=== PATIENT | female | born 1955 | race Caucasian/White ===

== ENCOUNTER 2016-07-16 22:43 | Emergency (ER) | payer MEDICARE, MEDICAID ==
[2016-07-16] MEDS ORDERED: Ondansetron 4 MG/2 ML SDV IVPUSH ONE (22:56)
[2016-07-16] MEDS ORDERED: fentaNYL 100 MCG/2 ML SDV IVPUSH ONE (22:56)
[2016-07-16] MEDS ORDERED: Sodium Chloride 0.9% 10 ML Syringe FLUSH PRN (22:56)
[2016-07-16] MEDS ORDERED: LORazepam 2 MG/ML MDV IVPUSH ONE (22:56)
[2016-07-16] MEDS ORDERED: Sodium Chloride 0.9% 1,000 ML IV SCH (23:00)
[2016-07-17] MEDS ORDERED: Ondansetron 4 MG/2 ML SDV ONE (00:32)
[2016-07-17] MEDS ORDERED: Potassium Chloride 10 MEQ in Premix Bag 1 BAG IV ONE (00:51)
[2016-07-17] MEDS ORDERED: Potassium Chloride 20 MEQ Tab.ER PO ONE (00:51)
[2016-07-17] MEDS ORDERED: Ketorolac 30 MG/ML SDV IVPUSH ONE (01:01)
--- NOTE | 2016-07-17 02:31 | ER ---
DATE SEEN: 07/16/2016 CHIEF COMPLAINT: Vomiting. HISTORY OF PRESENT ILLNESS: A 61-year-old female complaining of sudden onset of vomiting, unable to keep anything down. This started a few hours ago. She also complains of jaw pain and headache at the same time. She reports that she got information that her ex- today and the symptoms started then. She has a history of cyclic vomiting, multiple allergies, recurrent hypokalemia. REVIEW OF SYSTEMS: She has frequency of urination. Denies any constipation, chest pain, or shortness of breath. ALLERGIES: Please see the nurse's notes for the multiple allergies. PHYSICAL EXAMINATION: GENERAL: She is anxious, actively retching. EARS, NOSE, AND THROAT: Negative. NECK: Supple. HEAD: Normocephalic and atraumatic. There is tenderness on the TMJs bilaterally. CARDIOVASCULAR: Normal. RESPIRATORY SYSTEM: Clear. EXTREMITIES: No edema was noted. LABORATORY DATA: White cell count was normal. Potassium is 2.9. Glucose 119. IMPRESSION: 1. Vomiting. 2. Dehydration. 3. Hypokalemia. 4. Headache. 5. TMJ dysfunction. PLAN: I gave her several regimens including fentanyl, lorazepam, Zofran, and 1 L of normal saline. Her symptoms improved some but the headache persisted. I gave her 30 mg of IV Toradol. In addition, I replaced the potassium through the IV and orally. Discharged her home to see her physician tomorrow, return to the ED with any worsening symptoms. TIME SEEN: 2300 hours and discharged at 0103 hours. /[id number] RUBY/MARILYN
[2016-07-17 04:07] VITALS: BP 142/68
== END 2016-07-17 04:30 | disposition home or self-care (01) ==
LOC: FB.ED 22:43
DX: R11.10 Vomiting, unspecified (principal); E86.0 Dehydration; E87.6 Hypokalemia; R51 Headache; M26.603 Bilateral temporomandibular joint disorder, unspecified
CPT/HCPCS: 36415; 80053; 96361; 96365; 96366; 96375; 99284; A9270; J1885; J2060; J2405; J3010; J3480; J7040; 99283

== ENCOUNTER 2016-09-07 10:59 | Emergency (ER) | payer MEDICARE, BC ==
[2016-09-07] MEDS ORDERED: Lidocaine 2% Viscous Solution 15 ML Cup TOP ONE (11:03)
[2016-09-07] MEDS ORDERED: Ketorolac 60 MG/2 ML SDV IM ONE (11:04)
[2016-09-07] MEDS ORDERED: Ondansetron 4 MG Tab.DIS PO ONE (11:04)
[2016-09-07 11:07] VITALS: BP 152/89
--- NOTE | 2016-09-07 11:15 | EDM.PDOC ---
ED HPI GENERAL MEDICAL PROBLEM - General Chief Complaint: Head Injury Stated Complaint: FACE INJURY Time Seen by Provider: 09/07/16 11:00 Source of Information: Reports: Patient, EMS History Limitations: Reports: No Limitations - History of Present Illness INITIAL COMMENTS - FREE TEXT/NARRATIVE: 61 yo female tripped on a small fence near her garden and fell hitting her face on the cement. No LOC. No neck pain. Has mild nausea. No vomiting. Did strike her L deltoid area and has pain there. Last tetanus was about 7 yrs ago. Has a pain pump with Dilaudid. Here via EMS. Vitals stable per EMS. Onset: Today Onset Date: 09/07/16 Onset Time: 10:30 Duration: Minutes: Location: Reports: Face, Upper Extremity, Left Quality: Reports: Ache Severity: Moderate Worsens with: Reports: Other (touching wounds) Context: Reports: Trauma Associated Symptoms: Reports: No Other Symptoms Treatments BANDER HAND: Reports: Other (see below) (none) Face Pain Score (Numeric/FACES): 9 - Related Data Allergies Allergy/AdvReac Type Severity Reaction Status Date / Time Penicillins Allergy Severe Rash Verified 09/07/16 11:05 acetaminophen [From Percocet] Allergy Mild Rash Verified 09/07/16 11:05 gabapentin [From Neurontin] Allergy Mild Nausea and Verified 09/07/16 11:05 Vomiting oxycodone HCl [From Percocet] Allergy Mild Rash Verified 09/07/16 11:05 adhesive Allergy Unknown UNKNOWN Verified 09/07/16 11:05 morphine Allergy Unknown UNKNOWN Verified 09/07/16 11:05 clindamycin HCl Allergy Rash Verified 09/07/16 11:05 [From Cleocin] clindamycin palmitate HCl Allergy Rash Verified 09/07/16 11:05 [From Cleocin] clindamycin phosphate Allergy Rash Verified 09/07/16 11:05 [From Cleocin] hydrocodone Allergy Rash Verified 09/07/16 11:05 telithromycin [From Ketek] Allergy Rash Verified 09/07/16 11:05 ELASTIC BANDAGE IN CLOTHING Allergy Mild Itching Uncoded 09/07/16 11:05 ELASTIC BANDAGES & ZINC Allergy Unknown UNKNOWN Uncoded 09/07/16 11:05 SULFATE Home Meds: Home Meds Furosemide [Lasix] 20 mg PO DAILY 07/17/16 [History] Hydrochlorothiazide 25 mg PO DAILY 07/17/16 [History] Potassium Chloride 20 meq PO DAILY 07/17/16 [History] Potassium Citrate [Potassium Citrate ER] 15 meq PO DAILY 07/17/16 [History] Sulfamethoxazole/Trimethoprim [Bactrim Ds Tablet] 1 tab PO DAILY 07/17/16 [ History] amLODIPine [Norvasc] 5 mg PO DAILY 07/17/16 [History] buPROPion HCl [Wellbutrin Xl] 300 mg PO DAILY 07/17/16 [History] clonazePAM [Clonazepam] 1 mg PO DAILY PRN 07/17/16 [History] tiZANidine HCl [Tizanidine HCl] 4 mg PO DAILY 07/17/16 [History] Social & Family History - Tobacco Use Smoking Status *Q: Current Every Day Smoker Years of Tobacco use: 40 Packs/Tins Daily: 1 Used Tobacco, but Quit: No Second Hand Smoke Exposure: Yes - Caffeine Use Caffeine Use: Reports: Coffee, Energy Drinks, Soda - Recreational Drug Use Recreational Drug Use: No ED ROS GENERAL - Review of Systems Review Of Systems: See Below Constitutional: Reports: No Symptoms HEENT: Reports: No Symptoms Respiratory: Reports: No Symptoms Cardiovascular: Reports: No Symptoms Endocrine: Reports: No Symptoms GI/Abdominal: Reports: No Symptoms : Reports: No Symptoms Musculoskeletal: Reports: Shoulder Pain (left). Denies: Neck Pain, Leg Pain, Foot Pain, Joint Pain, Joint Swelling, Muscle Pain, Muscle Stiffness Skin: Reports: Wound (abrasions/contusions) Neurological: Reports: No Symptoms ED EXAM, HEAD INJURY - Physical Exam Exam: See Below Exam Limited By: No Limitations General Appearance: Alert, WD/WN, No Apparent Distress, Anxious Head: Atraumatic, Facial Abrasions (above left eyebrow), Facial Ecchymosis, Facial Swelling (above the left eyebrow), Facial Tenderness. No: Scalp Lacerations, Scalp Swelling, Scalp Abrasions, Scalp Tenderness Nexus Criteria: Painful Distraction Injuries. No: Posterior, Midline Cervical Tenderness, Evidence of Intoxication, Altered Level of Consciousness, Focal Neurological Deficit Eyes: Bilateral Eye: EOMI, Normal Inspection, PERRL Ears: Normal External Exam, Normal Canal, Hearing Grossly Normal, Normal TMs Nose: Normal Inspection, Normal Mucousa, No Blood Throat/Mouth: Normal Inspection, Normal Lips, Normal Teeth, Normal Gums, Normal Oropharynx, Normal Voice, No Airway Compromise Neck: Non-Tender, Full Range of Motion, Normal Alignment, Normal Inspection Respiratory: No Respiratory Distress, Lungs Clear, Normal Breath Sounds, No Accessory Muscle Use, Chest Non-Tender Cardiovascular: Regular Rate, Rhythm, No Edema GI/Abdominal Exam: Normal Bowel Sounds, Soft, Non-Tender, No Distention Extremities: Other (L shoulder with full ROM). No: Limited Range of Motion Neurologic: costume draper II-XII nml As Tested, No Motor/Sensory Deficits, Alert, Normal Mood/Affect, Oriented x 3 Skin: Normal Color, Warm/Dry, Ecchymosis (above left eyebrow and to L deltoid regions.) - [place] Coma Score Best Eye Response ([place]): (4) Open Spontaneously Best Verbal Response ([place]): (5) Oriented Best Motor Response ([place]): (6) Obeys Commands Shannan Total: 15 Course - Vital Signs Text/Narrative:: viscous xylocaine to wounds before cleaning. Adacel IM, Toradol 60 mg IM, Zofran ODT 4 mg SL Wounds cleaned and dressed. Last Recorded V/S: Last Vital Signs Temp 36.8 C 09/07/16 11:05 Pulse 80 09/07/16 11:05 Resp 20 09/07/16 11:05 BP 152/89 H 09/07/16 11:05 Pulse Ox 100 09/07/16 11:05 - Orders/Labs/Meds Orders: Active Orders 24 hr Category Date Time Status Vaccines to be Administered [RC] PER UNIT ROUTINE Care 09/07/16 11:20 Active Meds: Medications Discontinued Medications Generic Name Dose Route Start Last Admin Trade Name Anyi PRN Reason Stop Dose Admin Diphtheria/Tetanus/Acell Pertussis 0.5 ml 09/07/16 11:20 09/07/16 11:43 Adacel IM 09/07/16 11:21 0.5 ml .ONCE ONE Administration Ketorolac Tromethamine 60 mg 09/07/16 11:04 09/07/16 11:14 Toradol IM 09/07/16 11:05 60 mg ONETIME ONE Administration Lidocaine HCl 15 ml 09/07/16 11:03 09/07/16 11:28 Xylocaine 2% Viscous TOP 09/07/16 11:04 15 ml ONETIME ONE Administration Ondansetron HCl 4 mg 09/07/16 11:04 09/07/16 11:15 Zofran Odt PO 09/07/16 11:05 4 mg ONETIME ONE Administration Departure - Departure Time of Disposition: 12:35 Disposition: Home, Self-Care 01 Condition: Good Clinical Impression: Abrasions of multiple sites, Multiple contusions - Discharge Information Forms: ED Department Discharge - My Orders Last 24 Hours: My Active Orders 09/07/16 11:20 Vaccines to be Administered [RC] PER UNIT ROUTINE - Assessment/Plan Last 24 Hours: My Active Orders 09/07/16 11:20 Vaccines to be Administered [RC] PER UNIT ROUTINE
[2016-09-07] MEDS ORDERED: Diphtheria,Pertussis(Acell),Tetanus Vaccine 0.5 ML SDV IM ONE (11:20)
== END 2016-09-07 12:45 | disposition home or self-care (01) ==
LOC: FB.ED 10:59
DX: S00.83XA Contusion of other part of head, initial encounter (principal); S40.022A Contusion of left upper arm, initial encounter; S00.01XA Abrasion of scalp, initial encounter; F17.210 Nicotine dependence, cigarettes, uncomplicated; Z88.0 Allergy status to penicillin; Z88.8 Allergy status to other drugs, medicaments and biological substances; Z88.5 Allergy status to narcotic agent; Z79.899 Other long term (current) drug therapy; W01.198A Fall on same level from slipping, tripping and stumbling with subsequent striking against other object, initial encounter; Y92.017 Garden or yard in single-family (private) house as the place of occurrence of the external cause
CPT/HCPCS: 90471; 90715; 96372; 99283; A4217; A9270; J1885; 90472

== ENCOUNTER 2016-11-08 22:46 | Emergency (ER) | payer MEDICARE, BC ==
[2016-11-08] MEDS ORDERED: Ketorolac 60 MG/2 ML SDV IM ONE (23:08)
--- NOTE | 2016-11-08 23:14 | EDM.PDOC ---
ED HPI GENERAL MEDICAL PROBLEM - General Stated Complaint: GENERAL PAIN Time Seen by Provider: 11/08/16 23:10 Source of Information: Reports: Patient History Limitations: Reports: No Limitations - History of Present Illness INITIAL COMMENTS - FREE TEXT/NARRATIVE: c/o R thigh pain pt fell in kitchen 2d ago, pain in L thigh where she has a large hematoma also pain in LEs and L shoulder Headache, R shoulder, lower back, R hip, R knee Pain Score (Numeric/FACES): 8 - Related Data Allergies Allergy/AdvReac Type Severity Reaction Status Date / Time Penicillins Allergy Severe Rash Verified 11/08/16 23:02 acetaminophen [From Percocet] Allergy Mild Rash Verified 11/08/16 23:02 gabapentin [From Neurontin] Allergy Mild Nausea and Verified 11/08/16 23:02 Vomiting oxycodone HCl [From Percocet] Allergy Mild Rash Verified 11/08/16 23:02 adhesive Allergy Unknown UNKNOWN Verified 11/08/16 23:02 morphine Allergy Unknown UNKNOWN Verified 11/08/16 23:02 clindamycin HCl Allergy Rash Verified 11/08/16 23:02 [From Cleocin] clindamycin palmitate HCl Allergy Rash Verified 11/08/16 23:02 [From Cleocin] clindamycin phosphate Allergy Rash Verified 11/08/16 23:02 [From Cleocin] hydrocodone Allergy Rash Verified 11/08/16 23:02 telithromycin [From Ketek] Allergy Rash Verified 11/08/16 23:02 ELASTIC BANDAGE IN CLOTHING Allergy Mild Itching Uncoded 11/08/16 23:02 ELASTIC BANDAGES & ZINC Allergy Unknown UNKNOWN Uncoded 11/08/16 23:02 SULFATE Home Meds: Home Meds Furosemide [Lasix] 20 mg PO DAILY 07/17/16 [History] Hydrochlorothiazide 25 mg PO DAILY 07/17/16 [History] Potassium Chloride 20 meq PO DAILY 07/17/16 [History] buPROPion HCl [Wellbutrin Xl] 300 mg PO DAILY 07/17/16 [History] clonazePAM [Clonazepam] 1 mg PO DAILY PRN 07/17/16 [History] tiZANidine HCl [Tizanidine HCl] 4 mg PO DAILY 07/17/16 [History] Acetaminophen [Tylenol Arthritis] 1,300 mg PO BID 11/09/16 [History] Acetaminophen/traMADol [Ultracet] 1 each PO TID PRN 11/09/16 [History] Calcium Carbonate/Vitamin D3 [Os-Joe 500+D] 1 each PO DAILY 11/09/16 [History] Cetirizine [ZyrTEC] 10 mg PO DAILY 11/09/16 [History] Cholecalciferol (Vitamin D3) [Vitamin D3] 1,000 unit PO DAILY 11/09/16 [History] Cyanocobalamin (Vitamin B12) [Vitamin B13] 500 mcg PO DAILY 11/09/16 [History] Multivitamin [Multivitamins] 1 each PO DAILY 11/09/16 [History] Omeprazole [Omeprazole] 20 mg PO BID 11/09/16 [History] Ondansetron [Zofran Odt] 8 mg PO BID PRN 11/09/16 [History] Promethazine [Phenergan] 25 mg PO BEDTIME 11/09/16 [History] Propylene Glycol/PEG 400/Pf [Systane 0.3-0.4% Eye Drops] 1 drop EYEBOTH Q4H PRN 11/09/16 [History] SUMAtriptan [Imitrex Nasal] 5 mg MALACHI Q1H PRN 11/09/16 [History] Scopolamine [Transderm-Scop] 1 each TD Q72H 11/09/16 [History] Synchromed Infusion Med 41 ml IMPLANT .CONT 11/09/16 [History] Triamcinolone Acetonide [Triamcinolone Acetonide 0.1% Crm] 1 gm TRDERM BID PRN 11/09/16 [History] Venlafaxine [Effexor] 100 mg PO BID 11/09/16 [History] clonazePAM [Klonopin] 0.5 mg PO BID PRN 11/09/16 [History] cycloSPORINE [Restasis] 1 drop EYEBOTH BID 11/09/16 [History] sulfaSALAzine [sulfaSALAzine DR] 500 mg PO BID 11/09/16 [History] Past Medical History Cardiovascular History: Reports: None Respiratory History: Reports: Asthma Gastrointestinal History: Reports: Diverticulosis, GERD Genitourinary History: Reports: Renal Disease, Other (See Below) Other Genitourinary History: RENAL FAILURE STAGE III 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 History: Reports: Polycystic Ovaries, Musculoskeletal History: Reports: Fibromyalgia, Osteoarthritis, Other (See Below ) Other Musculoskeletal History: ANKOLOSIS SPONDYLITIS AND OSTEOPENIA Neurological History: Reports: Concussion, Migraines Psychiatric History: Reports: Anxiety, Depression Endocrine/Metabolic History: Reports: Hyperparathyroidism, Osteopenia Hematologic History: Reports: None - Infectious Disease History Infectious Disease History: Reports: Chicken Pox, Measles, Meningitis, Mumps - Past Surgical History GI Surgical History: Reports: Colonoscopy, EGD, Hernia, Abdominal, Other (See Below) Other GI Surgeries/Procedures: GASTRIC BYPASS Female Surgical History: Reports: Breast Biopsy, Hysterectomy, Oophorectomy Endocrine Surgical History: Reports: Parathyroidectomy Neurological Surgical History: Reports: Spinal Fusion Musculoskeletal Surgical History: Reports: Joint Replacement, Knee Replacement Social & Family History - Tobacco Use Smoking Status *Q: Current Every Day Smoker Years of Tobacco use: 40 Packs/Tins Daily: 1 Used Tobacco, but Quit: No Month Tobacco Last Used: 15 Second Hand Smoke Exposure: Yes - Caffeine Use Caffeine Use: Reports: Coffee, Energy Drinks, Soda - Recreational Drug Use Recreational Drug Use: No ED ROS GENERAL - Review of Systems Review Of Systems: See Below Constitutional: Reports: No Symptoms HEENT: Reports: No Symptoms Respiratory: Reports: No Symptoms Cardiovascular: Reports: No Symptoms Endocrine: Reports: No Symptoms GI/Abdominal: Reports: No Symptoms : Reports: No Symptoms Musculoskeletal: Reports: Leg Pain Skin: Reports: No Symptoms Neurological: Reports: No Symptoms Psychiatric: Reports: No Symptoms Hematologic/Lymphatic: Reports: No Symptoms Immunologic: Reports: No Symptoms ED EXAM, GENERAL - Physical Exam Exam: See Below Exam Limited By: No Limitations General Appearance: Alert, WD/WN, Other (anxious) Eye Exam: Bilateral Eye: Normal Inspection Ears: Normal External Exam Nose: Normal Inspection Throat/Mouth: Normal Inspection, Normal Voice, No Airway Compromise Head: Atraumatic, Normocephalic Neck: Normal Inspection, Supple, Non-Tender, Full Range of Motion Respiratory/Chest: No Respiratory Distress, Lungs Clear, Normal Breath Sounds, No Accessory Muscle Use Cardiovascular: Regular Rate, Rhythm, No Edema, No JVD, No Rub, Other (2/6 NAFISA at LSB) GI/Abdominal: Soft, Non-Tender, No Distention Back Exam: Normal Inspection, Full Range of Motion Extremities: Normal Range of Motion, Non-Tender, Other (L thigh with large 25 x 25 x 2 cm superficial purple hematoma, firm, 1+ tender, no warmth, lateral aspect of thigh, smaller ecchymosis of 5 x 5 cm also on LE) Neurological: Alert, Oriented, CN II-XII Intact, No Motor/Sensory Deficits Psychiatric: Normal Mood Skin Exam: Warm, Dry, Intact, No Rash Lymphatic: No Adenopathy Course - Vital Signs Last Recorded V/S: Last Vital Signs Temp 36.8 C 11/08/16 22:46 Pulse 91 11/08/16 22:46 Resp 28 H 11/08/16 22:46 BP 149/84 H 11/08/16 22:46 Pulse Ox 100 11/08/16 22:46 - Orders/Labs/Meds Orders: Active Orders 24 hr Category Date Time Status EKG Documentation Completion [RC] ASDIRECTED Care 11/08/16 23:10 Ordered Lumbar Spine 2 or 3V [CR] Stat Exams 11/08/16 00:15 Taken Pelvis 1V or 2V [CR] Stat Exams 11/08/16 00:15 Taken Ribs 3V w Chest Bi [CR] Stat Exams 11/08/16 00:15 Taken Shoulder Comp Rt [CR] Stat Exams 11/08/16 00:15 Taken STREP SCRN A RAPID W CULT CONF [RM] Stat Lab 11/09/16 00:55 Uncollected TROPONIN I [CHEM] Stat Lab 11/08/16 23:09 Ordered EKG 12 Lead [EK] Routine Ther 11/08/16 23:09 Ordered Labs: Laboratory Tests 11/08/16 11/08/16 Range/Units 23:18 23:18 WBC 8.5 (4.5-12.0) X10-3/uL RBC 4.22 (3.23-5.20) x10(6)uL Hgb 12.5 (11.5-15.5) g/dL Hct 37.0 (30.0-51.3) % MCV 87.6 (80-96) fL MCH 29.7 (27.7-33.6) pg MCHC 33.9 (32.2-35.4) g/dL RDW 12.9 (11.5-15.5) % Plt Count 208 (125-369) X10(3)uL MPV 9.0 (7.4-10.4) fL Neut % (Auto) 57.3 (46-82) % Lymph % (Auto) 33.6 (13-37) % [place] % (Auto) 7.2 (4-12) % Eos % (Auto) 2 (1.0-5.0) % Baso % (Auto) 0 (0-2) % Neut # (Auto) 5.0 (1.6-8.3) # Lymph # (Auto) 2.8 (0.6-5.0) # [place] # (Auto) 0.6 (0.0-1.3) # Eos # (Auto) 0.1 (0.0-0.8) # Baso # (Auto) 0.0 (0.0-0.2) # Sodium 134 L (135-145) mmol/L Potassium 3.0 L (3.5-5.3) mmol/L Chloride 94 L (100-110) mmol/L Carbon Dioxide 29 (23-29) mmol/L BUN 13 (5-20) mg/dL Creatinine 1.2 (0.6-1.3) mg/dL Est Cr Clr Drug Dosing 36.26 mL/min Estimated GFR (MDRD) 46 L (>60) BUN/Creatinine Ratio 10.8 (9-20) Glucose 93 (80-116) mg/dL Calcium 8.9 (8.6-10.2) mg/dL Total Bilirubin 0.6 (0.1-1.3) mg/dL AST 22 D (5-27) IU/L ALT 21 D (14-26) IU/L Alkaline Phosphatase 76 (56-112) IU/L Creatine Kinase 99 (60-160) IU/L Total Protein 7.4 (6.0-8.0) g/dL Albumin 3.8 (3.5-5.2) g/dL Globulin 3.6 g/dL Albumin/Globulin Ratio 1.1 Meds: Medications Discontinued Medications Generic Name Dose Route Start Last Admin Trade Name Freq PRN Reason Stop Dose Admin Ketorolac Tromethamine 60 mg 11/08/16 23:08 11/08/16 23:26 Toradol IM 11/08/16 23:09 60 mg ONETIME ONE Administration Potassium Chloride 40 meq 11/09/16 00:42 Klor-Con M20 PO 11/09/16 00:43 ONETIME ONE - Re-Assessments/Exams Free Text/Narrative Re-Assessment/Exam: 11/09/16 00:56 XR R shoulder neg, XR b/l ribs neg, XR pelvis with no fx, XR l-spine with scoliosis and mod DJD and no fx felt much better after Toradol requested strep test for ST declined K-Dur, takes KCl 20 eq 1 tab qid, took only 2 tabs this AM, says she will take them at home Departure - Departure Time of Disposition: 00:57 Disposition: Home, Self-Care 01 Condition: Fair Clinical Impression: Traumatic hematoma of right thigh, Multiple leg contusions, Bilateral contusion of ribs, Low back strain - Discharge Information Referrals: Juan Townsend MD [Primary Care Provider] - Additional Instructions: Maintain fluids. Take naprosyn 500 mg 1 tab 2 times a day for 7 days. Use ice for 15 minutes to thigh 4 times a day. See your doctor in 2 days. Call your Physician or Return to Emergency Department if: * Your condition worsens in any way. * You develop fever greater than 100.4. * You have vomitting that does not stop with medications. * You have pain that is not controlled with medications. - My Orders Last 24 Hours: My Active Orders 11/08/16 00:15 Lumbar Spine 2 or 3V [CR] Stat Pelvis 1V or 2V [CR] Stat Ribs 3V w Chest Bi [CR] Stat Shoulder Comp Rt [CR] Stat 11/08/16 23:09 TROPONIN I [CHEM] Stat EKG 12 Lead [EK] Routine 11/08/16 23:10 EKG Documentation Completion [RC] ASDIRECTED 11/09/16 00:55 STREP SCRN A RAPID W CULT CONF [RM] Stat - Assessment/Plan Last 24 Hours: My Active Orders 11/08/16 00:15 Lumbar Spine 2 or 3V [CR] Stat Pelvis 1V or 2V [CR] Stat Ribs 3V w Chest Bi [CR] Stat Shoulder Comp Rt [CR] Stat 11/08/16 23:09 TROPONIN I [CHEM] Stat EKG 12 Lead [EK] Routine 11/08/16 23:10 EKG Documentation Completion [RC] ASDIRECTED 11/09/16 00:55 STREP SCRN A RAPID W CULT CONF [RM] Stat
[2016-11-09] MEDS ORDERED: Potassium Chloride 20 MEQ Tab.ER PO ONE (00:42)
[2016-11-09 01:41] VITALS: BP 104/60
--- NOTE | 2016-11-09 11:31 | CR ---
INDICATION: Falls with bilateral rib pain. CHEST WITH BILATERAL RIBS: An AP and PA views of the chest were obtained upright and revealed the heart to be normal in size and shape. The aorta is calcified in the arch area. A mild dextroconvex scoliosis of the mid thoracic spine is noted, with a moderate dextroconvex scoliosis at the thoracolumbar spine. A moderate rotatory component is also noted in that area. No contusion, infiltrate, effusion, or pneumothorax is identified. No definite fracture site was seen. IMPRESSION: No acute process. BILATERAL RIBS: Eight views of the ribs were obtained bilaterally and revealed no fracture site or other definite bony abnormality. IMPRESSION: Scoliosis. MTDD
--- NOTE | 2016-11-09 11:33 | CR ---
INDICATION: Fall, shoulder pain. RIGHT SHOULDER: Three views of the right shoulder revealed mild degenerative changes at the glenohumeral joint with minimal degenerative change at the AC joint. A fracture, dislocation, or other definite bone or joint abnormality, was not identified. IMPRESSION: Mild osteoarthritis. MTDD
--- NOTE | 2016-11-09 11:37 | CR ---
INDICATION: Fall. PELVIS: A single frontal view of the pelvis revealed evidence of a fusion at the L5-S1 level, which appears to be intact with rods and pedicle screws intact. A RANDY on the left appears to be in good position and alignment with no complicating process. The pelvis appears to be intact with no acute fracture or dislocation. Degenerative changes of mild degree are noted at the right sacroiliac joint. The right hip joint shows evidence of very minimal degenerative changes. IMPRESSION: No acute fracture or dislocation. MTDD
--- NOTE | 2016-11-09 11:45 | CR ---
INDICATION: Fall. Nonspecific soreness. LUMBOSACRAL SPINE: Five images of the lumbosacral spine were obtained with frontal and lateral projections and revealed a fusion at the L5-S1 level with rods and pedicle screws. The screws and rods appear to be intact. A moderate dextroconvex scoliosis of the lower lumbar spine is noted, with mild rotatory component. Vertebral body and portions of the disk heights appear to be normal. Narrowing of left lateral aspects of disks at the L3-4, L4-5 levels are noted. Hypertrophic spurring is noted on the left laterally at L3-4. There appears to be sclerosis at posterior elements in general. A definite acute fracture or dislocation was not identified. What appears to be a neuro stimulator wire is noted at the level of the L3 vertebral body on the left. Incidentally noted were calcifications in the abdominal aorta. IMPRESSION: Scoliosis, fusion, but no acute fracture or dislocation suggested. MTDD
== END 2016-11-09 01:50 | disposition home or self-care (01) ==
LOC: FB.ED 22:46
DX: S39.012A Strain of muscle, fascia and tendon of lower back, initial encounter (principal); S20.211A Contusion of right front wall of thorax, initial encounter; S70.11XA Contusion of right thigh, initial encounter; S20.212A Contusion of left front wall of thorax, initial encounter; S80.10XA Contusion of unspecified lower leg, initial encounter; J45.909 Unspecified asthma, uncomplicated; K21.9 Gastro-esophageal reflux disease without esophagitis; M19.90 Unspecified osteoarthritis, unspecified site; F41.9 Anxiety disorder, unspecified; F17.210 Nicotine dependence, cigarettes, uncomplicated; G43.909 Migraine, unspecified, not intractable, without status migrainosus; F32.9 Major depressive disorder, single episode, unspecified; Z88.5 Allergy status to narcotic agent; Z79.899 Other long term (current) drug therapy; Z88.0 Allergy status to penicillin; Z88.1 Allergy status to other antibiotic agents; Z90.710 Acquired absence of both cervix and uterus; X58.XXXA Exposure to other specified factors, initial encounter
CPT/HCPCS: 36415; 71111; 72100; 72170; 73030; 80053; 82550; 84484; 85025; 87081; 87430; 93005; 96372; 99285; J1885; 99284

== ENCOUNTER 2018-06-24 18:44 | Emergency (ER) | payer MEDICARE, BC ==
--- NOTE | 2018-06-24 19:55 | EDM.PDOC ---
ED HPI GENERAL MEDICAL PROBLEM - General Chief Complaint: General Stated Complaint: lump on back w/pain, whitish urine Time Seen by Provider: 06/24/18 19:30 Source of Information: Reports: Patient History Limitations: Reports: No Limitations - History of Present Illness INITIAL COMMENTS - FREE TEXT/NARRATIVE: 63-year-old female with onset of pain in her right lower back on 06/18/2018 when she was walking across a room. She reports that it felt like she had a pulling sensation in her back and then some burning and sharp pain and she noted that the following day she developed some bruising in the area and the pain seemed to worsen somewhat and on Wednesday of last week again (06/21/2018) she was seen by her qualitative field project manager and she brought this area to her attention and she was told that if it got any worse she should seek evaluation. Since Wednesday, she has developed worsening pain and what she feels is a lump along her right flank and the pain seems to shoot from her right lower back around to her right abdomen area it is worse with palpation and with movement. She's had no nausea or vomiting. She has had no fevers or chills. No nausea or vomiting. No leg weakness. She rates pain as an 8/10. She is also noted white-appearing urine over the past 2 days. She's had no dysuria. She's had no hematuria. She's had no problems with urination. There are no other associated signs or symptoms. There are no other modifying factors. 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 (see below) (Nothing) - Related Data Allergies Allergy/AdvReac Type Severity Reaction Status Date / Time Penicillins Allergy Severe Rash Verified 11/08/16 23:02 acetaminophen [From Percocet] Allergy Mild Rash Verified 11/08/16 23:02 gabapentin [From Neurontin] Allergy Mild Nausea and Verified 11/08/16 23:02 Vomiting oxycodone HCl [From Percocet] Allergy Mild Rash Verified 11/08/16 23:02 adhesive Allergy Unknown UNKNOWN Verified 11/08/16 23:02 morphine Allergy Unknown UNKNOWN Verified 11/08/16 23:02 clindamycin HCl Allergy Rash Verified 11/08/16 23:02 [From Cleocin] clindamycin palmitate HCl Allergy Rash Verified 11/08/16 23:02 [From Cleocin] clindamycin phosphate Allergy Rash Verified 11/08/16 23:02 [From Cleocin] hydrocodone Allergy Rash Verified 11/08/16 23:02 telithromycin [From Ketek] Allergy Rash Verified 11/08/16 23:02 ELASTIC BANDAGE IN CLOTHING Allergy Mild Itching Uncoded 11/08/16 23:02 ELASTIC BANDAGES & ZINC Allergy Unknown UNKNOWN Uncoded 11/08/16 23:02 SULFATE Home Meds: Home Meds Furosemide [Lasix] 20 mg PO DAILY PRN 07/17/16 [History] Hydrochlorothiazide 25 mg PO BID 07/17/16 [History] Potassium Chloride 20 meq PO QID 07/17/16 [History] buPROPion HCl [Wellbutrin Xl] 300 mg PO DAILY 07/17/16 [History] clonazePAM [Clonazepam] 2 mg PO BEDTIME 07/17/16 [History] tiZANidine HCl [Tizanidine HCl] 4 mg PO TID 07/17/16 [History] Acetaminophen [Tylenol Arthritis] 1,300 mg PO BID 11/09/16 [History] Acetaminophen/traMADol [Ultracet] 1 each PO TID PRN 11/09/16 [History] Calcium Carbonate/Vitamin D3 [Os-Joe 500+D] 1 each PO DAILY 11/09/16 [History] Cetirizine [ZyrTEC] 10 mg PO DAILY 11/09/16 [History] Cholecalciferol (Vitamin D3) [Vitamin D3] 1,000 unit PO DAILY 11/09/16 [History] Cyanocobalamin (Vitamin B12) [Vitamin B13] 500 mcg PO DAILY 11/09/16 [History] Multivitamin [Multivitamins] 1 each PO DAILY 11/09/16 [History] Naproxen [Naprosyn] 500 mg PO BID #14 tablet 11/09/16 [Rx] Omeprazole 20 mg PO BID 11/09/16 [History] Ondansetron [Zofran Odt] 8 mg PO BID PRN 11/09/16 [History] Promethazine [Phenergan] 25 mg PO BEDTIME 11/09/16 [History] Propylene Glycol/PEG 400/Pf [Systane 0.3-0.4% Eye Drops] 1 drop EYEBOTH Q4H PRN 11/09/16 [History] SUMAtriptan [Imitrex Nasal] 5 mg MLAACHI Q1H PRN 11/09/16 [History] Scopolamine [Transderm-Scop] 1 each TD Q72H 11/09/16 [History] Synchromed Infusion Med 41 ml IMPLANT .CONT 11/09/16 [History] Triamcinolone Acetonide [Triamcinolone Acetonide 0.1% Crm] 1 gm TRDERM BID PRN 11/09/16 [History] Venlafaxine [Effexor] 100 mg PO BID 11/09/16 [History] clonazePAM [Klonopin] 0.5 mg PO BID PRN 11/09/16 [History] cycloSPORINE [Restasis] 1 drop EYEBOTH BID 11/09/16 [History] sulfaSALAzine [sulfaSALAzine DR] 500 mg PO BID 11/09/16 [History] Past Medical History Cardiovascular History: Reports: CAD, Hypertension, ND, PTCA Respiratory History: Reports: Asthma Gastrointestinal History: Reports: Diverticulosis, GERD Genitourinary History: Reports: Renal Disease, Other (See Below) Other Genitourinary History: RENAL FAILURE STAGE III 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 DIET 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 History: Reports: Polycystic Ovaries Musculoskeletal History: Reports: Fibromyalgia, Osteoarthritis, Other (See Below ) Other Musculoskeletal History: ANKOLOSIS SPONDYLITIS AND OSTEOPENIA Neurological History: Reports: Concussion, Migraines Psychiatric History: Reports: Anxiety, Depression Endocrine/Metabolic History: Reports: Hyperparathyroidism, Osteopenia Immunologic History: Reports: Immunosuppression, Other (See Below) Other Immunologic History: states is immunosuppressed from ankalosing spondalosis - Infectious Disease History Infectious Disease History: Reports: Chicken Pox, Measles, Meningitis, Mumps - Past Surgical History Cardiovascular Surgical History: Reports: Coronary Artery Stent GI Surgical History: Reports: Colonoscopy, EGD, Hernia, Abdominal, Other (See Below) Other GI Surgeries/Procedures: GASTRIC BYPASS Female Surgical History: Reports: Breast Biopsy, Hysterectomy, Oophorectomy Endocrine Surgical History: Reports: Parathyroidectomy Neurological Surgical History: Reports: Spinal Fusion Musculoskeletal Surgical History: Reports: Joint Replacement, Knee Replacement Social & Family History - Tobacco Use Smoking Status *Q: Unknown Ever Smoked (Nonsmoker) - Caffeine Use Caffeine Use: Reports: Coffee, Energy Drinks, Soda - Alcohol Use Alcohol Use History: No - Living Situation & Occupation Living situation: Reports: Occupation: Employed (Works at [employer]) ED ROS GENERAL - Review of Systems Review Of Systems: See Below Constitutional: Reports: No Symptoms HEENT: Reports: No Symptoms Respiratory: Reports: No Symptoms Cardiovascular: Reports: No Symptoms Endocrine: Reports: No Symptoms GI/Abdominal: Reports: Other (Right flank pain) : Reports: Flank Pain (Right sided), Other (White urine). Denies: Dysuria, Frequency, Hematuria, Incontinence Musculoskeletal: Reports: Back Pain (Right lower lateral back pain) Skin: Reports: Bruising (In multiple areas with bruising over right lateral lower back) Neurological: Reports: No Symptoms Hematologic/Lymphatic: Reports: No Symptoms Immunologic: Reports: No Symptoms ED EXAM, GENERAL - Physical Exam Exam: See Below Exam Limited By: No Limitations General Appearance: Alert, Moderate Distress, Obese Eye Exam: Bilateral Eye: EOMI, Normal Inspection, PERRL Ears: Normal External Exam, Hearing Grossly Normal Nose: Normal Inspection, Normal Mucosa Throat/Mouth: Normal Inspection, Normal Teeth, Normal Voice, No Airway Compromise Head: Atraumatic, Normocephalic Neck: Normal Inspection, Supple, Non-Tender, Full Range of Motion Respiratory/Chest: No Respiratory Distress, Lungs Clear, Normal Breath Sounds, No Accessory Muscle Use Cardiovascular: Normal Peripheral Pulses, Regular Rate, Rhythm, No Edema, No JVD Peripheral Pulses: 2+: Radial (L), Radial (R) GI/Abdominal: Normal Bowel Sounds, Soft, No Organomegaly, No Distention, Tender (Over right side) Back Exam: Other (Tender over the right lower back with what appears to be a subcutaneous nodule or soft tissue swelling that is tender to palpation. It is not fluctuant or warm. There is no erythema.) Extremities: Normal Range of Motion, No Pedal Edema, Normal Capillary Refill, Other (Multiple bruises on her arms) Neurological: Alert, Oriented, CN II-XII Intact, Normal Cognition, No Motor/ Sensory Deficits Skin Exam: Warm, Dry, Intact, No Rash Course - Vital Signs Last Recorded V/S: Last Vital Signs Temp 36.6 C 05/10/19 19:15 Pulse 81 06/24/18 19:15 Resp 18 06/24/18 19:15 BP 119/66 06/24/18 19:15 Pulse Ox 100 06/24/18 19:15 - Orders/Labs/Meds Orders: Active Orders 24 hr Category Date Time Status Abdomen Pelvis wo Cont [CT] Stat Exams 06/24/18 20:07 Ordered Labs: Laboratory Tests 06/24/18 06/24/18 06/24/18 Range/Units 19:52 19:52 19:52 WBC 6.2 (4.5-12.0) X10-3/uL RBC 4.06 (3.23-5.20) x10(6)uL Hgb 12.0 (11.5-15.5) g/dL Hct 35.8 (30.0-51.3) % MCV 88.2 (80-96) fL MCH 29.7 (27.7-33.6) pg MCHC 33.7 (32.2-35.4) g/dL RDW 14.9 (11.5-15.5) % Plt Count 164 (125-369) X10(3)uL MPV 9.3 (7.4-10.4) fL Neut % (Auto) 35.9 L (46-82) % Lymph % (Auto) 52.5 H (13-37) % Charlton % (Auto) 8.3 (4-12) % Eos % (Auto) 3 (1.0-5.0) % Baso % (Auto) 1 (0-2) % Neut # (Auto) 2.2 (1.6-8.3) # Lymph # (Auto) 3.3 (0.6-5.0) # Charlton # (Auto) 0.5 (0.0-1.3) # Eos # (Auto) 0.2 (0.0-0.8) # Baso # (Auto) 0.0 (0.0-0.2) # PT 10.1 (8.7-11.1) INR 1.04 (0.89-1.13) Sodium 139 (135-145) mmol/L Potassium 3.9 (3.5-5.3) mmol/L Chloride 102 (100-110) mmol/L Carbon Dioxide 31 (21-32) mmol/L BUN 15 (7-18) mg/dL Creatinine 1.4 H (0.55-1.02) mg/dL Est Cr Clr Drug Dosing TNP Estimated GFR (MDRD) 38 L (>60) BUN/Creatinine Ratio 10.7 (9-20) Glucose 88 (80-116) mg/dL Calcium 9.1 (8.6-10.2) mg/dL Total Bilirubin 0.4 (0.1-1.3) mg/dL AST 31 H D (5-25) IU/L ALT 41 H D (12-36) U/L Alkaline Phosphatase 76 (56-112) IU/L Total Protein 7.3 (6.0-8.0) g/dL Albumin 3.3 (3.2-4.6) g/dL Globulin 4.0 g/dL Albumin/Globulin Ratio 0.8 Urine Color (YELLOW) Urine Appearance (CLEAR) Urine pH (5.0-6.5) Ur Specific [place] (1.010-1.025) Urine Protein (NEGATIVE) mg/dL Urine Glucose (UA) (NORMAL) mg/dL Urine Ketones (NEGATIVE) mg/dL Urine Occult Blood (NEGATIVE) Urine Nitrite (NEGATIVE) Urine Bilirubin (NEGATIVE) Urine Urobilinogen (NEGATIVE) mg/dL Ur Leukocyte Esterase (NEGATIVE) Urine RBC (0-5) Urine WBC (0-5) Ur Squamous Epith Cells (NS,R,O) Urine Bacteria (NS) 06/24/18 Range/Units 19:58 WBC (4.5-12.0) X10-3/uL RBC (3.23-5.20) x10(6)uL Hgb (11.5-15.5) g/dL Hct (30.0-51.3) % MCV (80-96) fL MCH (27.7-33.6) pg MCHC (32.2-35.4) g/dL RDW (11.5-15.5) % Plt Count (125-369) X10(3)uL MPV (7.4-10.4) fL Neut % (Auto) (46-82) % Lymph % (Auto) (13-37) % Charlton % (Auto) (4-12) % Eos % (Auto) (1.0-5.0) % Baso % (Auto) (0-2) % Neut # (Auto) (1.6-8.3) # Lymph # (Auto) (0.6-5.0) # Charlton # (Auto) (0.0-1.3) # Eos # (Auto) (0.0-0.8) # Baso # (Auto) (0.0-0.2) # PT (8.7-11.1) INR (0.89-1.13) Sodium (135-145) mmol/L Potassium (3.5-5.3) mmol/L Chloride (100-110) mmol/L Carbon Dioxide (21-32) mmol/L BUN (7-18) mg/dL Creatinine (0.55-1.02) mg/dL Est Cr Clr Drug Dosing Estimated GFR (MDRD) (>60) BUN/Creatinine Ratio (9-20) Glucose (80-116) mg/dL Calcium (8.6-10.2) mg/dL Total Bilirubin (0.1-1.3) mg/dL AST (5-25) IU/L ALT (12-36) U/L Alkaline Phosphatase (56-112) IU/L Total Protein (6.0-8.0) g/dL Albumin (3.2-4.6) g/dL Globulin g/dL Albumin/Globulin Ratio Urine Color Yellow (YELLOW) Urine Appearance Clear (CLEAR) Urine pH 5.0 (5.0-6.5) Ur Specific [place] 1.015 (1.010-1.025) Urine Protein Negative (NEGATIVE) mg/dL Urine Glucose (UA) Normal (NORMAL) mg/dL Urine Ketones Negative (NEGATIVE) mg/dL Urine Occult Blood Negative (NEGATIVE) Urine Nitrite Negative (NEGATIVE) Urine Bilirubin Negative (NEGATIVE) Urine Urobilinogen Normal (NEGATIVE) mg/dL Ur Leukocyte Esterase Negative (NEGATIVE) Urine RBC Not seen (0-5) Urine WBC 0-5 (0-5) Ur Squamous Epith Cells Rare (NS,R,O) Urine Bacteria Rare H (NS) - Radiology Interpretation Free Text/Narrative:: CT scan of the abdomen and pelvis showed no acute abnormalities. Specifically, there was nothing that correlated with her pain. Per the [facility] radiologist. My review of the CT did show some soft tissue stranding (what I would consider associated with a bruise) in her right flank area in the area where she is having the discomfort and the soft tissue swelling. There was no fluid collection or inflammatory process noted. - Re-Assessments/Exams Free Text/Narrative Re-Assessment/Exam: 06/24/18 21:30: Patient has remained vitally stable. Blood tests are reassuringly normal. Her urine test is normal. The CT scan of her abdomen and pelvis showed no definite acute abnormalities. I discussed all of this with the patient. I told her to take the medications that she has as needed. She should avoid any strenuous activity. She should follow-up with her primary doctor. Departure - Departure Time of Disposition: 21:34 Disposition: Home, Self-Care 01 Condition: Good Clinical Impression: Feared condition not demonstrated Contusion of right side of mid back Qualifiers: Encounter type: initial encounter Qualified Code(s): S20.221A - Contusion of right back wall of thorax, initial encounter Contusion of flank and back Qualifiers: Encounter type: initial encounter Qualified Code(s): S30.1XXA - Contusion of abdominal wall, initial encounter - Discharge Information Instructions: Contusion, [id number] Referrals: Kate Anthony DO [Primary Care Provider] - Forms: ED Department Discharge Additional Instructions: Your blood tests were reassuringly normal. Your urine test was normal. Your creatinine was 1.4. Your hemoglobin was normal. The CT scan of your abdomen and pelvis showed no definite acute abnormality and specifically, it did not show anything to explain your symptoms. As we discussed, this appears to be a bruise and possibly a small collection of blood under the skin and a myofascial strain of the muscles in this area. You should avoid any strenuous activity. Follow-up with your primary doctor. Back to the emergency department for marked increase increase in pain, fever, unrelenting vomiting or any other concerning sign or symptom. - My Orders Last 24 Hours: My Active Orders 06/24/18 20:07 Abdomen Pelvis wo Cont [CT] Stat - Assessment/Plan Last 24 Hours: My Active Orders 06/24/18 20:07 Abdomen Pelvis wo Cont [CT] Stat
[2018-06-25 05:35] VITALS: BP 129/80
== END 2018-06-24 21:50 | disposition home or self-care (01) ==
LOC: FB.ED 18:44
DX: S20.221A Contusion of right back wall of thorax, initial encounter (principal); S30.1XXA Contusion of abdominal wall, initial encounter; I25.10 Atherosclerotic heart disease of native coronary artery without angina pectoris; I25.2 Old myocardial infarction; J45.909 Unspecified asthma, uncomplicated; I12.9 Hypertensive chronic kidney disease with stage 1 through stage 4 chronic kidney disease, or unspecified chronic kidney disease; N18.3 Chronic kidney disease, stage 3 (moderate); Z88.0 Allergy status to penicillin; Z88.8 Allergy status to other drugs, medicaments and biological substances; Z88.1 Allergy status to other antibiotic agents; Z79.899 Other long term (current) drug therapy; F41.9 Anxiety disorder, unspecified; F32.9 Major depressive disorder, single episode, unspecified; X58.XXXA Exposure to other specified factors, initial encounter
CPT/HCPCS: 36415; 74176; 80053; 81001; 85025; 85610; 99283-25

== ENCOUNTER 2018-09-26 13:29 | Emergency (ER) | payer MEDICARE, BC ==
[2018-09-26] MEDS ORDERED: Sodium Chloride 0.9% 1,000 ML IV SCH (20:15)
--- NOTE | 2018-09-26 21:08 | EDM.PDOC ---
ED HPI GENERAL MEDICAL PROBLEM - General Chief Complaint: General Stated Complaint: from clinic Time Seen by Provider: 09/26/18 13:50 Source of Information: Reports: Patient, Old Records History Limitations: Reports: No Limitations - History of Present Illness INITIAL COMMENTS - FREE TEXT/NARRATIVE: patient was working out in the gym today and suddenly became very sleepy. Staff noticed she seemed not to be acting right and took her to walk-in clinic. Walk-in staff recommended she be evaluated here given she can barely stay awake. Vitals stable. On evaluation, patient is extremely somnolent, but oriented to self, place, time , and can give me a summary of events. She states that she was feeling fine prior to arrival to gym today and then started her workout, and while doing her 11 minutes on the bike she just didn't feel quite right and was much more tired than usual. After she finished she had a slight headache and sat down, then when she went to do the next part of her exercises staff noticed she didnt seem to be acting quite right and took her to clinic. Patient has a multitude of medical issues and states she is currently working with a number of specialists including rheumatology, gastroenterology, neurology for which she is scheduled for an EMG, and a couple of other doctors to try and figure out why she isn't feeling good. She states that her labs for her ankylosing spondylitis and rheumatologic issues have been off again. She noted a brief episode of chest pain yesterday between 4 and 6 PM, which resolved after 1 nitroglycerin. She did not have any chest pain today while she was working out, did not feel short of breath, did not get nauseous. She has a pain pump which was adjusted 2 weeks ago and she has not had any problems with it. She does not report any other new medications, and no ingestion of any illicit or unknown substances. Right now she complains of a slight headache, and feels very sleepy. She has chronic blurry vision which is unchanged. She denies any other symptoms - Related Data Allergies Allergy/AdvReac Type Severity Reaction Status Date / Time Penicillins Allergy Severe Rash Verified 06/25/18 05:59 gabapentin [From Neurontin] Allergy Mild Nausea and Verified 06/25/18 05:59 Vomiting oxycodone HCl [From Percocet] Allergy Mild Rash Verified 06/25/18 05:59 adhesive Allergy Unknown UNKNOWN Verified 06/25/18 05:59 morphine Allergy Unknown UNKNOWN Verified 06/25/18 05:55 clindamycin HCl Allergy Rash Verified 06/25/18 05:59 [From Cleocin] clindamycin palmitate HCl Allergy Rash Verified 06/25/18 05:59 [From Cleocin] clindamycin phosphate Allergy Rash Verified 06/25/18 05:59 [From Cleocin] hydrocodone Allergy Rash Verified 06/25/18 05:59 Latex, Natural Rubber Allergy Itching Verified 06/25/18 06:00 telithromycin [From Ketek] Allergy Rash Verified 06/25/18 05:59 ELASTIC BANDAGE IN CLOTHING Allergy Mild Itching Uncoded 06/25/18 05:55 ELASTIC BANDAGES & ZINC Allergy Unknown UNKNOWN Uncoded 06/25/18 05:55 SULFATE Home Meds: Home Meds Furosemide [Lasix] 20 mg PO DAILY PRN 07/17/16 [History] Hydrochlorothiazide 25 mg PO BID 07/17/16 [History] Potassium Chloride 20 meq PO QID 07/17/16 [History] buPROPion HCl [Wellbutrin Xl] 300 mg PO DAILY 07/17/16 [History] Acetaminophen [Tylenol Arthritis] 650 mg PO Q8H PRN 11/09/16 [History] Calcium Carbonate/Vitamin D3 [Os-Joe 500+D] 1 tab PO DAILY 11/09/16 [History] Cetirizine [ZyrTEC] 10 mg PO DAILY PRN 11/09/16 [History] Multivitamin [Multivitamins] 1 tab PO DAILY 11/09/16 [History] Omeprazole 20 mg PO 11/09/16 [History] Ondansetron [Zofran Odt] 8 mg PO BID PRN 11/09/16 [History] Propylene Glycol/PEG 400/Pf [Systane 0.3-0.4% Eye Drops] 1 drop EYEBOTH Q4H PRN 11/09/16 [History] Synchromed Infusion Med 41 ml IMPLANT .CONT 11/09/16 [History] Triamcinolone Acetonide [Triamcinolone Acetonide 0.1% Crm] 1 applic TOP BID PRN 11/09/16 [History] Venlafaxine [Effexor] 100 mg PO 1700 11/09/16 [History] clonazePAM [Klonopin] 0.5 mg PO BID PRN 11/09/16 [History] Ascorbate Calcium [Vitamin C] 500 mg PO DAILY 09/27/18 [History] Aspirin 81 mg PO DAILY 09/27/18 [History] Calcitriol [Rocaltrol] 0.25 mcg PO DAILY 09/27/18 [History] Certolizumab Pegol [Cimzia] 200 mg SQ Q14D 09/27/18 [History] Cholestyramine/Sucrose [Cholestyramine] 4 gm PO DAILY 09/27/18 [History] Clopidogrel Bisulfate [Plavix] 75 mg PO DAILY 09/27/18 [History] Diclofenac Sodium [Voltaren] 4 gm TP QID PRN 09/27/18 [History] Estrogens, Conjugated [Premarin Vaginal Crm] 0.5 gm VAG BEDTIME 09/27/18 [ History] Folic Acid 1,200 mcg PO DAILY 09/27/18 [History] Isosorbide Mononitrate [Imdur] 30 mg PO DAILY 09/27/18 [History] Lactulose 20 gm PO BID PRN 09/27/18 [History] Melatonin 10 mg PO BEDTIME 09/27/18 [History] Metoprolol Succinate [Toprol XL] 12.5 mg PO DAILY 09/27/18 [History] Nitroglycerin [Nitrostat] 0.4 mg SL Q5M PRN 09/27/18 [History] Prochlorperazine Maleate [Compazine] 5 - 10 mg PO Q8H PRN 09/27/18 [History] SUMAtriptan [Imitrex Nasal] 1 spray MALACHI ASDIRECTED PRN 09/27/18 [History] SUMAtriptan [Imitrex] 25 mg PO ASDIRECTED 09/27/18 [History] Venlafaxine [Effexor] 150 mg PO DAILY 09/27/18 [History] atorvaSTATin [Lipitor] 40 mg PO BEDTIME 09/27/18 [History] buPROPion HCl [Wellbutrin Xl] 150 mg PO DAILY 09/27/18 [History] clonazePAM [Klonopin] 2 mg PO BEDTIME 09/27/18 [History] tiZANidine [Zanaflex] 2 mg PO BEDTIME PRN 09/27/18 [History] Past Medical History Cardiovascular History: Reports: CAD, Hypertension, ND, PTCA Respiratory History: Reports: Asthma Gastrointestinal History: Reports: Diverticulosis, GERD Genitourinary History: Reports: Renal Disease, Other (See Below) Other Genitourinary History: RENAL FAILURE STAGE III 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 History: Reports: Polycystic Ovaries Musculoskeletal History: Reports: Fibromyalgia, Osteoarthritis, Other (See Below ) Other Musculoskeletal History: ANKOLOSIS SPONDYLITIS AND OSTEOPENIA Neurological History: Reports: Concussion, Migraines Psychiatric History: Reports: Anxiety, Depression Endocrine/Metabolic History: Reports: Hyperparathyroidism, Osteopenia Hematologic History: Reports: None Immunologic History: Reports: Immunosuppression, Other (See Below) Other Immunologic History: states is immunosuppressed from ankalosing spondalosis - Infectious Disease History Infectious Disease History: Reports: Chicken Pox, Measles, Meningitis, Mumps - Past Surgical History Cardiovascular Surgical History: Reports: Coronary Artery Stent GI Surgical History: Reports: Colonoscopy, EGD, Hernia, Abdominal, Other (See Below) Other GI Surgeries/Procedures: GASTRIC BYPASS Female Surgical History: Reports: Breast Biopsy, Hysterectomy, Oophorectomy Endocrine Surgical History: Reports: Parathyroidectomy Neurological Surgical History: Reports: Spinal Fusion Musculoskeletal Surgical History: Reports: Joint Replacement, Knee Replacement Social & Family History - Family History Family Medical History: Noncontributory - Tobacco Use Smoking Status *Q: Former Smoker Used Tobacco, but Quit: Yes Month/Year Tobacco Last Used: 1981 - Caffeine Use Caffeine Use: Reports: Coffee, Energy Drinks, Soda - Alcohol Use Alcohol Use History: No - Recreational Drug Use Recreational Drug Use: No - Living Situation & Occupation Living situation: Reports: Occupation: Employed (Works at [employer]) ED ROS GENERAL - Review of Systems Review Of Systems: ROS reveals no pertinent complaints other than HPI. ( complete review of systems obtained - all positives chronic) ED EXAM, GENERAL - Physical Exam Exam: See Below Free Text/Narrative:: Gen.: Very sleepy, but wakes easily to voice. Head is atraumatic, pupils are equal and reactive, facial muscles are symmetric. There is no sign of any bruising behind ears and canals appear normal. Throat is without erythema, mucous members are moist and there is no tonsillar enlargement or exudates. Uvula and tongue are midline. Facial muscles are symmetric and her neck strength is equal side to side and she has full range of motion without any pain or tenderness in her spine. Heart is regular rate and rhythm and I do not hear a murmur. Lungs are clear throughout with no wheezes or crackles and good air movement. Abdomen positive bowel sounds, soft and nontender with no rebound or guarding. Peripheral pulses +2 in both the upper and lower extremities and she has trace lower extremity edema which she states is normal for her. She has no obvious skin lesions or rashes. There is an old scar on her back secondary to surgery. Strength is equal side to side in both the upper and lower extremities and she has no pronator drift. Gait is normal. Course - Vital Signs Text/Narrative:: initial impression - nonfocal exam, but patient is extremely sleepy. Talked briefly with on phone as well who did not have any additional information. No current med list available but no recent changes in medication. EKG ok. Will get labs, CT head, on monitors. Last Recorded V/S: Last Vital Signs Temp 36.4 C 09/26/18 22:30 Pulse 70 09/26/18 22:30 Resp 16 09/26/18 22:30 BP 119/75 09/26/18 22:30 Pulse Ox 100 09/26/18 22:30 Orthostatic Blood Pressure [ 128/63 Standing] Orthostatic Blood Pressure [ 136/67 Sitting] Orthostatic Blood Pressure [ 122/58 Supine] - Orders/Labs/Meds Labs: Laboratory Tests 09/26/18 09/26/18 09/26/18 Range/Units 14:00 14:00 14:00 WBC 7.8 (4.5-12.0) X10-3/uL RBC 3.94 (3.23-5.20) x10(6)uL Hgb 12.1 (11.5-15.5) g/dL Hct 35.9 (30.0-51.3) % MCV 91.1 (80-96) fL MCH 30.7 (27.7-33.6) pg MCHC 33.6 (32.2-35.4) g/dL RDW 13.8 (11.5-15.5) % Plt Count 152 (125-369) X10(3)uL MPV 9.7 (7.4-10.4) fL Neut % (Auto) 51.7 (46-82) % Lymph % (Auto) 38.4 H (13-37) % [place] % (Auto) 7.3 (4-12) % Eos % (Auto) 2 (1.0-5.0) % Baso % (Auto) 0 (0-2) % Neut # (Auto) 4.0 (1.6-8.3) # Lymph # (Auto) 3.0 (0.6-5.0) # [place] # (Auto) 0.6 (0.0-1.3) # Eos # (Auto) 0.2 (0.0-0.8) # Baso # (Auto) 0.0 (0.0-0.2) # PT 9.9 (8.7-11.1) INR 1.02 (0.89-1.13) Sodium 139 (135-145) mmol/L Potassium 4.4 (3.5-5.3) mmol/L Chloride 106 (100-110) mmol/L Carbon Dioxide 29 (21-32) mmol/L BUN 16 (7-18) mg/dL Creatinine 1.4 H (0.55-1.02) mg/dL Est Cr Clr Drug Dosing 37.97 mL/min Estimated GFR (MDRD) 38 L (>60) BUN/Creatinine Ratio 11.4 (9-20) Glucose 89 (80-116) mg/dL Lactic Acid (0.4-2.2) mmol/L Calcium 9.4 (8.6-10.2) mg/dL Total Bilirubin 0.3 (0.1-1.3) mg/dL AST 33 H (5-25) IU/L ALT 39 H (12-36) U/L Alkaline Phosphatase 79 (56-112) IU/L Troponin I (<0.017-0.056) ng/mL Total Protein 7.2 (6.0-8.0) g/dL Albumin 3.3 (3.2-4.6) g/dL Globulin 3.9 g/dL Albumin/Globulin Ratio 0.9 Urine Color (YELLOW) Urine Appearance (CLEAR) Urine pH (5.0-6.5) Ur Specific [place] (1.010-1.025) Urine Protein (NEGATIVE) mg/dL Urine Glucose (UA) (NORMAL) mg/dL Urine Ketones (NEGATIVE) mg/dL Urine Occult Blood (NEGATIVE) Urine Nitrite (NEGATIVE) Urine Bilirubin (NEGATIVE) Urine Urobilinogen (NEGATIVE) mg/dL Ur Leukocyte Esterase (NEGATIVE) Urine RBC (0-5) Urine WBC (0-5) Ur Squamous Epith Cells (NS,R,O) Urine Bacteria (NS) Urine Opiates Screen (NEGATIVE) Ur Oxycodone Screen (NEGATIVE) Ur Propoxyphene Screen (NEGATIVE) Ur Barbituates Screen (NEGATIVE) Ur Tricyclics Screen (NEGATIVE) Ur Phencyclidine Scrn (NEGATIVE) Ur Amphetamine Screen (NEGATIVE) Urine MDMA Screen (NEGATIVE) U Benzodiazepines Scrn (NEGATIVE) U Cocaine Metab Screen (NEGATIVE) U Marijuana (THC) Screen (NEGATIVE) 09/26/18 09/26/18 09/26/18 Range/Units 14:00 14:00 15:30 WBC (4.5-12.0) X10-3/uL RBC (3.23-5.20) x10(6)uL Hgb (11.5-15.5) g/dL Hct (30.0-51.3) % MCV (80-96) fL MCH (27.7-33.6) pg MCHC (32.2-35.4) g/dL RDW (11.5-15.5) % Plt Count (125-369) X10(3)uL MPV (7.4-10.4) fL Neut % (Auto) (46-82) % Lymph % (Auto) (13-37) % [place] % (Auto) (4-12) % Eos % (Auto) (1.0-5.0) % Baso % (Auto) (0-2) % Neut # (Auto) (1.6-8.3) # Lymph # (Auto) (0.6-5.0) # [place] # (Auto) (0.0-1.3) # Eos # (Auto) (0.0-0.8) # Baso # (Auto) (0.0-0.2) # PT (8.7-11.1) INR (0.89-1.13) Sodium (135-145) mmol/L Potassium (3.5-5.3) mmol/L Chloride (100-110) mmol/L Carbon Dioxide (21-32) mmol/L BUN (7-18) mg/dL Creatinine (0.55-1.02) mg/dL Est Cr Clr Drug Dosing mL/min Estimated GFR (MDRD) (>60) BUN/Creatinine Ratio (9-20) Glucose (80-116) mg/dL Lactic Acid 1.0 (0.4-2.2) mmol/L Calcium (8.6-10.2) mg/dL Total Bilirubin (0.1-1.3) mg/dL AST (5-25) IU/L ALT (12-36) U/L Alkaline Phosphatase (56-112) IU/L Troponin I < 0.017 L (<0.017-0.056) ng/mL Total Protein (6.0-8.0) g/dL Albumin (3.2-4.6) g/dL Globulin g/dL Albumin/Globulin Ratio Urine Color Yellow (YELLOW) Urine Appearance Clear (CLEAR) Urine pH 6.5 (5.0-6.5) Ur Specific [place] 1.015 (1.010-1.025) Urine Protein Negative (NEGATIVE) mg/dL Urine Glucose (UA) Normal (NORMAL) mg/dL Urine Ketones Negative (NEGATIVE) mg/dL Urine Occult Blood Negative (NEGATIVE) Urine Nitrite Negative (NEGATIVE) Urine Bilirubin Negative (NEGATIVE) Urine Urobilinogen 0.2 (NEGATIVE) mg/dL Ur Leukocyte Esterase Negative (NEGATIVE) Urine RBC 0-5 (0-5) Urine WBC 0-5 (0-5) Ur Squamous Epith Cells Few H (NS,R,O) Urine Bacteria Few H (NS) Urine Opiates Screen (NEGATIVE) Ur Oxycodone Screen (NEGATIVE) Ur Propoxyphene Screen (NEGATIVE) Ur Barbituates Screen (NEGATIVE) Ur Tricyclics Screen (NEGATIVE) Ur Phencyclidine Scrn (NEGATIVE) Ur Amphetamine Screen (NEGATIVE) Urine MDMA Screen (NEGATIVE) U Benzodiazepines Scrn (NEGATIVE) U Cocaine Metab Screen (NEGATIVE) U Marijuana (THC) Screen (NEGATIVE) 09/26/18 09/26/18 09/26/18 Range/Units 15:30 20:11 20:15 WBC (4.5-12.0) X10-3/uL RBC (3.23-5.20) x10(6)uL Hgb (11.5-15.5) g/dL Hct (30.0-51.3) % MCV (80-96) fL MCH (27.7-33.6) pg MCHC (32.2-35.4) g/dL RDW (11.5-15.5) % Plt Count (125-369) X10(3)uL MPV (7.4-10.4) fL Neut % (Auto) (46-82) % Lymph % (Auto) (13-37) % [place] % (Auto) (4-12) % Eos % (Auto) (1.0-5.0) % Baso % (Auto) (0-2) % Neut # (Auto) (1.6-8.3) # Lymph # (Auto) (0.6-5.0) # [place] # (Auto) (0.0-1.3) # Eos # (Auto) (0.0-0.8) # Baso # (Auto) (0.0-0.2) # PT (8.7-11.1) INR (0.89-1.13) Sodium (135-145) mmol/L Potassium (3.5-5.3) mmol/L Chloride (100-110) mmol/L Carbon Dioxide (21-32) mmol/L BUN (7-18) mg/dL Creatinine (0.55-1.02) mg/dL Est Cr Clr Drug Dosing mL/min Estimated GFR (MDRD) (>60) BUN/Creatinine Ratio (9-20) Glucose (80-116) mg/dL Lactic Acid (0.4-2.2) mmol/L Calcium (8.6-10.2) mg/dL Total Bilirubin (0.1-1.3) mg/dL AST (5-25) IU/L ALT (12-36) U/L Alkaline Phosphatase (56-112) IU/L Troponin I < 0.017 L (<0.017-0.056) ng/mL Total Protein (6.0-8.0) g/dL Albumin (3.2-4.6) g/dL Globulin g/dL Albumin/Globulin Ratio Urine Color (YELLOW) Urine Appearance (CLEAR) Urine pH (5.0-6.5) Ur Specific [place] (1.010-1.025) Urine Protein (NEGATIVE) mg/dL Urine Glucose (UA) (NORMAL) mg/dL Urine Ketones (NEGATIVE) mg/dL Urine Occult Blood (NEGATIVE) Urine Nitrite (NEGATIVE) Urine Bilirubin (NEGATIVE) Urine Urobilinogen (NEGATIVE) mg/dL Ur Leukocyte Esterase (NEGATIVE) Urine RBC (0-5) Urine WBC (0-5) Ur Squamous Epith Cells (NS,R,O) Urine Bacteria (NS) Urine Opiates Screen Positive H Positive H (NEGATIVE) Ur Oxycodone Screen Negative Negative (NEGATIVE) Ur Propoxyphene Screen Negative Negative (NEGATIVE) Ur Barbituates Screen Negative Negative (NEGATIVE) Ur Tricyclics Screen Negative Negative (NEGATIVE) Ur Phencyclidine Scrn Negative Negative (NEGATIVE) Ur Amphetamine Screen Positive H Positive H (NEGATIVE) Urine MDMA Screen Negative Negative (NEGATIVE) U Benzodiazepines Scrn Negative Negative (NEGATIVE) U Cocaine Metab Screen Negative Negative (NEGATIVE) U Marijuana (THC) Screen Negative Negative (NEGATIVE) Meds: Medications Discontinued Medications Generic Name Dose Route Start Last Admin Trade Name Freq PRN Reason Stop Dose Admin Sodium Chloride 1,000 mls @ 150 mls/hr 09/26/18 20:15 09/26/18 21:30 Normal Saline IV 150 mls/hr ASDIRECTED CORNELIUS Infusion - Re-Assessments/Exams Free Text/Narrative Re-Assessment/Exam: labs reviewed, CBC normal, troponin negative, creatinine elevated but no other abnormalities, uncertain what her baseline is. Head CT shows old lacunar infarc. Utox shows opioids and amphetamine positive. Patient more awake now, asking for something to drink per report. will give small bolus normal saline as well Free Text/Narrative Re-Assessment/Exam: recheck -- patient awake, alert, states she feels fine, asking to go home. Has a lot of medical issues and doesn't want to be in hospital any more than necessary. No focal symptoms. She thinks she just overdid it with her exercise and has been under a lot of stress. Reviewed story and ROS at length and no other findings. Updated med list - on injectable biologic, so significant immunosuppression. No changes creatinine above baseline --last recorded on her mychart was 1.3. I asked her about positive utox, she was shocked at the amphetamine positive, adamantly denies any drug use. Will ask pharmacy to look into a cross- reactivity on the assay in the morning. She has Dilaudid in her pain pump so that accounts for the opioids. Will have nursing walk her around department. I think she is ok for outpatient followup at this point. Free Text/Narrative Re-Assessment/Exam: patient able to walk around department. Nursing notes she needed a bit of support and has been recommended to use a cane at home, which she doesn't like to do. here to pick her up. ADDENDUM - pharmacy notes high-dose wellbutrin can cause amphetamine positive on drug screen, which is likely what happened here. I asked that they please call patient to inform as well. Departure - Departure Time of Disposition: 22:07 Disposition: Home, Self-Care 01 Condition: Fair Clinical Impression: Somnolence - Discharge Information *PRESCRIPTION DRUG MONITORING PROGRAM REVIEWED*: Yes *COPY OF PRESCRIPTION DRUG MONITORING REPORT IN PATIENT ABEL: Yes Instructions: Near-Syncope, Lice, Adult Referrals: Dewayne Barrios MD [Primary Care Provider] - Forms: ED Department Discharge Additional Instructions: RECOMMEND recheck BMP later this week --PCP should be able to do this. Recommend contacting office to let them know you were evaluated here. If worsening symptoms, fever, continuing to feel unwell, dizzy, chest pain, short of breath, decreased exercise tolerance - return for recheck Labs today: creatinine 1.4 --above baseline LFTs 33, 39 --appears new troponin negative X2. EKG no changes CBC normal Exam - no focal findings
[2018-09-26 22:45] VITALS: BP 119/75; PULSE 70
--- NOTE | 2018-09-27 10:57 | CT ---
INDICATION: Altered mental status, lethargy. CT HEAD WITHOUT CONTRAST: Spiral examination of the brain was obtained - no comparisons. Total exam DLP = 1,270.76 mGy-cm. Paranasal sinuses and mastoid air cells were aerated. The orbits appear to be intact. No cranial abnormality was identified. There is a low density abnormality of tiny size in the basal ganglia inferiorly , raising question of lacunar infarct. This could represent unusual vascularity. There are some calcifications in the basal ganglia on the right, which are most likely not of clinical significance. No other definite abnormal areas of density were identified. No hemorrhage or hematoma was seen. IMPRESSION: 1. No definite acute intracranial abnormality. 2. Possible lacunar infarct at the left basal ganglia. Report was called to Mirian Ca DO at 1605 hours on 09/26/18. [facility]
== END 2018-09-26 23:13 | disposition home or self-care (01) ==
LOC: FB.ED 13:29
DX: R40.0 Somnolence (principal); I12.9 Hypertensive chronic kidney disease with stage 1 through stage 4 chronic kidney disease, or unspecified chronic kidney disease; N18.3 Chronic kidney disease, stage 3 (moderate); F32.9 Major depressive disorder, single episode, unspecified; K21.9 Gastro-esophageal reflux disease without esophagitis; F41.9 Anxiety disorder, unspecified; I25.2 Old myocardial infarction; Z79.82 Long term (current) use of aspirin; Z88.5 Allergy status to narcotic agent; Z91.040 Latex allergy status; Z88.8 Allergy status to other drugs, medicaments and biological substances; Z88.1 Allergy status to other antibiotic agents; Z88.0 Allergy status to penicillin; Z87.891 Personal history of nicotine dependence
CPT/HCPCS: 36415; 70450; 80053; 80305; 81001; 83605; 84484; 85025; 85610; 93005; 99284; J7030; 93010

== ENCOUNTER 2018-10-27 06:38 | Emergency (ER) | payer MEDICARE, BC ==
--- NOTE | 2018-10-27 07:44 | EDM.PDOC ---
ED HPI GENERAL MEDICAL PROBLEM - General Chief Complaint: Head Injury Stated Complaint: FELL HEAD INJURY Time Seen by Provider: 10/27/18 07:44 Source of Information: Reports: Patient History Limitations: Reports: No Limitations - History of Present Illness INITIAL COMMENTS - FREE TEXT/NARRATIVE: Patient is a 63-year-old female this morning who presents with a fall after she was walking out of work, she went through some water in a puddle, caught toe on a crack in the concrete sticking up, slipped and landed in the water on the concrete, striking her head and cheek in the process. She denies any loss of consciousness. She said she sat there for Moment stunned, tried to call a coworker to come and get her but then her phone was so she got up and got into her car and warmed up. She very slowly drove herself to the ER as her phone is still not with any battery. She reports that her head hurts and she has a significant bruise there. She had a similar kind of fall 2 years ago and struck her head in the same place, and this has her very worried. When she arrived at the ER she was able to walk to the door but reports that it was very difficult. She in general has had a lot of difficulties with balance and doesn' t feel super stable on her feet. No change in vision, no facial tingling change in hearing or ringing in her ears. Very mild nausea. L side of face, headache Pain Score (Numeric/FACES): 8 - Related Data Allergies Allergy/AdvReac Type Severity Reaction Status Date / Time Penicillins Allergy Severe Rash Verified 10/27/18 06:50 gabapentin [From Neurontin] Allergy Mild Nausea and Verified 10/27/18 06:50 Vomiting oxycodone HCl [From Percocet] Allergy Mild Rash Verified 10/27/18 06:50 adhesive Allergy Unknown UNKNOWN Verified 10/27/18 06:50 morphine Allergy Unknown UNKNOWN Verified 10/27/18 06:50 clindamycin HCl Allergy Rash Verified 10/27/18 06:50 [From Cleocin] clindamycin palmitate HCl Allergy Rash Verified 10/27/18 06:50 [From Cleocin] clindamycin phosphate Allergy Rash Verified 10/27/18 06:50 [From Cleocin] hydrocodone Allergy Rash Verified 10/27/18 06:50 Latex, Natural Rubber Allergy Itching Verified 10/27/18 06:50 telithromycin [From Ketek] Allergy Rash Verified 10/27/18 06:50 ELASTIC BANDAGE IN CLOTHING Allergy Mild Itching Uncoded 10/27/18 06:50 ELASTIC BANDAGES & ZINC Allergy Unknown UNKNOWN Uncoded 10/27/18 06:50 SULFATE Home Meds: Home Meds Furosemide [Lasix] 20 mg PO DAILY PRN 07/17/16 [History] Hydrochlorothiazide 25 mg PO BID 07/17/16 [History] Potassium Chloride 20 meq PO QID 07/17/16 [History] buPROPion HCl [Wellbutrin Xl] 300 mg PO DAILY 07/17/16 [History] Acetaminophen [Tylenol Arthritis] 650 mg PO Q8H PRN 11/09/16 [History] Calcium Carbonate/Vitamin D3 [Os-Joe 500+D] 1 tab PO TID 11/09/16 [History] Cetirizine [ZyrTEC] 10 mg PO DAILY PRN 11/09/16 [History] Multivitamin [Multivitamins] 1 tab PO DAILY 11/09/16 [History] Omeprazole 20 mg PO 11/09/16 [History] Ondansetron [Zofran Odt] 8 mg PO BID PRN 11/09/16 [History] Propylene Glycol/PEG 400/Pf [Systane 0.3-0.4% Eye Drops] 1 drop EYEBOTH Q4H PRN 11/09/16 [History] Synchromed Infusion Med 41 ml IMPLANT .CONT 11/09/16 [History] Triamcinolone Acetonide [Triamcinolone Acetonide 0.1% Crm] 1 applic TOP BID PRN 11/09/16 [History] Venlafaxine [Effexor] 100 mg PO 1700 11/09/16 [History] clonazePAM [Klonopin] 0.5 mg PO BID PRN 11/09/16 [History] Aspirin 81 mg PO DAILY 09/27/18 [History] Calcitriol [Rocaltrol] 0.25 mcg PO DAILY 09/27/18 [History] Certolizumab Pegol [Cimzia] 200 mg SQ Q14D 09/27/18 [History] Cholestyramine/Sucrose [Cholestyramine] 4 gm PO DAILY 09/27/18 [History] Clopidogrel Bisulfate [Plavix] 75 mg PO DAILY 09/27/18 [History] Diclofenac Sodium [Voltaren] 4 gm TP QID PRN 09/27/18 [History] Estrogens, Conjugated [Premarin Vaginal Crm] 0.5 gm VAG BEDTIME 09/27/18 [ History] Folic Acid 1,200 mcg PO DAILY 09/27/18 [History] Isosorbide Mononitrate [Imdur] 30 mg PO DAILY 09/27/18 [History] Lactulose 20 gm PO BID PRN 09/27/18 [History] Melatonin 10 mg PO BEDTIME 09/27/18 [History] Metoprolol Succinate [Toprol XL] 12.5 mg PO DAILY 09/27/18 [History] Nitroglycerin [Nitrostat] 0.4 mg SL Q5M PRN 09/27/18 [History] Prochlorperazine Maleate [Compazine] 5 - 10 mg PO Q8H PRN 09/27/18 [History] SUMAtriptan [Imitrex Nasal] 1 spray MALACHI ASDIRECTED PRN 09/27/18 [History] SUMAtriptan [Imitrex] 25 mg PO ASDIRECTED 09/27/18 [History] Venlafaxine [Effexor] 150 mg PO DAILY 09/27/18 [History] atorvaSTATin [Lipitor] 40 mg PO DAILY 09/27/18 [History] buPROPion HCl [Wellbutrin Xl] 150 mg PO DAILY 09/27/18 [History] clonazePAM [Klonopin] 2 mg PO BEDTIME 09/27/18 [History] tiZANidine [Zanaflex] 2 mg PO BEDTIME PRN 09/27/18 [History] Past Medical History Cardiovascular History: Reports: CAD, Hypertension, [place], PTCA, Stents Respiratory History: Reports: Asthma Gastrointestinal History: Reports: Diverticulosis, GERD Genitourinary History: Reports: Renal Disease, Other (See Below) Other Genitourinary History: RENAL FAILURE STAGE III 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 DIET CAN DOFFER History: Reports: Polycystic Ovaries, Other CAN DOFFER History: Musculoskeletal History: Reports: Arthritis, Fracture, Fibromyalgia, Osteoarthritis, Other (See Below) Other Musculoskeletal History: ANKOLOSIS SPONDYLITIS AND OSTEOPENIA, hx fx L lower leg Neurological History: Reports: Concussion, Migraines Psychiatric History: Reports: Anxiety, Depression Endocrine/Metabolic History: Reports: Hyperparathyroidism, Obesity/BMI 30+, Osteopenia Hematologic History: Reports: Blood Transfusion(s) Immunologic History: Reports: Immunosuppression, Other (See Below) Other Immunologic History: states is immunosuppressed from ankalosing spondalosis Dermatologic History: Reports: Other (See Below) Other Dermatologic History: has mites - Infectious Disease History Infectious Disease History: Reports: Chicken Pox, Mumps - Past Surgical History Cardiovascular Surgical History: Reports: Coronary Artery Stent GI Surgical History: Reports: Bariatric Procedure, Cholecystectomy, Colonoscopy , EGD, Hernia, Abdominal, Other (See Below) Other GI Surgeries/Procedures: GASTRIC BYPASS Female Surgical History: Reports: Breast Biopsy, Hysterectomy, Oophorectomy, Other (See Below) Other Female Surgeries/Procedures: rectocele & cystocele repair Endocrine Surgical History: Reports: Parathyroidectomy Neurological Surgical History: Reports: Spinal Fusion Musculoskeletal Surgical History: Reports: Hip Replacement, Knee Replacement Other Musculoskeletal Surgeries/Procedures:: L hip & R knee replacements Social & Family History - Family History Family Medical History: Noncontributory - Tobacco Use Smoking Status *Q: Former Smoker Used Tobacco, but Quit: Yes Month/Year Tobacco Last Used: 2012 - Caffeine Use Caffeine Use: Reports: Coffee, Soda, Tea - Alcohol Use Alcohol Use History: No - Recreational Drug Use Recreational Drug Use: No - Living Situation & Occupation Living situation: Reports: Occupation: Employed (Works at [employer]) ED ROS GENERAL - Review of Systems Review Of Systems: ROS reveals no pertinent complaints other than HPI. ED EXAM, HEAD INJURY - Physical Exam Exam: See Below Text/Narrative:: Gen.: Alert, pleasant. Focused on some bugs which caused some bites on her legs. Her head has significant contusion forming on the left upper forehead, and there is a slight abrasion on her left cheekbone. There is no bleeding. The rest of her head is atraumatic, her neck is freely movable and without any tenderness or pain. She has no spinous process tenderness or pain in her back. Pupils are equal and reactive, facial muscles are symmetric, tongue and uvula are midline. Throat is without erythema mucous members are moist. Tympanic members are clear bilaterally with normal light reflex. Heart is regular rate and rhythm, I do not hear murmur. Lungs are clear throughout with no wheezes or crackles. Chest wall is nontender. Peripheral pulses +2 in the upper and lower extremities, she has no lower extremity edema. her pants are completely soaked through. Her legs have multiple bruises and reddened lesions like she is scratching at them. Course - Vital Signs Text/Narrative:: Head CT ordered given fall on Plavix. Mechanical fall. Significant contusion, hemostatic. No evidence of other injury at this time Last Recorded V/S: Last Vital Signs Temp 36.7 C 10/27/18 06:38 Pulse 86 10/27/18 10:18 Resp 18 10/27/18 10:18 BP 129/78 10/27/18 10:18 Pulse Ox 100 10/27/18 10:18 - Orders/Labs/Meds Orders: Active Orders 24 hr Category Date Time Status Head wo Cont [CT] Stat Exams 10/27/18 07:44 Taken - Re-Assessments/Exams Free Text/Narrative Re-Assessment/Exam: 10/27/18 08:[address] personally reviewed, I do not see any evidence of bleed. Free Text/Narrative Re-Assessment/Exam: 10/27/18 official report returned, no evidence of intracranial hemorrhage or other abnormalities noted except for a hematoma on the left frontal scalp. Patient has remained stable here other than a complaint bugs underneath her skin , which is deferred to PCP. We'll plan to discharge to home, recommended rest today, okay to work tomorrow she feels up to it. She does not have evidence of a concussion. See discharge instructions, patient was in agreement with this plan and all questions were answered. Discussed reasons to return to ED as well Departure - Departure Time of Disposition: 09:52 Disposition: Home, Self-Care 01 Condition: Good Clinical Impression: Scalp contusion - Discharge Information *PRESCRIPTION DRUG MONITORING PROGRAM REVIEWED*: Yes *COPY OF PRESCRIPTION DRUG MONITORING REPORT IN PATIENT ABEL: No Instructions: Facial or Scalp Contusion Referrals: PCP,Not In Area [Primary Care Provider] - Forms: ED Department Discharge Additional Instructions: plenty of rest today ok to work tomorrow if feel like it can take tylenol for headache, or use ice pack. Ibuprofen is ok as well. Minimize activity that requires a lot of mental concentration like being on phone for lengthy time period, this will help your headache recover Likely you will develop a very significant bruise, and the blood will drain down towards your face and you may end up with a black eye as well. If you develop significant changes in vision, severe headache, vomiting, fever, neck stiffness, or other symptoms of concern return to the ER f/u recheck in walk-in clinic this weekend. They can also look at your skin lesions. - My Orders Last 24 Hours: My Active Orders 10/27/18 07:44 Head wo Cont [CT] Stat - Assessment/Plan Last 24 Hours: My Active Orders 10/27/18 07:44 Head wo Cont [CT] Stat
[2018-10-27 12:38] VITALS: BP 129/78; PULSE 86
== END 2018-10-27 10:33 | disposition home or self-care (01) ==
LOC: FB.ED 06:38
DX: S00.03XA Contusion of scalp, initial encounter (principal); S80.12XA Contusion of left lower leg, initial encounter; S80.11XA Contusion of right lower leg, initial encounter; S00.81XA Abrasion of other part of head, initial encounter; I25.2 Old myocardial infarction; J45.909 Unspecified asthma, uncomplicated; K21.9 Gastro-esophageal reflux disease without esophagitis; I12.9 Hypertensive chronic kidney disease with stage 1 through stage 4 chronic kidney disease, or unspecified chronic kidney disease; N18.3 Chronic kidney disease, stage 3 (moderate); F41.9 Anxiety disorder, unspecified; F32.9 Major depressive disorder, single episode, unspecified; G43.909 Migraine, unspecified, not intractable, without status migrainosus; E21.3 Hyperparathyroidism, unspecified; Z88.0 Allergy status to penicillin; Z88.8 Allergy status to other drugs, medicaments and biological substances; Z88.6 Allergy status to analgesic agent; Z91.048 Other nonmedicinal substance allergy status; Z88.5 Allergy status to narcotic agent; Z88.1 Allergy status to other antibiotic agents; Z91.040 Latex allergy status; Z79.82 Long term (current) use of aspirin; Z79.899 Other long term (current) drug therapy; Z87.891 Personal history of nicotine dependence; W01.198A Fall on same level from slipping, tripping and stumbling with subsequent striking against other object, initial encounter
CPT/HCPCS: 70450; 99283-25

== ENCOUNTER 2018-11-08 14:48 | Emergency (ER) | payer MEDICARE, BC ==
--- NOTE | 2018-11-08 15:26 | EDM.PDOC ---
ED HPI GENERAL MEDICAL PROBLEM - General Time Seen by Provider: 11/08/18 15:27 Source of Information: Reports: Patient History Limitations: Reports: No Limitations - History of Present Illness INITIAL COMMENTS - FREE TEXT/NARRATIVE: c/o worm in her hair pt states she has worms in her hair and brings in a piece of thread that she said she took from her hair she says they are burrowing into her skin and has evidence of excoriation of her forearm and dry skin without any foreign material says this has been going on for months had used a shampoo that urgent care had given her had d/w her PCP in [place] 3w ago Right arm Pain Score (Numeric/FACES): 7 - Related Data Allergies Allergy/AdvReac Type Severity Reaction Status Date / Time Penicillins Allergy Severe Rash Verified 11/08/18 15:41 gabapentin [From Neurontin] Allergy Mild Nausea and Verified 11/08/18 15:41 Vomiting oxycodone HCl [From Percocet] Allergy Mild Rash Verified 11/08/18 15:41 adhesive Allergy Unknown UNKNOWN Verified 11/08/18 15:41 morphine Allergy Unknown UNKNOWN Verified 11/08/18 15:41 clindamycin HCl Allergy Rash Verified 11/08/18 15:41 [From Cleocin] clindamycin palmitate HCl Allergy Rash Verified 11/08/18 15:41 [From Cleocin] clindamycin phosphate Allergy Rash Verified 11/08/18 15:41 [From Cleocin] hydrocodone Allergy Rash Verified 11/08/18 15:41 Latex, Natural Rubber Allergy Itching Verified 11/08/18 15:41 telithromycin [From Ketek] Allergy Rash Verified 11/08/18 15:41 ELASTIC BANDAGE IN CLOTHING Allergy Mild Itching Uncoded 10/27/18 06:50 ELASTIC BANDAGES & ZINC Allergy Unknown UNKNOWN Uncoded 10/27/18 06:50 SULFATE Home Meds: Home Meds Furosemide [Lasix] 20 mg PO DAILY PRN 07/17/16 [History] Hydrochlorothiazide 25 mg PO BID 07/17/16 [History] Potassium Chloride 20 meq PO QID 07/17/16 [History] buPROPion HCl [Wellbutrin Xl] 300 mg PO DAILY 07/17/16 [History] Acetaminophen [Tylenol Arthritis] 650 mg PO Q8H PRN 11/09/16 [History] Calcium Carbonate/Vitamin D3 [Os-Joe 500+D] 1 tab PO TID 11/09/16 [History] Cetirizine [ZyrTEC] 10 mg PO DAILY PRN 11/09/16 [History] Multivitamin [Multivitamins] 1 tab PO DAILY 11/09/16 [History] Omeprazole 20 mg PO 08,11/09/16 [History] Ondansetron [Zofran Odt] 8 mg PO BID PRN 11/09/16 [History] Propylene Glycol/PEG 400/Pf [Systane 0.3-0.4% Eye Drops] 1 drop EYEBOTH Q4H PRN 11/09/16 [History] Synchromed Infusion Med 41 ml IMPLANT .CONT 11/09/16 [History] Triamcinolone Acetonide [Triamcinolone Acetonide 0.1% Crm] 1 applic TOP BID PRN 11/09/16 [History] Venlafaxine [Effexor] 100 mg PO 1700 11/09/16 [History] clonazePAM [Klonopin] 0.5 mg PO BID PRN 11/09/16 [History] Aspirin 81 mg PO DAILY 09/27/18 [History] Calcitriol [Rocaltrol] 0.25 mcg PO DAILY 09/27/18 [History] Certolizumab Pegol [Cimzia] 200 mg SQ Q14D 09/27/18 [History] Cholestyramine/Sucrose [Cholestyramine] 4 gm PO DAILY 09/27/18 [History] Clopidogrel Bisulfate [Plavix] 75 mg PO DAILY 09/27/18 [History] Diclofenac Sodium [Voltaren] 4 gm TP QID PRN 09/27/18 [History] Estrogens, Conjugated [Premarin Vaginal Crm] 0.5 gm VAG BEDTIME 09/27/18 [ History] Folic Acid 1,200 mcg PO DAILY 09/27/18 [History] Isosorbide Mononitrate [Imdur] 30 mg PO DAILY 09/27/18 [History] Lactulose 20 gm PO BID PRN 09/27/18 [History] Melatonin 10 mg PO BEDTIME 09/27/18 [History] Metoprolol Succinate [Toprol XL] 12.5 mg PO DAILY 09/27/18 [History] Nitroglycerin [Nitrostat] 0.4 mg SL Q5M PRN 09/27/18 [History] Prochlorperazine Maleate [Compazine] 5 - 10 mg PO Q8H PRN 09/27/18 [History] SUMAtriptan [Imitrex Nasal] 1 spray MALACHI ASDIRECTED PRN 09/27/18 [History] SUMAtriptan [Imitrex] 25 mg PO ASDIRECTED 09/27/18 [History] Venlafaxine [Effexor] 150 mg PO DAILY 09/27/18 [History] atorvaSTATin [Lipitor] 40 mg PO DAILY 09/27/18 [History] buPROPion HCl [Wellbutrin Xl] 150 mg PO DAILY 09/27/18 [History] clonazePAM [Klonopin] 2 mg PO BEDTIME 09/27/18 [History] tiZANidine [Zanaflex] 2 mg PO BEDTIME PRN 09/27/18 [History] Past Medical History Cardiovascular History: Reports: CAD, Hypertension, [place], PTCA, Stents Respiratory History: Reports: Asthma Gastrointestinal History: Reports: Diverticulosis, GERD Genitourinary History: Reports: Renal Disease, Other (See Below) Other Genitourinary History: RENAL FAILURE STAGE III 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 DIET 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: Reports: Polycystic Ovaries, Other 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: Musculoskeletal History: Reports: Arthritis, Fracture, Fibromyalgia, Osteoarthritis, Other (See Below) Other Musculoskeletal History: ANKOLOSIS SPONDYLITIS AND OSTEOPENIA, hx fx L lower leg Neurological History: Reports: Concussion, Migraines Psychiatric History: Reports: Anxiety, Depression Endocrine/Metabolic History: Reports: Hyperparathyroidism, Obesity/BMI 30+, Osteopenia Hematologic History: Reports: Blood Transfusion(s) Immunologic History: Reports: Immunosuppression, Other (See Below) Other Immunologic History: states is immunosuppressed from ankalosing spondalosis Dermatologic History: Reports: Other (See Below) Other Dermatologic History: has mites - Infectious Disease History Infectious Disease History: Reports: Chicken Pox, Mumps - Past Surgical History Cardiovascular Surgical History: Reports: Coronary Artery Stent GI Surgical History: Reports: Bariatric Procedure, Cholecystectomy, Colonoscopy , EGD, Hernia, Abdominal, Other (See Below) Other GI Surgeries/Procedures: GASTRIC BYPASS Female Surgical History: Reports: Breast Biopsy, Hysterectomy, Oophorectomy, Other (See Below) Other Female Surgeries/Procedures: rectocele & cystocele repair Endocrine Surgical History: Reports: Parathyroidectomy Neurological Surgical History: Reports: Spinal Fusion Musculoskeletal Surgical History: Reports: Hip Replacement, Knee Replacement Other Musculoskeletal Surgeries/Procedures:: L hip & R knee replacements Social & Family History - Family History Family Medical History: Noncontributory - Caffeine Use Caffeine Use: Reports: Coffee, Soda, Tea - Living Situation & Occupation Living situation: Reports: Occupation: Employed (Works at [employer]) ED ROS GENERAL - Review of Systems Review Of Systems: See Below Constitutional: Reports: No Symptoms HEENT: Reports: No Symptoms Respiratory: Reports: No Symptoms Cardiovascular: Reports: No Symptoms Endocrine: Reports: No Symptoms GI/Abdominal: Reports: No Symptoms : Reports: No Symptoms Musculoskeletal: Reports: No Symptoms Skin: Reports: Pruritis Neurological: Reports: No Symptoms Psychiatric: Reports: No Symptoms Hematologic/Lymphatic: Reports: No Symptoms Immunologic: Reports: No Symptoms ED EXAM, GENERAL - Physical Exam Exam: See Below Exam Limited By: Other (fixed on her belief that the thread is a f.b., wearing a hair net) General Appearance: Alert, WD/WN, Anxious Nose: Normal Inspection Throat/Mouth: Normal Inspection, Normal Lips, No Airway Compromise Neck: Normal Inspection, Supple, Non-Tender. No: Lymphadenopathy (R), Lymphadenopathy (L) Neurological: Alert, No Motor/Sensory Deficits Skin Exam: Other (hair intact, scalp intact and healthy, no nits appreciated, there are one or two small areas of 2-3 mm where the scalp has been scratched, no burrows, forearms have bruising and evidence of excoriation) Course - Vital Signs Last Recorded V/S: Last Vital Signs Temp 36.6 C 11/08/18 15:10 Pulse 82 11/08/18 15:10 Resp 20 11/08/18 15:10 BP 105/58 L 11/08/18 15:10 Pulse Ox 99 11/08/18 15:10 - Re-Assessments/Exams Free Text/Narrative Re-Assessment/Exam: 11/08/18 15:43 pt convinced that the piece of thread is a worm, yet under the microscope in the lab both the shrimp pond laborer Emelia and myself determined that this piece of thread dof ~0.5 mm diameter which was in turn composed of another 30 pieces or so of smaller thread all twisted into a helix, there was no biological material pt is firm in her believe that the shrimp pond laborer and myself are mistaken in our assessment CLINT Vasquez is talking to pt now pt requested the thread to take back home with her, it was mounded on a slide with a cover slip taped in place, it was placed in a plastic slide container with a cap for safe transportation and further review elsewhere if pt so desires 11/09/18 14:10 Free Text/Narrative Re-Assessment/Exam: 11/08/18 15:51 CLINT Vasquez and I reviewed the specimen under the microscope, Christina confirmed that it is a thread Christina stated that she had carefully examined the hair and scalp herself and found no nits or ectoparasite Christina has gone back to discuss this further with pt Departure - Departure Time of Disposition: 15:21 Disposition: Home, Self-Care 01 Condition: Good Clinical Impression: Dry skin dermatitis - Discharge Information *PRESCRIPTION DRUG MONITORING PROGRAM REVIEWED*: No *COPY OF PRESCRIPTION DRUG MONITORING REPORT IN PATIENT ABEL: No Instructions: Pruritus, Atopic Dermatitis Referrals: Kate Anthony DO [Primary Care Provider] - Forms: ED Department Discharge Additional Instructions: Your recent lab tests were negative for eosinophils, which are present when there are ectoparasites or worms present. The material that you removed from your hair and brought to the Emergency Department is not a living organism. It is a small thread. Both the labor operator and the physician examined it in the lab and were able to determine it was composed of smaller threads. You do have dry skin. To help with itching, use cool compresses and skin lotions several times a day. Avoid scratching the skin as this will make it itch more. See your doctor in the next several days for further evaluation and recommendations.
[2018-11-08 15:48] VITALS: BP 105/58; PULSE 82
== END 2018-11-08 16:05 | disposition home or self-care (01) ==
LOC: FB.ED 14:48
DX: L85.3 Xerosis cutis (principal); I25.2 Old myocardial infarction; J45.909 Unspecified asthma, uncomplicated; K21.9 Gastro-esophageal reflux disease without esophagitis; I12.9 Hypertensive chronic kidney disease with stage 1 through stage 4 chronic kidney disease, or unspecified chronic kidney disease; N18.3 Chronic kidney disease, stage 3 (moderate); F41.9 Anxiety disorder, unspecified; F32.9 Major depressive disorder, single episode, unspecified; E21.3 Hyperparathyroidism, unspecified; Z88.0 Allergy status to penicillin; Z91.048 Other nonmedicinal substance allergy status; Z88.8 Allergy status to other drugs, medicaments and biological substances; Z88.6 Allergy status to analgesic agent; Z88.5 Allergy status to narcotic agent; Z88.1 Allergy status to other antibiotic agents; Z91.040 Latex allergy status; Z79.899 Other long term (current) drug therapy; Z79.82 Long term (current) use of aspirin
CPT/HCPCS: 99284

== ENCOUNTER 2018-12-01 02:30 | Emergency (ER) | payer MEDICARE, BC ==
--- NOTE | 2018-12-01 02:46 | EDM.PDOC ---
ED HPI GENERAL MEDICAL PROBLEM - General Chief Complaint: Skin Complaint Stated Complaint: BURNING Time Seen by Provider: 12/01/18 02:40 Source of Information: Reports: Patient History Limitations: Reports: No Limitations - History of Present Illness INITIAL COMMENTS - FREE TEXT/NARRATIVE: Patient believes there are worms in her hair and "micro" bugs burrowing under her skin. She has had these symptoms since 09/2018. Patient was treated at [facility] ED on 11/08/18, lab analysis was not consistent with infestation. She has obtained no relief from Benadryl lotion. Her physician advised her that her symptoms are psychological and has prescribed Risperdal. Duration: Other (2 months) Location: Reports: Back, Upper Extremity, Left, Upper Extremity, Right, Other ( scalp) Severity: Mild Associated Symptoms: Reports: No Other Symptoms - Related Data Allergies Allergy/AdvReac Type Severity Reaction Status Date / Time Penicillins Allergy Severe Rash Verified 11/08/18 15:41 gabapentin [From Neurontin] Allergy Mild Nausea and Verified 11/08/18 15:41 Vomiting oxycodone HCl [From Percocet] Allergy Mild Rash Verified 11/08/18 15:41 adhesive Allergy Unknown UNKNOWN Verified 11/08/18 15:41 morphine Allergy Unknown UNKNOWN Verified 11/08/18 15:41 clindamycin HCl Allergy Rash Verified 11/08/18 15:41 [From Cleocin] clindamycin palmitate HCl Allergy Rash Verified 11/08/18 15:41 [From Cleocin] clindamycin phosphate Allergy Rash Verified 11/08/18 15:41 [From Cleocin] hydrocodone Allergy Rash Verified 11/08/18 15:41 Latex, Natural Rubber Allergy Itching Verified 11/08/18 15:41 telithromycin [From Ketek] Allergy Rash Verified 11/08/18 15:41 ELASTIC BANDAGE IN CLOTHING Allergy Mild Itching Uncoded 10/27/18 06:50 ELASTIC BANDAGES & ZINC Allergy Unknown UNKNOWN Uncoded 10/27/18 06:50 SULFATE Home Meds: Home Meds Furosemide [Lasix] 20 mg PO DAILY PRN 07/17/16 [History] Hydrochlorothiazide 25 mg PO BID 07/17/16 [History] Potassium Chloride 20 meq PO QID 07/17/16 [History] buPROPion HCl [Wellbutrin Xl] 300 mg PO DAILY 07/17/16 [History] Acetaminophen [Tylenol Arthritis] 650 mg PO Q8H PRN 11/09/16 [History] Calcium Carbonate/Vitamin D3 [Os-Joe 500+D] 1 tab PO TID 11/09/16 [History] Cetirizine [ZyrTEC] 10 mg PO DAILY PRN 11/09/16 [History] Multivitamin [Multivitamins] 1 tab PO DAILY 11/09/16 [History] Omeprazole 20 mg PO 11/09/16 [History] Ondansetron [Zofran Odt] 8 mg PO BID PRN 11/09/16 [History] Propylene Glycol/PEG 400/Pf [Systane 0.3-0.4% Eye Drop] 1 drop EYEBOTH Q4H PRN 11/09/16 [History] Synchromed Infusion Med 41 ml IMPLANT .CONT 11/09/16 [History] Venlafaxine [Effexor] 100 mg PO 1700 11/09/16 [History] clonazePAM [Klonopin] 0.5 mg PO BID PRN 11/09/16 [History] Aspirin 81 mg PO DAILY 09/27/18 [History] Calcitriol [Rocaltrol] 0.25 mcg PO DAILY 09/27/18 [History] Certolizumab Pegol [Cimzia] 200 mg SQ Q14D 09/27/18 [History] Cholestyramine/Sucrose [Cholestyramine] 4 gm PO DAILY 09/27/18 [History] Clopidogrel Bisulfate [Plavix] 75 mg PO DAILY 09/27/18 [History] Diclofenac Sodium [Voltaren] 4 gm TP QID PRN 09/27/18 [History] Estrogens, Conjugated [Premarin Vaginal Crm] 0.5 gm VAG BEDTIME 09/27/18 [ History] Folic Acid 1,200 mcg PO DAILY 09/27/18 [History] Isosorbide Mononitrate [Imdur] 30 mg PO DAILY 09/27/18 [History] Lactulose 20 gm PO BID PRN 09/27/18 [History] Melatonin 10 mg PO BEDTIME 09/27/18 [History] Metoprolol Succinate [Toprol XL] 12.5 mg PO DAILY 09/27/18 [History] Nitroglycerin [Nitrostat] 0.4 mg SL Q5M PRN 09/27/18 [History] Prochlorperazine Maleate [Compazine] 5 - 10 mg PO Q8H PRN 09/27/18 [History] SUMAtriptan [Imitrex Nasal] 1 spray MALACHI ASDIRECTED PRN 09/27/18 [History] SUMAtriptan [Imitrex] 25 mg PO ASDIRECTED 09/27/18 [History] Venlafaxine [Effexor] 150 mg PO DAILY 09/27/18 [History] atorvaSTATin [Lipitor] 40 mg PO DAILY 09/27/18 [History] buPROPion HCl [Wellbutrin Xl] 150 mg PO DAILY 09/27/18 [History] clonazePAM [Klonopin] 2 mg PO BEDTIME 09/27/18 [History] tiZANidine [Zanaflex] 2 mg PO BEDTIME PRN 09/27/18 [History] Triamcinolone Acetonide [Triamcinolone Acetonide 0.1% Crm] 1 applic TOP DAILY # 15 gm 12/01/18 [Rx] Past Medical History Cardiovascular History: Reports: CAD, Hypertension, [place], PTCA, Stents Respiratory History: Reports: Asthma Gastrointestinal History: Reports: Diverticulosis, GERD Genitourinary History: Reports: Renal Disease, Other (See Below) Other Genitourinary History: RENAL FAILURE STAGE III 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 DIET 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: Reports: Polycystic Ovaries, Other 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: Musculoskeletal History: Reports: Arthritis, Fracture, Fibromyalgia, Osteoarthritis, Other (See Below) Other Musculoskeletal History: ANKOLOSIS SPONDYLITIS AND OSTEOPENIA, hx fx L lower leg Neurological History: Reports: Concussion, Migraines Psychiatric History: Reports: Anxiety, Depression Endocrine/Metabolic History: Reports: Hyperparathyroidism, Obesity/BMI 30+, Osteopenia Hematologic History: Reports: Blood Transfusion(s) Immunologic History: Reports: Immunosuppression, Other (See Below) Other Immunologic History: states is immunosuppressed from ankalosing spondalosis Dermatologic History: Reports: Other (See Below) Other Dermatologic History: has mites - Infectious Disease History Infectious Disease History: Reports: Chicken Pox, Mumps - Past Surgical History Cardiovascular Surgical History: Reports: Coronary Artery Stent GI Surgical History: Reports: Bariatric Procedure, Cholecystectomy, Colonoscopy , EGD, Hernia, Abdominal, Other (See Below) Other GI Surgeries/Procedures: GASTRIC BYPASS Female Surgical History: Reports: Breast Biopsy, Hysterectomy, Oophorectomy, Other (See Below) Other Female Surgeries/Procedures: rectocele & cystocele repair Endocrine Surgical History: Reports: Parathyroidectomy Neurological Surgical History: Reports: Spinal Fusion Musculoskeletal Surgical History: Reports: Hip Replacement, Knee Replacement Other Musculoskeletal Surgeries/Procedures:: L hip & R knee replacements Social & Family History - Family History Family Medical History: Noncontributory - Caffeine Use Caffeine Use: Reports: Coffee, Soda, Tea - Living Situation & Occupation Living situation: Reports: Occupation: Employed (Works at [employer]) ED ROS GENERAL - Review of Systems Review Of Systems: ROS reveals no pertinent complaints other than HPI. ED EXAM, SKIN/RASH Exam: See Below Exam Limited By: No Limitations General Appearance: Alert, WD/WN, No Apparent Distress, Anxious Ears: Normal External Exam Nose: Normal Inspection Throat/Mouth: No Airway Compromise Head: Atraumatic, Normocephalic Neck: Full Range of Motion Respiratory/Chest: No Respiratory Distress Skin: Warm, Dry, Other (excoriations and bruising to bilateral upper arms and back. No insects noted.) Departure - Departure Time of Disposition: 02:49 Disposition: Home, Self-Care 01 Condition: Good Clinical Impression: Dermatitis - Discharge Information *PRESCRIPTION DRUG MONITORING PROGRAM REVIEWED*: No *COPY OF PRESCRIPTION DRUG MONITORING REPORT IN PATIENT ABEL: Not Applicable Prescriptions: Triamcinolone Acetonide [Triamcinolone Acetonide 0.1% Crm] 1 applic TOP DAILY # 15 gm Referrals: Dewayne Barrios MD [ED Physician] - Kate Anthony DO [Ordering Only Provider] - 2 Days Forms: ED Department Discharge Additional Instructions: Fill the prescription for Triamcinolone cream and apply as directed. Follow up with your primary physician for further care.
[2018-12-01 04:12] VITALS: BP 176/109; PULSE 108
== END 2018-12-01 02:55 | disposition home or self-care (01) ==
LOC: FB.ED 02:30
DX: L30.9 Dermatitis, unspecified (principal); I12.9 Hypertensive chronic kidney disease with stage 1 through stage 4 chronic kidney disease, or unspecified chronic kidney disease; N18.3 Chronic kidney disease, stage 3 (moderate); I25.2 Old myocardial infarction; I25.10 Atherosclerotic heart disease of native coronary artery without angina pectoris; J45.909 Unspecified asthma, uncomplicated; E66.9 Obesity, unspecified; F41.9 Anxiety disorder, unspecified; F32.9 Major depressive disorder, single episode, unspecified; E03.9 Hypothyroidism, unspecified; Z88.1 Allergy status to other antibiotic agents; Z91.040 Latex allergy status; Z88.5 Allergy status to narcotic agent; Z88.0 Allergy status to penicillin; Z88.8 Allergy status to other drugs, medicaments and biological substances; Z91.048 Other nonmedicinal substance allergy status; Z79.82 Long term (current) use of aspirin; Z68.30 Body mass index [BMI] 30.0-30.9, adult; Z95.5 Presence of coronary angioplasty implant and graft; Z79.899 Other long term (current) drug therapy; Z79.02 Long term (current) use of antithrombotics/antiplatelets
CPT/HCPCS: 99282

== ENCOUNTER 2019-03-08 18:15 | Emergency (ER) | payer MEDICARE, BC ==
[2019-03-08] MEDS ORDERED: Sodium Chloride 0.9% 10 ML Syringe FLUSH PRN (18:33)
[2019-03-08] MEDS ORDERED: Meclizine 25 MG Tab PO ONE (18:34)
[2019-03-08] MEDS ORDERED: Ketorolac 30 MG/ML SDV IVPUSH ONE (18:34)
[2019-03-08] MEDS ORDERED: Ondansetron 4 MG/2 ML SDV IVPUSH ONE (18:34)
[2019-03-08] MEDS ORDERED: Aspirin 81 MG Tab.Chew PO ONE (18:34)
--- NOTE | 2019-03-08 19:14 | EDM.PDOC ---
ED HPI GENERAL MEDICAL PROBLEM - General Stated Complaint: DIZZINESS,HEADACHE,CHEST PAIN Time Seen by Provider: 03/08/19 18:20 Source of Information: Reports: Patient History Limitations: Reports: No Limitations - History of Present Illness INITIAL COMMENTS - FREE TEXT/NARRATIVE: Patient presented to the ED because of multiple complaints after receiving reclast infusion today. She c/o headache,nausea,bone pain,aches all over her body. She was feeling well until she had the reclast. Generalized Pain Score (Numeric/FACES): 10 - Related Data Allergies Allergy/AdvReac Type Severity Reaction Status Date / Time Penicillins Allergy Severe Rash Verified 03/08/19 20:05 gabapentin [From Neurontin] Allergy Mild Nausea and Verified 03/08/19 20:05 Vomiting oxycodone HCl [From Percocet] Allergy Mild Rash Verified 03/08/19 20:05 adhesive Allergy Unknown UNKNOWN Verified 03/08/19 20:05 morphine Allergy Unknown UNKNOWN Verified 03/08/19 20:05 clindamycin HCl Allergy Rash Verified 03/08/19 20:05 [From Cleocin] clindamycin palmitate HCl Allergy Rash Verified 03/08/19 20:05 [From Cleocin] clindamycin phosphate Allergy Rash Verified 03/08/19 20:05 [From Cleocin] hydrocodone Allergy Rash Verified 03/08/19 20:05 Latex, Natural Rubber Allergy Itching Verified 03/08/19 20:05 telithromycin [From Ketek] Allergy Rash Verified 03/08/19 20:05 ELASTIC BANDAGE IN CLOTHING Allergy Mild Itching Uncoded 03/08/19 20:05 ELASTIC BANDAGES & ZINC Allergy Unknown UNKNOWN Uncoded 03/08/19 20:05 SULFATE Home Meds: Home Meds Furosemide [Lasix] 20 mg PO DAILY PRN 07/17/16 [History] Hydrochlorothiazide 25 mg PO BID 07/17/16 [History] Potassium Chloride 20 meq PO QID 07/17/16 [History] buPROPion HCl [Wellbutrin Xl] 300 mg PO DAILY 07/17/16 [History] Acetaminophen [Tylenol Arthritis] 650 mg PO Q8H PRN 11/09/16 [History] Calcium Carbonate/Vitamin D3 [Os-Joe 500+D] 1 tab PO TID 11/09/16 [History] Cetirizine [ZyrTEC] 10 mg PO DAILY PRN 11/09/16 [History] Multivitamin [Multivitamins] 1 tab PO DAILY 11/09/16 [History] Omeprazole 20 mg PO 11/09/16 [History] Ondansetron [Zofran Odt] 8 mg PO BID PRN 11/09/16 [History] Propylene Glycol/PEG 400/Pf [Systane 0.3-0.4% Eye Drop] 1 drop EYEBOTH Q4H PRN 11/09/16 [History] Synchromed Infusion Med 41 ml IMPLANT .CONT 11/09/16 [History] Venlafaxine [Effexor] 100 mg PO 1700 11/09/16 [History] clonazePAM [Klonopin] 0.5 mg PO BID PRN 11/09/16 [History] Aspirin 81 mg PO DAILY 09/27/18 [History] Certolizumab Pegol [Cimzia] 200 mg SQ Q14D 09/27/18 [History] Cholestyramine/Sucrose [Cholestyramine] 4 gm PO DAILY 09/27/18 [History] Clopidogrel Bisulfate [Plavix] 75 mg PO DAILY 09/27/18 [History] Diclofenac Sodium [Voltaren] 4 gm TP QID PRN 09/27/18 [History] Estrogens, Conjugated [Premarin Vaginal Crm] 0.5 gm VAG BEDTIME 09/27/18 [ History] Folic Acid 1,200 mcg PO DAILY 09/27/18 [History] Isosorbide Mononitrate [Imdur] 30 mg PO DAILY 09/27/18 [History] Lactulose 20 gm PO BID PRN 09/27/18 [History] Melatonin 10 mg PO BEDTIME 09/27/18 [History] Metoprolol Succinate [Toprol XL] 12.5 mg PO DAILY 09/27/18 [History] Nitroglycerin [Nitrostat] 0.4 mg SL Q5M PRN 09/27/18 [History] Prochlorperazine Maleate [Compazine] 5 - 10 mg PO Q8H PRN 09/27/18 [History] SUMAtriptan [Imitrex Nasal] 1 spray MALACHI ASDIRECTED PRN 09/27/18 [History] SUMAtriptan [Imitrex] 25 mg PO ASDIRECTED 09/27/18 [History] Venlafaxine [Effexor] 150 mg PO DAILY 09/27/18 [History] atorvaSTATin [Lipitor] 40 mg PO DAILY 09/27/18 [History] buPROPion HCl [Wellbutrin Xl] 150 mg PO DAILY 09/27/18 [History] calcitrioL [Rocaltrol] 0.25 mcg PO DAILY 09/27/18 [History] clonazePAM [Klonopin] 2 mg PO BEDTIME 09/27/18 [History] tiZANidine [Zanaflex] 2 mg PO BEDTIME PRN 09/27/18 [History] Triamcinolone Acetonide [Triamcinolone Acetonide 0.1% Crm] 1 applic TOP DAILY # 15 gm 12/01/18 [Rx] Past Medical History Cardiovascular History: Reports: CAD, Hypertension, [place], PTCA, Stents Respiratory History: Reports: Asthma Gastrointestinal History: Reports: Diverticulosis, GERD Genitourinary History: Reports: Renal Disease, Other (See Below) Other Genitourinary History: RENAL FAILURE STAGE III 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 DIET 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: Reports: Polycystic Ovaries, Other 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: Musculoskeletal History: Reports: Arthritis, Fracture, Fibromyalgia, Osteoarthritis, Other (See Below) Other Musculoskeletal History: ANKOLOSIS SPONDYLITIS AND OSTEOPENIA, hx fx L lower leg Neurological History: Reports: Concussion, Migraines Psychiatric History: Reports: Anxiety, Depression Endocrine/Metabolic History: Reports: Hyperparathyroidism, Obesity/BMI 30+, Osteopenia Hematologic History: Reports: Blood Transfusion(s) Immunologic History: Reports: Immunosuppression, Other (See Below) Other Immunologic History: states is immunosuppressed from ankalosing spondalosis Dermatologic History: Reports: Other (See Below) Other Dermatologic History: has mites - Infectious Disease History Infectious Disease History: Reports: Chicken Pox, Mumps - Past Surgical History Cardiovascular Surgical History: Reports: Coronary Artery Stent GI Surgical History: Reports: Bariatric Procedure, Cholecystectomy, Colonoscopy , EGD, Hernia, Abdominal, Other (See Below) Other GI Surgeries/Procedures: GASTRIC BYPASS Female Surgical History: Reports: Breast Biopsy, Hysterectomy, Oophorectomy, Other (See Below) Other Female Surgeries/Procedures: rectocele & cystocele repair Endocrine Surgical History: Reports: Parathyroidectomy Neurological Surgical History: Reports: Spinal Fusion Musculoskeletal Surgical History: Reports: Hip Replacement, Knee Replacement Other Musculoskeletal Surgeries/Procedures:: L hip & R knee replacements Social & Family History - Family History Family Medical History: Noncontributory - Caffeine Use Caffeine Use: Reports: Coffee, Soda, Tea - Living Situation & Occupation Living situation: Reports: Occupation: Employed (Works at [employer]) ED ROS GENERAL - Review of Systems Review Of Systems: See Below Constitutional: Reports: No Symptoms HEENT: Reports: No Symptoms Respiratory: Reports: No Symptoms Cardiovascular: Reports: Chest Pain Endocrine: Reports: No Symptoms GI/Abdominal: Reports: Nausea. Denies: Vomiting : Reports: No Symptoms Musculoskeletal: Reports: Muscle Stiffness Skin: Reports: No Symptoms Neurological: Reports: No Symptoms Psychiatric: Reports: No Symptoms ED EXAM, GENERAL - Physical Exam Exam: See Below Exam Limited By: No Limitations General Appearance: Alert, No Apparent Distress Ears: Normal External Exam, Normal Canal, Hearing Grossly Normal Nose: Normal Inspection, Normal Mucosa, No Blood Throat/Mouth: Normal Inspection, Normal Lips, Normal Teeth, Normal Gums, Normal Oropharynx Head: Atraumatic, Normocephalic Neck: Normal Inspection, Supple, Non-Tender, Full Range of Motion Respiratory/Chest: No Respiratory Distress, Lungs Clear Cardiovascular: Normal Peripheral Pulses, Regular Rate, Rhythm, No Edema, No Gallop GI/Abdominal: Normal Bowel Sounds, Soft, Non-Tender, No Organomegaly Psychiatric: Normal Affect, Normal Mood Skin Exam: Warm, Intact Course - Vital Signs Text/Narrative:: Labs/EKG/CXR was discussed with patient and her and verbalized full understanding EKG-NSR Trop-neg ASA 324 mg po x1 zofran 4 mg IV x1 toradol 30 mg IV x1 Last Recorded V/S: Last Vital Signs Temp 36.6 C 03/08/19 18:15 Pulse 91 03/08/19 19:31 Resp 18 03/08/19 19:31 BP 115/66 03/08/19 19:31 Pulse Ox 97 03/08/19 19:31 - Orders/Labs/Meds Orders: Active Orders 24 hr Category Date Time Status EKG Documentation Completion [RC] ASDIRECTED Care 03/08/19 18:33 Active Chest 1V Frontal [CR] Stat Exams 03/08/19 18:33 Taken Saline Lock Insert [OM.PC] Routine Oth 03/08/19 18:33 Ordered EKG 12 Lead [EK] Routine Ther 01/22/20 18:33 Ordered Labs: Laboratory Tests 03/08/19 03/08/19 03/08/19 Range/Units 18:46 18:46 18:46 WBC 5.5 (4.5-12.0) X10-3/uL RBC 3.89 (3.23-5.20) x10(6)uL Hgb 11.5 (11.5-15.5) g/dL Hct 34.7 (30.0-51.3) % MCV 89.1 (80-96) fL MCH 29.6 (27.7-33.6) pg MCHC 33.2 (32.2-35.4) g/dL RDW 13.7 (11.5-15.5) % Plt Count 207 (125-369) X10(3)uL MPV 7.8 (7.4-10.4) fL Neut % (Auto) 84.2 H (46-82) % Lymph % (Auto) 7.8 L (13-37) % [place] % (Auto) 5.0 (4-12) % Eos % (Auto) 2 (1.0-5.0) % Baso % (Auto) 1 (0-2) % Neut # (Auto) 4.6 (1.6-8.3) # Lymph # (Auto) 0.4 L (0.6-5.0) # [place] # (Auto) 0.3 (0.0-1.3) # Eos # (Auto) 0.1 (0.0-0.8) # Baso # (Auto) 0.1 (0.0-0.2) # Sodium 139 (135-145) mmol/L Potassium 4.3 (3.5-5.3) mmol/L Chloride 103 (100-110) mmol/L Carbon Dioxide 25 (21-32) mmol/L BUN 18 (7-18) mg/dL Creatinine 1.4 H (0.55-1.02) mg/dL Est Cr Clr Drug Dosing TNP Estimated GFR (MDRD) 38 L (>60) BUN/Creatinine Ratio 12.9 (9-20) Glucose 101 (80-116) mg/dL Calcium 8.6 (8.6-10.2) mg/dL Total Bilirubin 0.6 (0.1-1.3) mg/dL AST 25 D (5-25) IU/L ALT 25 D (12-36) U/L Alkaline Phosphatase 78 (56-112) IU/L Troponin I < 0.017 L (<0.017-0.056) ng/mL Total Protein 7.5 (6.0-8.0) g/dL Albumin 3.2 (3.2-4.6) g/dL Globulin 4.3 g/dL Albumin/Globulin Ratio 0.7 Meds: Medications Discontinued Medications Generic Name Dose Route Start Last Admin Trade Name Freq PRN Reason Stop Dose Admin Aspirin 324 mg 03/08/19 18:34 03/08/19 18:56 Aspirin PO 03/08/19 18:35 324 mg ONETIME ONE Administration Ketorolac Tromethamine 30 mg 03/08/19 18:34 03/08/19 18:55 Toradol IVPUSH 03/08/19 18:35 30 mg ONETIME ONE Administration Meclizine HCl 25 mg 03/08/19 18:34 03/08/19 18:56 Antivert PO 03/08/19 18:35 25 mg ONETIME ONE Administration Ondansetron HCl 4 mg 03/08/19 18:34 03/08/19 18:55 Zofran IVPUSH 03/08/19 18:35 4 mg ONETIME ONE Administration Sodium Chloride 10 ml 03/08/19 18:33 03/08/19 19:02 Saline Flush FLUSH 10 ml ASDIRECTED PRN Administration Keep Vein Open Departure - Departure Time of Disposition: 19:15 Disposition: Home, Self-Care 01 Condition: Good Clinical Impression: Medication adverse effect - Discharge Information Instructions: Zoledronic Acid injection (Paget's Disease, Osteoporosis) Referrals: PCP,Not In Area [Primary Care Provider] - Forms: ED Department Discharge Additional Instructions: please read the print out that I gave you about reclast increase oral fluids tylenol 1000 mg every 8 hours as needed for pain and body ache/headache zofran ODT 4 mg every 4 hours as needed for nausea follow up as needed Sepsis Event Note - Focused Exam Date Exam was Performed: 03/09/19 Time Exam was Performed: 07:46 - My Orders Last 24 Hours: My Active Orders 03/08/19 18:33 EKG Documentation Completion [RC] ASDIRECTED Chest 1V Frontal [CR] Stat Saline Lock Insert [OM.PC] Routine EKG 12 Lead [EK] Routine - Assessment/Plan Last 24 Hours: My Active Orders 03/08/19 18:33 EKG Documentation Completion [RC] ASDIRECTED Chest 1V Frontal [CR] Stat Saline Lock Insert [OM.PC] Routine EKG 12 Lead [EK] Routine
[2019-03-08 19:32] VITALS: BP 115/66; PULSE 91
--- NOTE | 2019-03-09 10:19 | CR ---
INDICATION: Chest pain. CHEST, 1 VIEW: AP upright portable view of the chest, 03/08/19, was compared with 11/09/16. Poor inspiration is noted emphasizing markings. The heart appeared normal in size and shape. The aorta is tortuous with calcification in the arch as previously. No consolidating pneumonia or effusion was seen. Evidence of exogenous obesity is noted. Punctate densities across the upper lungs - apices are compatible with an overlying garment. IMPRESSION: Fairly stable appearance of the chest. No definite acute process. MTDD
== END 2019-03-08 19:50 | disposition home or self-care (01) ==
LOC: FB.ED 18:15
DX: R51 Headache (principal); T50.995A Adverse effect of other drugs, medicaments and biological substances, initial encounter; I10 Essential (primary) hypertension; I25.10 Atherosclerotic heart disease of native coronary artery without angina pectoris; I25.2 Old myocardial infarction; J45.909 Unspecified asthma, uncomplicated; K21.9 Gastro-esophageal reflux disease without esophagitis; M19.90 Unspecified osteoarthritis, unspecified site; F41.9 Anxiety disorder, unspecified; F32.9 Major depressive disorder, single episode, unspecified; E66.9 Obesity, unspecified; E21.3 Hyperparathyroidism, unspecified; Z79.899 Other long term (current) drug therapy; Z79.82 Long term (current) use of aspirin; Z88.0 Allergy status to penicillin; Z88.5 Allergy status to narcotic agent; Z88.8 Allergy status to other drugs, medicaments and biological substances; Z91.040 Latex allergy status; Z91.048 Other nonmedicinal substance allergy status
CPT/HCPCS: 36415; 71045; 80053; 84484; 85025; 93005; 93010; 96374; 96375; 99284; 99284-25; A9270-GY; J1885; J2405

== ENCOUNTER 2019-04-20 14:34 | Emergency (ER) | payer MEDICARE, BC ==
[2019-04-20 15:46] VITALS: PULSE 75
--- NOTE | 2019-04-20 15:51 | EDM.PDOC ---
ED HPI GENERAL MEDICAL PROBLEM - General Chief Complaint: General Stated Complaint: SOB WEAK Time Seen by Provider: 04/20/19 15:00 Source of Information: Reports: Patient History Limitations: Reports: No Limitations - History of Present Illness INITIAL COMMENTS - FREE TEXT/NARRATIVE: Patient presented to the Ed because of feeling weak and dyspnea. She denies any recent cough and cold,fever,chills,or body malaise. there is no N/V/D. Right Jaw Pain Score (Numeric/FACES): 4 - Related Data Allergies Allergy/AdvReac Type Severity Reaction Status Date / Time Penicillins Allergy Severe Rash Verified 03/08/19 20:05 gabapentin [From Neurontin] Allergy Mild Nausea and Verified 03/08/19 20:05 Vomiting oxycodone HCl [From Percocet] Allergy Mild Rash Verified 03/08/19 20:05 adhesive Allergy Unknown UNKNOWN Verified 03/08/19 20:05 morphine Allergy Unknown UNKNOWN Verified 03/08/19 20:05 clindamycin HCl Allergy Rash Verified 03/08/19 20:05 [From Cleocin] clindamycin palmitate HCl Allergy Rash Verified 03/08/19 20:05 [From Cleocin] clindamycin phosphate Allergy Rash Verified 03/08/19 20:05 [From Cleocin] hydrocodone Allergy Rash Verified 03/08/19 20:05 Latex, Natural Rubber Allergy Itching Verified 03/08/19 20:05 telithromycin [From Ketek] Allergy Rash Verified 03/08/19 20:05 ELASTIC BANDAGE IN CLOTHING Allergy Mild Itching Uncoded 03/08/19 20:05 ELASTIC BANDAGES & ZINC Allergy Unknown UNKNOWN Uncoded 03/08/19 20:05 SULFATE Home Meds: Home Meds Furosemide [Lasix] 20 mg PO DAILY PRN 07/17/16 [History] Hydrochlorothiazide 25 mg PO BID 07/17/16 [History] Potassium Chloride 20 meq PO QID 07/17/16 [History] buPROPion HCl [Wellbutrin Xl] 300 mg PO DAILY 07/17/16 [History] Acetaminophen [Tylenol Arthritis] 650 mg PO Q8H PRN 11/09/16 [History] Calcium Carbonate/Vitamin D3 [Os-Joe 500+D] 1 tab PO TID 11/09/16 [History] Cetirizine [ZyrTEC] 10 mg PO DAILY PRN 11/09/16 [History] Multivitamin [Multivitamins] 1 tab PO DAILY 11/09/16 [History] Omeprazole 20 mg PO 11/09/16 [History] Ondansetron [Zofran Odt] 8 mg PO BID PRN 11/09/16 [History] Propylene Glycol/PEG 400/Pf [Systane 0.3-0.4% Eye Drop] 1 drop EYEBOTH Q4H PRN 11/09/16 [History] Synchromed Infusion Med 41 ml IMPLANT .CONT 11/09/16 [History] Venlafaxine [Effexor] 100 mg PO 1700 11/09/16 [History] clonazePAM [Klonopin] 0.5 mg PO BID PRN 11/09/16 [History] Aspirin 81 mg PO DAILY 09/27/18 [History] Certolizumab Pegol [Cimzia] 200 mg SQ Q14D 09/27/18 [History] Cholestyramine/Sucrose [Cholestyramine] 4 gm PO DAILY 09/27/18 [History] Clopidogrel Bisulfate [Plavix] 75 mg PO DAILY 09/27/18 [History] Diclofenac Sodium [Voltaren] 4 gm TP QID PRN 09/27/18 [History] Estrogens, Conjugated [Premarin Vaginal Crm] 0.5 gm VAG BEDTIME 09/27/18 [ History] Folic Acid 1,200 mcg PO DAILY 09/27/18 [History] Isosorbide Mononitrate [Imdur] 30 mg PO DAILY 09/27/18 [History] Lactulose 20 gm PO BID PRN 09/27/18 [History] Melatonin 10 mg PO BEDTIME 09/27/18 [History] Metoprolol Succinate [Toprol XL] 12.5 mg PO DAILY 09/27/18 [History] Nitroglycerin [Nitrostat] 0.4 mg SL Q5M PRN 09/27/18 [History] Prochlorperazine Maleate [Compazine] 5 - 10 mg PO Q8H PRN 09/27/18 [History] SUMAtriptan [Imitrex Nasal] 1 spray MALACHI ASDIRECTED PRN 09/27/18 [History] SUMAtriptan [Imitrex] 25 mg PO ASDIRECTED 09/27/18 [History] Venlafaxine [Effexor] 150 mg PO DAILY 09/27/18 [History] atorvaSTATin [Lipitor] 40 mg PO DAILY 09/27/18 [History] buPROPion HCl [Wellbutrin Xl] 150 mg PO DAILY 09/27/18 [History] calcitrioL [Rocaltrol] 0.25 mcg PO DAILY 09/27/18 [History] clonazePAM [Klonopin] 2 mg PO BEDTIME 09/27/18 [History] tiZANidine [Zanaflex] 2 mg PO BEDTIME PRN 09/27/18 [History] Triamcinolone Acetonide [Triamcinolone Acetonide 0.1% Crm] 1 applic TOP DAILY # 15 gm 12/01/18 [Rx] Past Medical History Cardiovascular History: Reports: CAD, Hypertension, CO, PTCA, Stents Respiratory History: Reports: Asthma Gastrointestinal History: Reports: Diverticulosis, GERD Genitourinary History: Reports: Renal Disease, Other (See Below) Other Genitourinary History: RENAL FAILURE STAGE III 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 DIET [employer]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: Polycystic Ovaries, Other [employer] History: Musculoskeletal History: Reports: Arthritis, Fracture, Fibromyalgia, Osteoarthritis, Other (See Below) Other Musculoskeletal History: ANKOLOSIS SPONDYLITIS AND OSTEOPENIA, hx fx L lower leg Neurological History: Reports: Concussion, Migraines Psychiatric History: Reports: Anxiety, Depression Endocrine/Metabolic History: Reports: Hyperparathyroidism, Obesity/BMI 30+, Osteopenia Hematologic History: Reports: Blood Transfusion(s) Immunologic History: Reports: Immunosuppression, Other (See Below) Other Immunologic History: states is immunosuppressed from ankalosing spondalosis Dermatologic History: Reports: Other (See Below) Other Dermatologic History: has mites - Infectious Disease History Infectious Disease History: Reports: Chicken Pox, Mumps - Past Surgical History Cardiovascular Surgical History: Reports: Coronary Artery Stent GI Surgical History: Reports: Bariatric Procedure, Cholecystectomy, Colonoscopy , EGD, Hernia, Abdominal, Other (See Below) Other GI Surgeries/Procedures: GASTRIC BYPASS Female Surgical History: Reports: Breast Biopsy, Hysterectomy, Oophorectomy, Other (See Below) Other Female Surgeries/Procedures: rectocele & cystocele repair Endocrine Surgical History: Reports: Parathyroidectomy Neurological Surgical History: Reports: Spinal Fusion Musculoskeletal Surgical History: Reports: Hip Replacement, Knee Replacement Other Musculoskeletal Surgeries/Procedures:: L hip & R knee replacements Social & Family History - Family History Family Medical History: Noncontributory - Tobacco Use Smoking Status *Q: Never Smoker - Caffeine Use Caffeine Use: Reports: Coffee, Soda - Recreational Drug Use Recreational Drug Use: No - Living Situation & Occupation Living situation: Reports: Occupation: Employed (Works at [employer]) ED ROS GENERAL - Review of Systems Review Of Systems: See Below Constitutional: Reports: Weakness HEENT: Reports: No Symptoms Respiratory: Reports: Cough Cardiovascular: Reports: No Symptoms Endocrine: Reports: No Symptoms GI/Abdominal: Reports: No Symptoms Musculoskeletal: Reports: No Symptoms Skin: Reports: No Symptoms Neurological: Reports: No Symptoms Psychiatric: Reports: No Symptoms Hematologic/Lymphatic: Reports: No Symptoms ED EXAM, GENERAL - Physical Exam Exam: See Below Exam Limited By: No Limitations General Appearance: Alert, No Apparent Distress Ears: Normal External Exam, Normal Canal Nose: Normal Inspection, Normal Mucosa, No Blood Throat/Mouth: Normal Inspection, Normal Lips Head: Atraumatic, Normocephalic Neck: Normal Inspection, Supple, Non-Tender Respiratory/Chest: No Respiratory Distress, Rhonchi Cardiovascular: Normal Peripheral Pulses, Regular Rate, Rhythm, No Edema GI/Abdominal: Normal Bowel Sounds, Soft, Non-Tender, No Organomegaly, No Distention Back Exam: Normal Inspection Course - Vital Signs Text/Narrative:: Labs/EKG/CXR was discussed with patient and verbalized full understanding Last Recorded V/S: Last Vital Signs Temp 36.4 C 04/20/19 14:50 Pulse 75 04/20/19 16:00 Resp 16 04/20/19 16:00 BP 95/61 04/20/19 16:00 Pulse Ox 98 04/20/19 16:00 - Orders/Labs/Meds Orders: Active Orders 24 hr Category Date Time Status EKG Documentation Completion [RC] ASDIRECTED Care 04/20/19 14:50 Active EKG 12 Lead [EK] Routine Ther 04/20/19 14:49 Ordered Labs: Laboratory Tests 04/20/19 04/20/19 04/20/19 Range/Units 15:00 15:00 15:00 WBC 6.1 (4.5-12.0) X10-3/uL RBC 3.93 (3.23-5.20) x10(6)uL Hgb 11.9 (11.5-15.5) g/dL Hct 34.9 (30.0-51.3) % MCV 88.9 (80-96) fL MCH 30.2 (27.7-33.6) pg MCHC 34.0 (32.2-35.4) g/dL RDW 13.5 (11.5-15.5) % Plt Count 230 (125-369) X10(3)uL MPV 8.0 (7.4-10.4) fL Neut % (Auto) 49.9 (46-82) % Lymph % (Auto) 38.8 H (13-37) % [place] % (Auto) 7.9 (4-12) % Eos % (Auto) 3 (1.0-5.0) % Baso % (Auto) 1 (0-2) % Neut # (Auto) 3.0 (1.6-8.3) # Lymph # (Auto) 2.4 (0.6-5.0) # [place] # (Auto) 0.5 (0.0-1.3) # Eos # (Auto) 0.2 (0.0-0.8) # Baso # (Auto) 0.0 (0.0-0.2) # Sodium 142 (135-145) mmol/L Potassium 3.8 (3.5-5.3) mmol/L Chloride 103 (100-110) mmol/L Carbon Dioxide 33 H (21-32) mmol/L BUN 21 H (7-18) mg/dL Creatinine 1.8 H (0.55-1.02) mg/dL Est Cr Clr Drug Dosing 23.57 mL/min Estimated GFR (MDRD) 29 L (>60) BUN/Creatinine Ratio 11.7 (9-20) Glucose 92 (80-116) mg/dL Calcium 8.6 (8.6-10.2) mg/dL Total Bilirubin 0.4 (0.1-1.3) mg/dL AST 27 H (5-25) IU/L ALT 24 (12-36) U/L Alkaline Phosphatase 75 (56-112) IU/L Troponin I 4.5 (4.0-60.3) pg/mL NT-Pro-B Natriuret Pep 126 H (<=125) pg/mL Total Protein 7.5 (6.0-8.0) g/dL Albumin 3.1 L (3.2-4.6) g/dL Globulin 4.4 g/dL Albumin/Globulin Ratio 0.7 TSH, Ultra Sensitive (0.36-3.74) IU/mL Urine Color (YELLOW) Urine Appearance (CLEAR) Urine pH (5.0-6.5) Ur Specific [place] (1.010-1.025) Urine Protein (NEGATIVE) mg/dL Urine Glucose (UA) (NORMAL) mg/dL Urine Ketones (NEGATIVE) mg/dL Urine Occult Blood (NEGATIVE) Urine Nitrite (NEGATIVE) Urine Bilirubin (NEGATIVE) Urine Urobilinogen (NEGATIVE) mg/dL Ur Leukocyte Esterase (NEGATIVE) Urine RBC (0-5) Urine WBC (0-5) Ur Squamous Epith Cells (NS,R,O) Urine Bacteria (NS) 04/20/19 04/20/19 Range/Units 15:00 15:28 WBC (4.5-12.0) X10-3/uL RBC (3.23-5.20) x10(6)uL Hgb (11.5-15.5) g/dL Hct (30.0-51.3) % MCV (80-96) fL MCH (27.7-33.6) pg MCHC (32.2-35.4) g/dL RDW (11.5-15.5) % Plt Count (125-369) X10(3)uL MPV (7.4-10.4) fL Neut % (Auto) (46-82) % Lymph % (Auto) (13-37) % [place] % (Auto) (4-12) % Eos % (Auto) (1.0-5.0) % Baso % (Auto) (0-2) % Neut # (Auto) (1.6-8.3) # Lymph # (Auto) (0.6-5.0) # [place] # (Auto) (0.0-1.3) # Eos # (Auto) (0.0-0.8) # Baso # (Auto) (0.0-0.2) # Sodium (135-145) mmol/L Potassium (3.5-5.3) mmol/L Chloride (100-110) mmol/L Carbon Dioxide (21-32) mmol/L BUN (7-18) mg/dL Creatinine (0.55-1.02) mg/dL Est Cr Clr Drug Dosing mL/min Estimated GFR (MDRD) (>60) BUN/Creatinine Ratio (9-20) Glucose (80-116) mg/dL Calcium (8.6-10.2) mg/dL Total Bilirubin (0.1-1.3) mg/dL AST (5-25) IU/L ALT (12-36) U/L Alkaline Phosphatase (56-112) IU/L Troponin I (4.0-60.3) pg/mL NT-Pro-B Natriuret Pep (<=125) pg/mL Total Protein (6.0-8.0) g/dL Albumin (3.2-4.6) g/dL Globulin g/dL Albumin/Globulin Ratio TSH, Ultra Sensitive 1.47 (0.36-3.74) IU/mL Urine Color Yellow (YELLOW) Urine Appearance Clear (CLEAR) Urine pH 5.0 (5.0-6.5) Ur Specific [place] 1.010 (1.010-1.025) Urine Protein Negative (NEGATIVE) mg/dL Urine Glucose (UA) Normal (NORMAL) mg/dL Urine Ketones Negative (NEGATIVE) mg/dL Urine Occult Blood Negative (NEGATIVE) Urine Nitrite Negative (NEGATIVE) Urine Bilirubin Negative (NEGATIVE) Urine Urobilinogen Normal (NEGATIVE) mg/dL Ur Leukocyte Esterase Negative (NEGATIVE) Urine RBC 0-5 (0-5) Urine WBC 0-5 (0-5) Ur Squamous Epith Cells Occasional (NS,R,O) Urine Bacteria Rare H (NS) Departure - Departure Time of Disposition: 15:50 Disposition: Home, Self-Care 01 Condition: Good Clinical Impression: Dehydration - Discharge Information Instructions: Dehydration, Adult, [id number] Referrals: PCP,None [Primary Care Provider] - Forms: ED Department Discharge Additional Instructions: Do not take your water pill for 3 days increase oral fluids follow up as needed Sepsis Event Note - Evaluation Sepsis Screening Result: No Definite Risk - Focused Exam Vital Signs: Vital Signs Temp Pulse Resp BP Pulse Ox 04/20/19 16:00 75 16 95/61 98 04/20/19 15:46 75 16 103/66 99 04/20/19 15:28 66 103/66 100 04/20/19 14:50 36.4 C 79 18 104/64 98 Date Exam was Performed: 04/20/19 Time Exam was Performed: 22:47 - My Orders Last 24 Hours: My Active Orders 04/20/19 14:49 EKG 12 Lead [EK] Routine 04/20/19 14:50 EKG Documentation Completion [RC] ASDIRECTED - Assessment/Plan Last 24 Hours: My Active Orders 04/20/19 14:49 EKG 12 Lead [EK] Routine 04/20/19 14:50 EKG Documentation Completion [RC] ASDIRECTED
[2019-04-20 16:25] VITALS: BP 95/61
--- NOTE | 2019-04-20 16:26 | CR ---
INDICATION: Dyspnea. CHEST, TWO VIEWS: PA and lateral views of the chest were obtained 04/20/19 and compared with 03/08/19 and 11/08/16. The left ventricle may be slightly enlarged. The aorta is moderately tortuous with calcification in the arch. Minimal dextroconcave scoliosis is noted at the lower middle thoracic spine. Overlying EKG leads are noted. Active infiltrate or effusion was not identified with markings similar to the previous examinations. No consolidating pneumonia or effusion was seen. However, there is bronchial cuffing at the lung bases, which may be on the basis of active peribronchial disease and should be correlated clinically. Additionally, there is an appearance suggesting hyperaeration, which could be on the basis of obstructive airway disease and should be correlated clinically also. MTDD
== END 2019-04-20 16:00 | disposition home or self-care (01) ==
LOC: FB.ED 14:34
DX: E86.0 Dehydration (principal); I25.10 Atherosclerotic heart disease of native coronary artery without angina pectoris; I25.2 Old myocardial infarction; J45.909 Unspecified asthma, uncomplicated; I12.9 Hypertensive chronic kidney disease with stage 1 through stage 4 chronic kidney disease, or unspecified chronic kidney disease; N18.3 Chronic kidney disease, stage 3 (moderate); F41.9 Anxiety disorder, unspecified; F32.9 Major depressive disorder, single episode, unspecified; E21.3 Hyperparathyroidism, unspecified; E66.9 Obesity, unspecified; K21.9 Gastro-esophageal reflux disease without esophagitis; Z88.0 Allergy status to penicillin; Z88.5 Allergy status to narcotic agent; Z88.8 Allergy status to other drugs, medicaments and biological substances; Z88.1 Allergy status to other antibiotic agents; Z91.040 Latex allergy status; Z91.048 Other nonmedicinal substance allergy status; Z79.899 Other long term (current) drug therapy; Z79.82 Long term (current) use of aspirin
CPT/HCPCS: 36415; 71046; 80053; 81001; 83880; 84443; 84484; 85025; 93005; 99283; 99285-25

== ENCOUNTER 2019-05-03 14:27 | Emergency (ER) | payer MEDICARE, BC ==
[2019-05-03] MEDS ORDERED: Sodium Chloride 0.9% 1,000 ML IV SCH (15:00)
[2019-05-03] MEDS ORDERED: Morphine 2 MG/ML Syringe IVPUSH ONE (15:09)
[2019-05-03] MEDS ORDERED: methylPREDNISolone Sodium Succinate 125 MG/2 ML SDV IVPUSH ONE (15:09)
--- NOTE | 2019-05-03 16:59 | EDM.PDOC ---
ED HPI GENERAL MEDICAL PROBLEM - General Chief Complaint: Chest Pain Stated Complaint: CHEST PAIN, WEAKNESS Time Seen by Provider: 05/03/19 14:35 Source of Information: Reports: Patient History Limitations: Reports: No Limitations - History of Present Illness INITIAL COMMENTS - FREE TEXT/NARRATIVE: Patient presented to the ED because of chest pain and weakness and pain on the right great toe. The chest pain is sharp4/10, there is no associated N/V or dyspnea. She also c/o pain over the right great toe most likely an acute attack of gout. She took steroids which helped with the pain. Middle Chest Pain Score (Numeric/FACES): 6 Right Toe-Long Pain Score (Numeric/FACES): 9 - Related Data Allergies Allergy/AdvReac Type Severity Reaction Status Date / Time Penicillins Allergy Severe Rash Verified 05/03/19 15:47 gabapentin [From Neurontin] Allergy Mild Nausea and Verified 05/03/19 15:47 Vomiting oxycodone HCl [From Percocet] Allergy Mild Rash Verified 05/03/19 15:47 adhesive Allergy Unknown UNKNOWN Verified 05/03/19 15:47 morphine Allergy Unknown UNKNOWN Verified 05/03/19 15:47 clindamycin HCl Allergy Rash Verified 05/03/19 15:47 [From Cleocin] clindamycin palmitate HCl Allergy Rash Verified 05/03/19 15:47 [From Cleocin] clindamycin phosphate Allergy Rash Verified 05/03/19 15:47 [From Cleocin] hydrocodone Allergy Rash Verified 05/03/19 15:47 Latex, Natural Rubber Allergy Itching Verified 05/03/19 15:47 telithromycin [From Ketek] Allergy Rash Verified 05/03/19 15:47 ELASTIC BANDAGE IN CLOTHING Allergy Mild Itching Uncoded 05/03/19 15:47 ELASTIC BANDAGES & ZINC Allergy Unknown UNKNOWN Uncoded 05/03/19 15:47 SULFATE Home Meds: Home Meds Furosemide [Lasix] 20 mg PO DAILY PRN 07/17/16 [History] Hydrochlorothiazide 25 mg PO BID 07/17/16 [History] Potassium Chloride 20 meq PO QID 07/17/16 [History] buPROPion HCl [Wellbutrin Xl] 300 mg PO DAILY 07/17/16 [History] Acetaminophen [Tylenol Arthritis] 650 mg PO Q8H PRN 11/09/16 [History] Calcium Carbonate/Vitamin D3 [Os-Joe 500+D] 1 tab PO TID 11/09/16 [History] Cetirizine [ZyrTEC] 10 mg PO DAILY PRN 11/09/16 [History] Multivitamin [Multivitamins] 1 tab PO DAILY 11/09/16 [History] Omeprazole 20 mg PO 08,11/09/16 [History] Ondansetron [Zofran Odt] 8 mg PO BID PRN 11/09/16 [History] Propylene Glycol/PEG 400/Pf [Systane 0.3-0.4% Eye Drop] 1 drop EYEBOTH Q4H PRN 11/09/16 [History] Synchromed Infusion Med 41 ml IMPLANT .CONT 11/09/16 [History] Venlafaxine [Effexor] 100 mg PO 1700 11/09/16 [History] clonazePAM [Klonopin] 0.5 mg PO BID PRN 11/09/16 [History] Aspirin 81 mg PO DAILY 09/27/18 [History] Certolizumab Pegol [Cimzia] 200 mg SQ Q14D 09/27/18 [History] Cholestyramine/Sucrose [Cholestyramine] 4 gm PO DAILY 09/27/18 [History] Clopidogrel Bisulfate [Plavix] 75 mg PO DAILY 09/27/18 [History] Diclofenac Sodium [Voltaren] 4 gm TP QID PRN 09/27/18 [History] Estrogens, Conjugated [Premarin Vaginal Crm] 0.5 gm VAG BEDTIME 09/27/18 [ History] Folic Acid 1,200 mcg PO DAILY 09/27/18 [History] Isosorbide Mononitrate [Imdur] 30 mg PO DAILY 09/27/18 [History] Lactulose 20 gm PO BID PRN 09/27/18 [History] Melatonin 10 mg PO BEDTIME 09/27/18 [History] Metoprolol Succinate [Toprol XL] 12.5 mg PO DAILY 09/27/18 [History] Nitroglycerin [Nitrostat] 0.4 mg SL Q5M PRN 09/27/18 [History] Prochlorperazine Maleate [Compazine] 5 - 10 mg PO Q8H PRN 09/27/18 [History] SUMAtriptan [Imitrex Nasal] 1 spray MALACHI ASDIRECTED PRN 09/27/18 [History] SUMAtriptan [Imitrex] 25 mg PO ASDIRECTED 09/27/18 [History] Venlafaxine [Effexor] 150 mg PO DAILY 09/27/18 [History] atorvaSTATin [Lipitor] 40 mg PO DAILY 09/27/18 [History] buPROPion HCl [Wellbutrin Xl] 150 mg PO DAILY 09/27/18 [History] calcitrioL [Rocaltrol] 0.25 mcg PO DAILY 09/27/18 [History] clonazePAM [Klonopin] 2 mg PO BEDTIME 09/27/18 [History] tiZANidine [Zanaflex] 2 mg PO BEDTIME PRN 09/27/18 [History] Triamcinolone Acetonide [Triamcinolone Acetonide 0.1% Crm] 1 applic TOP DAILY # 15 gm 12/01/18 [Rx] Past Medical History Cardiovascular History: Reports: CAD, Hypertension, [place], PTCA, Stents Respiratory History: Reports: Asthma Gastrointestinal History: Reports: Diverticulosis, GERD Genitourinary History: Reports: Renal Disease, Other (See Below) Other Genitourinary History: RENAL FAILURE STAGE III 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 DIET 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: Reports: Polycystic Ovaries, Other 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: Musculoskeletal History: Reports: Arthritis, Fracture, Fibromyalgia, Osteoarthritis, Other (See Below) Other Musculoskeletal History: ANKOLOSIS SPONDYLITIS AND OSTEOPENIA, hx fx L lower leg Neurological History: Reports: Concussion, Migraines Psychiatric History: Reports: Anxiety, Depression Endocrine/Metabolic History: Reports: Hyperparathyroidism, Obesity/BMI 30+, Osteopenia Hematologic History: Reports: Blood Transfusion(s) Immunologic History: Reports: Immunosuppression, Other (See Below) Other Immunologic History: states is immunosuppressed from ankylosing spondylosis Dermatologic History: Reports: Other (See Below) Other Dermatologic History: has mites - Infectious Disease History Infectious Disease History: Reports: Chicken Pox, Mumps - Past Surgical History Cardiovascular Surgical History: Reports: Coronary Artery Stent GI Surgical History: Reports: Bariatric Procedure, Cholecystectomy, Colonoscopy , EGD, Hernia, Abdominal, Other (See Below) Other GI Surgeries/Procedures: GASTRIC BYPASS, PANNICULECTOMY Female Surgical History: Reports: Breast Biopsy, Hysterectomy, Oophorectomy, Other (See Below) Other Female Surgeries/Procedures: rectocele & cystocele repair Endocrine Surgical History: Reports: Parathyroidectomy Neurological Surgical History: Reports: Spinal Fusion Musculoskeletal Surgical History: Reports: Hip Replacement, Knee Replacement Other Musculoskeletal Surgeries/Procedures:: L hip & R knee replacements, back surgeries Social & Family History - Family History Family Medical History: Noncontributory - Tobacco Use Smoking Status *Q: Never Smoker Second Hand Smoke Exposure: No - Caffeine Use Caffeine Use: Reports: Soda - Recreational Drug Use Recreational Drug Use: No - Living Situation & Occupation Living situation: Reports: Occupation: Employed (Works at [employer]) ED ROS GENERAL - Review of Systems Review Of Systems: See Below Constitutional: Reports: No Symptoms HEENT: Reports: No Symptoms Respiratory: Reports: No Symptoms Cardiovascular: Reports: Chest Pain Endocrine: Reports: No Symptoms GI/Abdominal: Reports: No Symptoms Musculoskeletal: Reports: No Symptoms, Neck Pain, Foot Pain Skin: Reports: No Symptoms Neurological: Reports: No Symptoms Psychiatric: Reports: No Symptoms Hematologic/Lymphatic: Reports: No Symptoms ED EXAM, GENERAL - Physical Exam Exam: See Below Exam Limited By: No Limitations General Appearance: Alert, No Apparent Distress Ears: Normal External Exam, Normal Canal, Hearing Grossly Normal Nose: Normal Inspection, Normal Mucosa Throat/Mouth: Normal Inspection, Normal Lips, Normal Teeth Head: Atraumatic, Normocephalic Neck: Normal Inspection, Supple, Non-Tender, Full Range of Motion Respiratory/Chest: No Respiratory Distress, Lungs Clear, Normal Breath Sounds Cardiovascular: Normal Peripheral Pulses, Regular Rate, Rhythm, No Edema GI/Abdominal: Normal Bowel Sounds, Soft, Non-Tender, No Organomegaly, No Distention, No Abnormal Bruit Back Exam: Normal Inspection Extremities: Normal Inspection, Other (tenderness and erythema right great toe.) Neurological: Alert, Oriented, CN II-XII Intact, Normal Cognition Course - Vital Signs Text/Narrative:: EKG/CXR/Labs was discussed with patient and verbalized full understanding EKG-NSR Trop-neg NS 1 L in 2 hours Last Recorded V/S: Last Vital Signs Temp 36.4 C 05/03/19 14:30 Pulse 68 05/03/19 14:30 Resp 16 05/03/19 14:30 BP 126/67 05/03/19 14:30 Pulse Ox 97 05/03/19 14:30 - Orders/Labs/Meds Orders: Active Orders 24 hr Category Date Time Status EKG Documentation Completion [RC] ASDIRECTED Care 05/03/19 14:32 Active Chest 1V Frontal [CR] Stat Exams 05/03/19 14:31 Taken Sodium Chloride 0.9% [Normal Saline] 1,000 ml Med 05/03/19 15:00 Active IV ASDIRECTED EKG 12 Lead [EK] Routine Ther 05/03/19 14:31 Ordered Medication Orders Sodium Chloride (Normal Saline) 1,000 mls @ 500 mls/hr IV ASDIRECTED CORNELIUS Last Admin: 05/03/19 15:19 Dose: 500 mls/hr Labs: Laboratory Tests 05/03/19 05/03/19 05/03/19 Range/Units 14:44 14:44 14:44 WBC 8.6 (4.5-12.0) X10-3/uL RBC 4.11 (3.23-5.20) x10(6)uL Hgb 12.3 (11.5-15.5) g/dL Hct 36.7 (30.0-51.3) % MCV 89.3 (80-96) fL MCH 29.9 (27.7-33.6) pg MCHC 33.5 (32.2-35.4) g/dL RDW 13.7 (11.5-15.5) % Plt Count 229 (125-369) X10(3)uL MPV 8.2 (7.4-10.4) fL Neut % (Auto) 47.1 (46-82) % Lymph % (Auto) 44.7 H (13-37) % [place] % (Auto) 7.1 (4-12) % Eos % (Auto) 1 (1.0-5.0) % Baso % (Auto) 1 (0-2) % Neut # (Auto) 4.1 (1.6-8.3) # Lymph # (Auto) 3.8 (0.6-5.0) # [place] # (Auto) 0.6 (0.0-1.3) # Eos # (Auto) 0.1 (0.0-0.8) # Baso # (Auto) 0.0 (0.0-0.2) # Sodium 144 (135-145) mmol/L Potassium 3.7 (3.5-5.3) mmol/L Chloride 103 (100-110) mmol/L Carbon Dioxide 34 H (21-32) mmol/L BUN 24 H (7-18) mg/dL Creatinine 1.7 H (0.55-1.02) mg/dL Est Cr Clr Drug Dosing TNP Estimated GFR (MDRD) 30 L (>60) BUN/Creatinine Ratio 14.1 (9-20) Glucose 100 (80-116) mg/dL Uric Acid (3.5-7.2) mg/dL Calcium 8.8 (8.6-10.2) mg/dL Total Bilirubin 0.3 (0.1-1.3) mg/dL AST 30 H D (5-25) IU/L ALT 38 H D (12-36) U/L Alkaline Phosphatase 64 (56-112) IU/L Troponin I 4.1 (4.0-60.3) pg/mL Total Protein 7.5 (6.0-8.0) g/dL Albumin 3.2 (3.2-4.6) g/dL Globulin 4.3 g/dL Albumin/Globulin Ratio 0.7 03/18/20 Range/Units 14:44 WBC (4.5-12.0) X10-3/uL RBC (3.23-5.20) x10(6)uL Hgb (11.5-15.5) g/dL Hct (30.0-51.3) % MCV (80-96) fL MCH (27.7-33.6) pg MCHC (32.2-35.4) g/dL RDW (11.5-15.5) % Plt Count (125-369) X10(3)uL MPV (7.4-10.4) fL Neut % (Auto) (46-82) % Lymph % (Auto) (13-37) % [place] % (Auto) (4-12) % Eos % (Auto) (1.0-5.0) % Baso % (Auto) (0-2) % Neut # (Auto) (1.6-8.3) # Lymph # (Auto) (0.6-5.0) # [place] # (Auto) (0.0-1.3) # Eos # (Auto) (0.0-0.8) # Baso # (Auto) (0.0-0.2) # Sodium (135-145) mmol/L Potassium (3.5-5.3) mmol/L Chloride (100-110) mmol/L Carbon Dioxide (21-32) mmol/L BUN (7-18) mg/dL Creatinine (0.55-1.02) mg/dL Est Cr Clr Drug Dosing Estimated GFR (MDRD) (>60) BUN/Creatinine Ratio (9-20) Glucose (80-116) mg/dL Uric Acid 5.4 (3.5-7.2) mg/dL Calcium (8.6-10.2) mg/dL Total Bilirubin (0.1-1.3) mg/dL AST (5-25) IU/L ALT (12-36) U/L Alkaline Phosphatase (56-112) IU/L Troponin I (4.0-60.3) pg/mL Total Protein (6.0-8.0) g/dL Albumin (3.2-4.6) g/dL Globulin g/dL Albumin/Globulin Ratio Meds: Medications Generic Name Dose Route Start Last Admin Trade Name Freq PRN Reason Stop Dose Admin Sodium Chloride 1,000 mls @ 500 mls/hr 05/03/19 15:00 05/03/19 15:19 Normal Saline IV 500 mls/hr ASDIRECTED CORNELIUS Administration Discontinued Medications Generic Name Dose Route Start Last Admin Trade Name Freq PRN Reason Stop Dose Admin Methylprednisolone Sodium Succinate 125 mg 05/03/19 15:09 05/03/19 15:19 Solu-Medrol IVPUSH 05/03/19 15:10 125 mg ONETIME ONE Administration Morphine Sulfate 2 mg 05/03/19 15:09 05/03/19 15:27 Morphine IVPUSH 05/03/19 15:10 2 mg ONETIME ONE Administration Departure - Departure Time of Disposition: 17:00 Disposition: Home, Self-Care 01 Condition: Good Clinical Impression: Dehydration, CKD (chronic kidney disease), Atypical chest pain Instructions: Dehydration, Adult, [id number], Rehydration, Adult, Nonspecific Chest Pain, Adult, [id number] Referrals: Kate Anthony DO [Primary Care Provider] - Forms: ED Department Discharge Additional Instructions: Please read discharge instructions on dehydration,Chronic Kidney dse and atypical chest pain increase oral fluids do not take your HCTZ until you see your Farm Contractor take your prednisone as prescribed by your primary physician follow up as needed Sepsis Event Note - Evaluation Sepsis Screening Result: No Definite Risk - Focused Exam Vital Signs: Vital Signs Temp Pulse Resp BP Pulse Ox 05/03/19 14:30 36.4 C 68 16 126/67 97 Date Exam was Performed: 05/03/19 Time Exam was Performed: 17:00 - My Orders Last 24 Hours: My Active Orders 05/03/19 14:31 Chest 1V Frontal [CR] Stat EKG 12 Lead [EK] Routine 05/03/19 14:32 EKG Documentation Completion [RC] ASDIRECTED 05/03/19 15:00 Sodium Chloride 0.9% [Normal Saline] 1,000 ml IV ASDIRECTED - Assessment/Plan Last 24 Hours: My Active Orders 05/03/19 14:31 Chest 1V Frontal [CR] Stat EKG 12 Lead [EK] Routine 05/03/19 14:32 EKG Documentation Completion [RC] ASDIRECTED 05/03/19 15:00 Sodium Chloride 0.9% [Normal Saline] 1,000 ml IV ASDIRECTED
[2019-05-03 19:48] VITALS: BP 133/66; PULSE 68
--- NOTE | 2019-05-04 11:56 | CR ---
INDICATION: Chest pain. CHEST, 1 VIEW: Portable AP upright view of the chest, 05/03/19, was compared with 04/20/19 and 03/08/19. There is evidence of exogenous obesity. Overlying EKG leads are noted. The heart did not appear enlarged. The aorta is tortuous with calcification in the arch. A definite active infiltrate or effusion was not identified. IMPRESSION: No acute process. MTDD
== END 2019-05-03 18:10 | disposition home or self-care (01) ==
LOC: FB.ED 14:27
DX: R07.89 Other chest pain (principal); E86.0 Dehydration; N18.9 Chronic kidney disease, unspecified; I25.10 Atherosclerotic heart disease of native coronary artery without angina pectoris; I10 Essential (primary) hypertension; I25.2 Old myocardial infarction; K21.9 Gastro-esophageal reflux disease without esophagitis; M19.90 Unspecified osteoarthritis, unspecified site; G43.909 Migraine, unspecified, not intractable, without status migrainosus; F41.9 Anxiety disorder, unspecified; F32.9 Major depressive disorder, single episode, unspecified; E66.9 Obesity, unspecified; Z79.899 Other long term (current) drug therapy; Z79.02 Long term (current) use of antithrombotics/antiplatelets; Z91.040 Latex allergy status; Z88.8 Allergy status to other drugs, medicaments and biological substances; Z88.1 Allergy status to other antibiotic agents; Z88.5 Allergy status to narcotic agent; Z68.37 Body mass index [BMI] 37.0-37.9, adult
CPT/HCPCS: 36415; 71045; 80053; 84484; 84550; 85025; 93005; 96361; 96374; 96375; 99285-25; J2270; J2930; J7030

== ENCOUNTER 2019-06-03 11:48 | Emergency (ER) | payer MEDICARE, BC, OTHER ==
--- NOTE | 2019-06-03 12:14 | EDM.PDOC ---
ED HPI GENERAL MEDICAL PROBLEM - General Chief Complaint: Respiratory Problem Stated Complaint: SOB Time Seen by Provider: 06/03/19 11:55 - History of Present Illness INITIAL COMMENTS - FREE TEXT/NARRATIVE: woke this am iwth pain in the right side of the chest and cough chest arenas gets worse with coughing non sob no fever or chills noted Onset: Today Duration: Hour(s): (6) - Related Data Allergies Allergy/AdvReac Type Severity Reaction Status Date / Time Penicillins Allergy Severe Rash Verified 06/03/19 12:40 gabapentin [From Neurontin] Allergy Mild Nausea and Verified 06/03/19 12:40 Vomiting oxycodone HCl [From Percocet] Allergy Mild Rash Verified 06/03/19 12:40 adhesive Allergy Unknown UNKNOWN Verified 06/03/19 12:40 morphine Allergy Unknown UNKNOWN Verified 06/03/19 12:40 clindamycin HCl Allergy Rash Verified 06/03/19 12:40 [From Cleocin] clindamycin palmitate HCl Allergy Rash Verified 06/03/19 12:40 [From Cleocin] clindamycin phosphate Allergy Rash Verified 06/03/19 12:40 [From Cleocin] hydrocodone Allergy Rash Verified 06/03/19 12:40 Latex, Natural Rubber Allergy Itching Verified 06/03/19 12:40 telithromycin [From Ketek] Allergy Rash Verified 06/03/19 12:40 ELASTIC BANDAGE IN CLOTHING Allergy Mild Itching Uncoded 05/03/19 15:47 ELASTIC BANDAGES & ZINC Allergy Unknown UNKNOWN Uncoded 05/03/19 15:47 SULFATE Home Meds: Home Meds Furosemide [Lasix] 20 mg PO DAILY PRN 07/17/16 [History] Hydrochlorothiazide 25 mg PO DAILY 07/17/16 [History] Potassium Chloride 20 meq PO BID 07/17/16 [History] Acetaminophen [Tylenol Arthritis] 650 mg PO Q8H PRN 11/09/16 [History] Calcium Carbonate/Vitamin D3 [Os-Joe 500+D] 1 tab PO BID 11/09/16 [History] Cetirizine [ZyrTEC] 10 mg PO DAILY PRN 11/09/16 [History] Multivitamin [Multivitamins] 1 tab PO DAILY 11/09/16 [History] Omeprazole 20 mg PO BID 11/09/16 [History] Ondansetron [Zofran Odt] 8 mg PO BID PRN 11/09/16 [History] Propylene Glycol/PEG 400/Pf [Systane 0.3-0.4% Eye Drop] 1 drop EYEBOTH Q4H PRN 11/09/16 [History] Synchromed Infusion Med 41 ml IMPLANT .CONT 11/09/16 [History] clonazePAM [Klonopin] 0.5 mg PO BID PRN 11/09/16 [History] Aspirin 81 mg PO DAILY 09/27/18 [History] Cholestyramine/Sucrose [Cholestyramine] 4 gm PO DAILY 09/27/18 [History] Clopidogrel Bisulfate [Plavix] 75 mg PO DAILY 09/27/18 [History] Diclofenac Sodium [Voltaren] 4 gm TP QID PRN 09/27/18 [History] Estrogens, Conjugated [Premarin Vaginal Crm] 0.5 gm VAG BEDTIME 09/27/18 [ History] Folic Acid 1,200 mcg PO DAILY 09/27/18 [History] Isosorbide Mononitrate [Imdur] 30 mg PO DAILY 09/27/18 [History] Lactulose 20 gm PO BID PRN 09/27/18 [History] Melatonin 10 mg PO BEDTIME 09/27/18 [History] Nitroglycerin [Nitrostat] 0.4 mg SL Q5M PRN 09/27/18 [History] Prochlorperazine Maleate [Compazine] 5 - 10 mg PO Q8H PRN 09/27/18 [History] SUMAtriptan [Imitrex Nasal] 1 spray MALACHI ASDIRECTED PRN 09/27/18 [History] SUMAtriptan [Imitrex] 25 mg PO ASDIRECTED 09/27/18 [History] atorvaSTATin [Lipitor] 40 mg PO DAILY 09/27/18 [History] calcitrioL [Rocaltrol] 0.25 mcg PO DAILY 09/27/18 [History] clonazePAM [Klonopin] 2 mg PO BEDTIME 09/27/18 [History] tiZANidine [Zanaflex] 2 mg PO BEDTIME PRN 09/27/18 [History] Triamcinolone Acetonide [Triamcinolone Acetonide 0.1% Crm] 1 applic TOP DAILY # 15 gm 12/01/18 [Rx] cephALEXin [Keflex] 500 mg PO Q8H #30 cap 06/03/19 [Rx] guaiFENesin [Mucinex] 600 mg PO BID #30 tab.er 06/03/19 [Rx] Past Medical History Cardiovascular History: Reports: CAD, Hypertension, DC, PTCA, Stents Respiratory History: Reports: Asthma Gastrointestinal History: Reports: Diverticulosis, GERD Genitourinary History: Reports: Renal Disease, Other (See Below) Other Genitourinary History: RENAL FAILURE STAGE III 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 DIET 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 History: Reports: Polycystic Ovaries, Other 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 History: Musculoskeletal History: Reports: Arthritis, Fracture, Fibromyalgia, Osteoarthritis, Other (See Below) Other Musculoskeletal History: ANKOLOSIS SPONDYLITIS AND OSTEOPENIA, hx fx L lower leg Neurological History: Reports: Concussion, Migraines Psychiatric History: Reports: Anxiety, Depression Endocrine/Metabolic History: Reports: Hyperparathyroidism, Obesity/BMI 30+, Osteopenia Hematologic History: Reports: Blood Transfusion(s) Immunologic History: Reports: Immunosuppression, Other (See Below) Other Immunologic History: states is immunosuppressed from ankylosing spondylosis Dermatologic History: Reports: Other (See Below) Other Dermatologic History: has mites - Infectious Disease History Infectious Disease History: Reports: Chicken Pox, Mumps - Past Surgical History Cardiovascular Surgical History: Reports: Coronary Artery Stent GI Surgical History: Reports: Bariatric Procedure, Cholecystectomy, Colonoscopy , EGD, Hernia, Abdominal, Other (See Below) Other GI Surgeries/Procedures: GASTRIC BYPASS, PANNICULECTOMY Female Surgical History: Reports: Breast Biopsy, Hysterectomy, Oophorectomy, Other (See Below) Other Female Surgeries/Procedures: rectocele & cystocele repair Endocrine Surgical History: Reports: Parathyroidectomy Neurological Surgical History: Reports: Spinal Fusion Musculoskeletal Surgical History: Reports: Hip Replacement, Knee Replacement Other Musculoskeletal Surgeries/Procedures:: L hip & R knee replacements, back surgeries Social & Family History - Family History Family Medical History: Noncontributory - Caffeine Use Caffeine Use: Reports: Soda - Living Situation & Occupation Living situation: Reports: Occupation: Employed (Works at [employer]) ED ROS GENERAL - Review of Systems Review Of Systems: See Below Constitutional: Reports: Malaise, Weakness, Fatigue. Denies: Fever, Chills, Night Sweats, Diaphoresis, Decreased Appetite HEENT: Reports: No Symptoms Respiratory: Reports: Cough, Sputum. Denies: Shortness of Breath, Wheezing, Pleuritic Chest Pain, Hemoptysis Cardiovascular: Reports: No Symptoms, Chest Pain. Denies: Edema, Lightheadedness, Orthopnea, Palpitations, PND, Syncope Endocrine: Reports: No Symptoms GI/Abdominal: Reports: No Symptoms : Reports: No Symptoms Musculoskeletal: Reports: Shoulder Pain, Back Pain (chronic) Skin: Reports: No Symptoms Neurological: Reports: No Symptoms Psychiatric: Reports: No Symptoms Hematologic/Lymphatic: Reports: No Symptoms Immunologic: Reports: No Symptoms ED EXAM, GENERAL - Physical Exam Exam: See Below Exam Limited By: No Limitations General Appearance: Alert, WD/WN, No Apparent Distress, Other (no signs of respiratory distress noted , pt very calm) Eye Exam: Bilateral Eye: EOMI Ears: Normal External Exam Nose: Normal Inspection Throat/Mouth: Normal Inspection Head: Atraumatic, Normocephalic Neck: Supple, Non-Tender Respiratory/Chest: No Respiratory Distress, Lungs Clear Cardiovascular: Regular Rate, Rhythm Back Exam: Full Range of Motion Extremities: Normal Range of Motion, Non-Tender Neurological: Alert, Oriented, Slow to Respond, Abnormal Reflexes Psychiatric: Flat Affect Skin Exam: Dry Lymphatic: No Adenopathy Course - Vital Signs Last Recorded V/S: Last Vital Signs Temp 36.9 C 06/03/19 11:52 Pulse 104 H 06/03/19 11:52 Resp 16 06/03/19 11:52 BP 114/76 06/03/19 11:52 Pulse Ox 97 06/03/19 11:52 - Orders/Labs/Meds Orders: Active Orders 24 hr Category Date Time Status EKG Documentation Completion [RC] ASDIRECTED Care 06/03/19 12:09 Active RT Aerosol Therapy [RC] ASDIRECTED Care 06/03/19 12:53 Active Chest 2V [CR] Stat Exams 06/03/19 12:10 Taken CORONAVIRUS COVID-19, ISIDORO Stat Lab 06/03/19 12:59 Ordered cephALEXin [Keflex] Med 06/03/19 13:35 Once 500 mg PO ONETIME ONE EKG 12 Lead [EK] Routine Ther 06/03/19 12:09 Ordered Labs: Laboratory Tests 06/03/19 06/03/19 06/03/19 Range/Units 12:24 12:24 12:24 WBC 6.9 (4.5-12.0) X10-3/uL RBC 4.45 (3.23-5.20) x10(6)uL Hgb 13.0 (11.5-15.5) g/dL Hct 39.4 (30.0-51.3) % MCV 88.6 (80-96) fL MCH 29.3 (27.7-33.6) pg MCHC 33.0 (32.2-35.4) g/dL RDW 13.2 (11.5-15.5) % Plt Count 239 (125-369) X10(3)uL MPV 8.1 (7.4-10.4) fL Neut % (Auto) 56.6 (46-82) % Lymph % (Auto) 32.3 (13-37) % [place] % (Auto) 8.6 (4-12) % Eos % (Auto) 2 (1.0-5.0) % Baso % (Auto) 1 (0-2) % Neut # (Auto) 4.0 (1.6-8.3) # Lymph # (Auto) 2.2 (0.6-5.0) # [place] # (Auto) 0.6 (0.0-1.3) # Eos # (Auto) 0.1 (0.0-0.8) # Baso # (Auto) 0.0 (0.0-0.2) # Sodium 144 (135-145) mmol/L Potassium 3.2 L (3.5-5.3) mmol/L Chloride 105 (100-110) mmol/L Carbon Dioxide 31 (21-32) mmol/L BUN 21 H (7-18) mg/dL Creatinine 1.6 H (0.55-1.02) mg/dL Est Cr Clr Drug Dosing TNP Estimated GFR (MDRD) 33 L (>60) BUN/Creatinine Ratio 13.1 (9-20) Glucose 62 L (80-116) mg/dL Calcium 8.7 (8.6-10.2) mg/dL Troponin I 5.4 (4.0-60.3) pg/mL NT-Pro-B Natriuret Pep (<=125) pg/mL 06/03/19 Range/Units 12:24 WBC (4.5-12.0) X10-3/uL RBC (3.23-5.20) x10(6)uL Hgb (11.5-15.5) g/dL Hct (30.0-51.3) % MCV (80-96) fL MCH (27.7-33.6) pg MCHC (32.2-35.4) g/dL RDW (11.5-15.5) % Plt Count (125-369) X10(3)uL MPV (7.4-10.4) fL Neut % (Auto) (46-82) % Lymph % (Auto) (13-37) % [place] % (Auto) (4-12) % Eos % (Auto) (1.0-5.0) % Baso % (Auto) (0-2) % Neut # (Auto) (1.6-8.3) # Lymph # (Auto) (0.6-5.0) # [place] # (Auto) (0.0-1.3) # Eos # (Auto) (0.0-0.8) # Baso # (Auto) (0.0-0.2) # Sodium (135-145) mmol/L Potassium (3.5-5.3) mmol/L Chloride (100-110) mmol/L Carbon Dioxide (21-32) mmol/L BUN (7-18) mg/dL Creatinine (0.55-1.02) mg/dL Est Cr Clr Drug Dosing Estimated GFR (MDRD) (>60) BUN/Creatinine Ratio (9-20) Glucose (80-116) mg/dL Calcium (8.6-10.2) mg/dL Troponin I (4.0-60.3) pg/mL NT-Pro-B Natriuret Pep 83 (<=125) pg/mL Meds: Medications Discontinued Medications Generic Name Dose Route Start Last Admin Trade Name Freq PRN Reason Stop Dose Admin Albuterol 2.5 mg 06/03/19 12:53 06/03/19 13:16 Proventil Neb Soln NEB 06/03/19 12:54 2.5 mg ONETIME ONE Administration Guaifenesin 600 mg 06/03/19 12:55 06/03/19 13:16 Mucinex PO 06/03/19 12:56 600 mg ONETIME ONE Administration Levofloxacin 500 mg 06/03/19 12:54 06/03/19 13:35 Levaquin PO 06/03/19 12:55 Not Given ONETIME ONE Potassium Chloride 40 meq 06/03/19 12:45 06/03/19 13:16 Klor-Con M20 PO 06/03/19 12:46 40 meq ONETIME ONE Administration Departure - Departure Time of Disposition: 13:55 Disposition: Home, Self-Care 01 Clinical Impression: Chest pain, Hypokalemia, Bronchitis, Cough - Discharge Information *PRESCRIPTION DRUG MONITORING PROGRAM REVIEWED*: Not Applicable *COPY OF PRESCRIPTION DRUG MONITORING REPORT IN PATIENT ABEL: Not Applicable Instructions: Nonspecific Chest Pain, Adult, [id number], Cough, Adult, Easy- to-Read, Acute Bronchitis, Adult, [id number] Referrals: Kate Anthony DO [Primary Care Provider] - Forms: ED Department Discharge Additional Instructions: 1) increase fluid intake 2) Continue with OTC cough medication 3) make telemedicine aapt to discuss any other symptoms with your PCP Sepsis Event Note - Evaluation Sepsis Screening Result: No Definite Risk - Focused Exam Vital Signs: Vital Signs Temp Pulse Resp BP Pulse Ox 06/03/19 11:52 36.9 C 104 H 16 114/76 97 Date Exam was Performed: 06/03/19 Time Exam was Performed: 13:36 - My Orders Last 24 Hours: My Active Orders 06/03/19 12:09 EKG Documentation Completion [RC] ASDIRECTED EKG 12 Lead [EK] Routine 06/03/19 12:10 Chest 2V [CR] Stat 06/03/19 12:53 RT Aerosol Therapy [RC] ASDIRECTED 06/03/19 12:59 CORONAVIRUS COVID-19, ISIDORO Stat 06/03/19 13:35 cephALEXin [Keflex] 500 mg PO ONETIME ONE - Assessment/Plan Last 24 Hours: My Active Orders 06/03/19 12:09 EKG Documentation Completion [RC] ASDIRECTED EKG 12 Lead [EK] Routine 06/03/19 12:10 Chest 2V [CR] Stat 06/03/19 12:53 RT Aerosol Therapy [RC] ASDIRECTED 06/03/19 12:59 CORONAVIRUS COVID-19, ISIDORO Stat 06/03/19 13:35 cephALEXin [Keflex] 500 mg PO ONETIME ONE
[2019-06-03] MEDS ORDERED: Potassium Chloride 20 MEQ Tab.ER PO ONE (12:45)
[2019-06-03] MEDS ORDERED: Albuterol 0.083% 2.5 MG/3 ML Neb Soln NEB ONE (12:53)
[2019-06-03] MEDS ORDERED: guaiFENesin 600 MG Tab.ER PO ONE (12:55)
[2019-06-03] MEDS: Levofloxacin 500 MG Tab PO ONE ×2 (13:16→13:35)
[2019-06-03] MEDS ORDERED: Cephalexin 500 MG Cap PO ONE (13:35)
[2019-06-03 14:14] VITALS: BP 122/65; PULSE 89
--- NOTE | 2019-06-05 10:16 | CR ---
INDICATION: Cough, chest pain. CHEST, TWO VIEWS: PA and lateral views of the chest were obtained 06/03/19, compared with 05/03/19 and 04/20/19. The aorta is mildly tortuous with calcification in the arch. The heart is normal in size and shape. A dextroconcave scoliosis of the lower thoracic spine is moderate in degree with suggestion of rotatory component. No consolidating pneumonia or effusion was seen. However, markings are slightly heavy posteriorly with slight blunting of the right posterior sulcus suggested raising question of a very minimal pneumonia and pleuritis in that area. This should be correlated clinically. It may simply be on the basis of fibrosis. MTDD
== END 2019-06-03 13:50 | disposition home or self-care (01) ==
LOC: FB.ED 11:48
DX: J40 Bronchitis, not specified as acute or chronic (principal); E87.6 Hypokalemia; K21.9 Gastro-esophageal reflux disease without esophagitis; I25.10 Atherosclerotic heart disease of native coronary artery without angina pectoris; I25.2 Old myocardial infarction; I12.9 Hypertensive chronic kidney disease with stage 1 through stage 4 chronic kidney disease, or unspecified chronic kidney disease; N18.3 Chronic kidney disease, stage 3 (moderate); M19.90 Unspecified osteoarthritis, unspecified site; G43.909 Migraine, unspecified, not intractable, without status migrainosus; F41.9 Anxiety disorder, unspecified; F32.9 Major depressive disorder, single episode, unspecified; Z79.82 Long term (current) use of aspirin; Z79.02 Long term (current) use of antithrombotics/antiplatelets; Z88.0 Allergy status to penicillin; Z88.5 Allergy status to narcotic agent; Z91.09 Other allergy status, other than to drugs and biological substances; Z88.1 Allergy status to other antibiotic agents; Z91.040 Latex allergy status; Z95.5 Presence of coronary angioplasty implant and graft
CPT/HCPCS: 36415; 71046; 80048; 83880; 84484; 85025; 93005; 94640; 99284; 99285-25; A9270-GY; U0002

== ENCOUNTER 2019-12-24 16:20 | Observation (INO) | payer MEDICARE ==
[2019-12-24] MEDS ORDERED: Sodium Chloride 0.9% 10 ML Syringe FLUSH PRN (16:34)
[2019-12-24] MEDS ORDERED: Prochlorperazine 5 MG Tab PO PRN (16:42)
[2019-12-24] MEDS ORDERED: ClonazePAM 0.5 MG Tab PO PRN (16:42)
[2019-12-24] MEDS ORDERED: Nitroglycerin 0.4 MG Tab.SL SL PRN (16:42)
[2019-12-24] MEDS ORDERED: Diclofenac Sodium 1% Gel 100 GM Tube TOP PRN (16:42)
[2019-12-24] MEDS ORDERED: Acetaminophen 650 MG Tab.ER PO PRN (16:42)
[2019-12-24] MEDS ORDERED: [UNRECOGNIZED DRUG - OTHER] IMPLANT SCH (16:45)
[2019-12-24] MEDS: Sodium Chloride 0.9% 1,000 ML IV SCH (17:35)
[2019-12-24] MEDS ORDERED: Enoxaparin 30 MG/0.3 ML Syringe SUBCUT SCH (18:30)
[2019-12-24] MEDS: Potassium Chloride 20 MEQ Tab.ER *PTOM PO SCH (20:48)
[2019-12-24] MEDS ORDERED: ClonazePAM 1 MG Tab PO SCH (21:00)
[2019-12-25] MEDS: Sodium Chloride 0.9% 1,000 ML IV SCH ×2 (01:16→08:30)
--- NOTE | 2019-12-25 06:59 | HP ---
ADMISSION DATE: 12/24/2019 CHIEF COMPLAINT: Weakness. HISTORY OF PRESENT ILLNESS: Samina is a 64-year-old woman from [place], [place], with a history of a non-STEMI in 2018. She had angioplasty and stent placement at that time. She is also many years status post gastric bypass procedure, hypertension, stage 3 kidney disease, type 2 diabetes, and a history of kidney stones. According to the patient, she has been getting weaker over the past couple of weeks. She states she has had diarrhea, nausea, poor oral intake, mild cough and chest pressure. She was told by her weed control inspector to try nitroglycerin, which made perhaps a little bit of improvement, but not convincing. For this reason, she was seen in the walk-in Clinic today by Stephy Patiño and was sent over for admission. Samina states that she has not been able to do any of her usual household activities, etc., for the past couple of weeks and she has had diarrhea up until today, so far she has only had 1 stool. PAST MEDICAL HISTORY: Non-STEMI with angioplasty and stent placements in 2018. She is status post left total hip arthroplasty, right total knee arthroplasty. She has chronic essential hypertension, type 2 diabetes, chronic kidney disease stage 3, hyperlipidemia, depression, general anxiety disorder, a history of kidney stones, and gastric bypass approximately 20 years ago. She has also had cholecystectomy, abdominal herniorrhaphy, panniculectomy. She is G4, para 3. She has had hysterectomy with oophorectomy, parathyroidectomy, cystocele and rectocele repair, and low back surgery. She gives a history of ankylosing spondylitis. MEDICATIONS: 1. Abilify 15 mg daily. 2. Atorvastatin 40 mg daily. 3. Clonazepam 2 mg at bedtime, 0.5 mg a.m. p.r.n. 4. Furosemide 20 mg daily. 5. Voltaren gel 4 g daily p.r.n. 6. Omeprazole 20 mg daily. 7. Cosentyx 300 mg IM monthly. 8. Urocit-K 10 one tablet t.i.d. 9. Cymbalta 120 mg daily. 10.Mag-Ox 400 one daily. 11.Hydroxyzine 50 mg daily p.r.n. and 1 at bedtime. 12.Cephalexin 250 mg daily for UTI prophylaxis. 13.Allopurinol 300 mg daily. 14.Hydrochlorothiazide 25 mg daily. 15.Cholestyramine 4 g daily. 16.Calcitriol 0.25 mcg daily. 17.Myrbetriq 25 mg daily. 18.Imdur 30 one daily. 19.Premarin cream vaginally p.r.n. 20.Toprol-XL 25 one-half tablet daily. 21.Xiidra ophthalmic drops 1 drop OU b.i.d. 22.Restasis 1 drop OU b.i.d. 23.Plavix 75 mg daily. 24.Tizanidine 2 mg t.i.d. p.r.n. 25.Aspirin 81 mg daily. 26.Folic acid 400 mcg 3 tablets daily. 27. Vites 1 daily. 28.Imitrex 25 mg daily p.r.n. migraine. 29.Kenalog cream b.i.d. p.r.n. rash. ALLERGIES: Penicillin caused hives. OxyContin caused anaphylaxis. Clindamycin caused rash. Telithromycin caused rash. Tegaderm caused skin blisters. Cleocin caused rash. Elastic bandages caused rash. Latex causes rash. Gabapentin caused nausea. Oxycodone caused rash. HABITS: Nonsmoker, quit in 2003. No alcohol. No other drugs. FAMILY AND SOCIAL HISTORY: CONTINUATION: FAMILY MEDICAL HISTORY: Patient's sister has ankylosing spondylitis. Mother has arthritis, obesity, thyroid disease, and depression. Father had anxiety, dementia, alcoholism. Brother had bipolar. Son has bipolar disorder, and a brother had heart disease. FAMILY AND SOCIAL HISTORY: The patient is and lives with her in [place]. Also listed as next of kin is Miihr Love, in [place]. REVIEW OF SYSTEMS: GENERAL: No seizure, syncope, or recent significant weight change. SKIN: Negative for rash, although she did fall and received a large bruise on her left buttock and on her left flank. HEENT: No recent changes in hearing or vision. She has not lost her sense of taste or smell. No sore throat or URI. Minimal cough that is nonproductive. No specific dyspnea. No chest pain or palpitation. She did have an episode of chest pressure that was questionably helped with the nitroglycerin. No nausea or vomiting. She has had a poor appetite, however, has only had juice and crackers this morning and she is hungry for supper now, however. She reports diarrhea with multiple stools per day, but only one today so far. No hematochezia or melena. No hematuria or UTI symptoms. No joint inflammation or swelling. PHYSICAL EXAMINATION: GENERAL: She is alert and currently comfortable. SKIN: Shows a large ecchymosis over left buttock and a large ecchymosis over her left lateral flank. No other rash is noted. HEENT: Not examined with the mask in place. LUNGS: Clear to the bases. HEART: Regular without murmur, rub, or gallop. ABDOMEN: Normal bowel sounds. Soft. She did report slight tenderness in the epigastric and left upper quadrant areas. She has a well-healed midline surgical scar. No organomegaly. EXTREMITIES: Warm, well perfused. Excellent pulses. No edema. NEUROLOGIC: Motor exam appears symmetric. Mental status appears intact. Station, gait not tested. LABORATORY DATA: Rapid COVID test was negative. White count 6200, hemoglobin 12.4, potassium 3.2, BUN 18, creatinine 1.6. CRP 0.4. ProBNP 127. Lactic acid 1.1. Urinalysis is negative. ASSESSMENT: 1. A 64-year-old woman with multiple medical problems, now with increasing weakness, diarrhea, lethargy over the past 2 weeks, slowly worsening. Negative rapid test for COVID, but this still is a potential diagnosis. 2. Arteriosclerotic heart disease with history of myocardial infarction, angioplasty and stents. 3. Hypokalemia. 4. Obesity, status post gastric bypass. 5. Chronic kidney disease, stage 3. 6. Anxiety and depression. 7. Ankylosing spondylitis with Cosentyx immunosuppression. PLAN: She is admitted to the hospital. We will do a PCR COVID test, give her IV fluids, minimize her oral medications at this time. Anticipate a 48 to 72 hour hospitalization with plans to return home when she is strong enough. /[id number] 2019 ISAAC/MARILYN
[2019-12-25] MEDS ORDERED: Calcitriol 0.25 MCG Cap *PTOM PO SCH (09:00)
[2019-12-25] MEDS ORDERED: Isosorbide Mononitrate 30 MG Tab.ER *PTOM PO SCH (09:00)
[2019-12-25] MEDS ORDERED: Clopidogrel 75 MG Tab *PTOM PO SCH (09:00)
[2019-12-25] MEDS: Potassium Chloride 20 MEQ Tab.ER *PTOM PO SCH (09:46)
[2019-12-25 11:33] VITALS: BP 120/74; PULSE 76
[2019-12-25] MEDS ORDERED: Cefdinir 300 MG Cap PO SCH (12:00)
--- NOTE | 2019-12-25 14:34 | DISCH ---
DISCHARGE DATE: 12/25/2019 SUMMARY: Samina is a 64-year-old woman with extensive medication use and multiple medical problems, who was seen in the walk-in clinic on the day of admission because of weakness. She had reported several many days of diarrhea, mild cough, generalized aches and weakness. On admission, laboratory data was done and COVID test was negative. Urinalysis, however, showed a significant pyuria and hematuria. The patient was treated with IV fluids. Her home medications were continued and she was given 1 dose of gentamicin 120 mg IV followed by cefdinir 250 mg b.i.d. x5 days for urinary tract infection. By the afternoon of 12/25/2019, she was strong enough for discharge. She is sent home in stable condition to continue medications as follows: 1. Triamcinolone cream daily p.r.n. 2. Tizanidine 4 mg half tablet at bedtime p.r.n. 3. Sumatriptan nasal spray p.r.n. 4. Systane eye drops p.r.n. 5. Potassium 20 mEq daily. 6. MiraLAX 17 g daily. 7. vitamin 1 daily. 8. Mirabegron 25 mg daily. 9. Metoprolol succinate 25 mg half tablet daily. 10.Mag-Ox 400 mg daily. 11.Lactulose 20 mg b.i.d. p.r.n. constipation. 12.Hydroxyzine 50 mg at bedtime. 13.Furosemide 20 mg daily. 14.Folic acid 0.8 mg daily. 15.Premarin vaginal cream daily p.r.n. 16.Cymbalta 120 mg daily. 17.Benadryl 25 mg b.i.d. p.r.n. 18.Cholestyramine 4 g daily. 19.Zyrtec 10 mg daily p.r.n. allergies. 20.Cephalexin 250 mg daily for UTI prophylaxis. 21.Cefdinir 300 mg b.i.d. x5 days. 22.Calcium citrate one tablet daily. 23.Calcitriol 0.25 mcg daily. 24.Atorvastatin 40 mg daily. 25.Aspirin 81 mg daily. 26.Abilify 15 mg daily. 27.Allopurinol 300 mg daily. 28.Compazine 5 to 10 mg every 8 hours p.r.n. 29.Nitroglycerin sublingual p.r.n. 30.Melatonin 10 mg at bedtime. 31.Isosorbide mononitrate 30 mg daily. 32.Diclofenac gel topically daily. 33.Plavix 75 mg daily. 34.Clonazepam 2 mg at bedtime. 35.Tylenol p.r.n. She is to follow up with Dr. Townsend in 2 weeks and call should there be questions or problems prior to that time. /[id number] ISAAC/GARIMAL
[2019-12-25] MEDS ORDERED: Cholestyramine/Sucrose Powder 4 GM Packet PO SCH (18:00)
== END 2019-12-25 15:15 | disposition home or self-care (01) ==
LOC: INTOOBSV 16:20 → FB.MS 16:20 → OBSVTOIN 16:20
PROVIDERS: ADMIT Family Medicine; ATTEND Family Medicine
DX: R53.1 Weakness (principal); R19.7 Diarrhea, unspecified; I25.2 Old myocardial infarction; I12.9 Hypertensive chronic kidney disease with stage 1 through stage 4 chronic kidney disease, or unspecified chronic kidney disease; E11.22 Type 2 diabetes mellitus with diabetic chronic kidney disease; N18.30 Chronic kidney disease, stage 3 unspecified; E78.5 Hyperlipidemia, unspecified; F41.1 Generalized anxiety disorder; F32.9 Major depressive disorder, single episode, unspecified; I25.10 Atherosclerotic heart disease of native coronary artery without angina pectoris; E87.6 Hypokalemia; E66.9 Obesity, unspecified; M45.9 Ankylosing spondylitis of unspecified sites in spine; Z95.5 Presence of coronary angioplasty implant and graft; Z79.899 Other long term (current) drug therapy; Z98.890 Other specified postprocedural states; Z79.82 Long term (current) use of aspirin; Z79.02 Long term (current) use of antithrombotics/antiplatelets; Z88.0 Allergy status to penicillin; Z88.1 Allergy status to other antibiotic agents; Z88.8 Allergy status to other drugs, medicaments and biological substances; Z91.040 Latex allergy status; Z87.891 Personal history of nicotine dependence; Z20.828 Contact with and (suspected) exposure to other viral communicable diseases
CPT/HCPCS: 36415; 80053; 81001; 82728; 85025; 85384; 85610; 85730; 87086; 87088; 87186; 96365; A9270; G0378; J1580; J1650; J7030; Q0164; 96361; 99217; 99220

== ENCOUNTER 2020-12-30 15:30 | Emergency (ER) | payer MEDICARE ==
[2020-12-30] MEDS ORDERED: Sodium Chloride 0.9% 10 ML Syringe FLUSH PRN (16:05)
[2020-12-30] MEDS: Sodium Chloride 0.9% 1,000 ML IV SCH ×2 (16:17→17:19)
[2020-12-30] MEDS ORDERED: Ketorolac 30 MG/ML SDV IVPUSH ONE (16:58)
[2020-12-30] MEDS ORDERED: Atropine/Diphenoxylate 0.025-2.5 MG Tab PO STA (16:59)
[2020-12-30] MEDS ORDERED: Sodium Chloride 0.9% 1,000 ML IV SCH (17:00)
[2020-12-30] MEDS ORDERED: 50% Dextrose in Water 50 ML Syringe IVPUSH ONE (17:31)
[2020-12-30] MEDS ORDERED: Ciprofloxacin in D5W 400 MG in Premix Bag 1 BAG IV STA ×2 (17:44)
[2020-12-30] MEDS ORDERED: Azithromycin 500 MG in Sodium Chloride 0.9% 250 ML IV STA (17:44)
--- NOTE | 2020-12-30 18:09 | EDM.PDOC ---
ED HPI GENERAL MEDICAL PROBLEM - General Chief Complaint: General Stated Complaint: Salmonella Time Seen by Provider: 12/30/20 15:45 Source of Information: Reports: Patient History Limitations: Reports: No Limitations - History of Present Illness INITIAL COMMENTS - FREE TEXT/NARRATIVE: Patient presented to the ED because of diarrhea and weakness. 12/19-watery stools with cramping abd pain and chills but no fever 12/22-diagnosed with Salmonella on stool exam/culture 12/25-started to feel weak - Related Data Allergies Allergy/AdvReac Type Severity Reaction Status Date / Time Penicillins Allergy Severe Rash Verified 06/03/19 12:40 gabapentin [From Neurontin] Allergy Mild Nausea and Verified 06/03/19 12:40 Vomiting oxycodone HCl [From Percocet] Allergy Mild Rash Verified 06/03/19 12:40 adhesive Allergy Unknown UNKNOWN Verified 06/03/19 12:40 morphine Allergy Unknown UNKNOWN Verified 06/03/19 12:40 clindamycin HCl Allergy Rash Verified 06/03/19 12:40 [From Cleocin] clindamycin palmitate HCl Allergy Rash Verified 06/03/19 12:40 [From Cleocin] clindamycin phosphate Allergy Rash Verified 06/03/19 12:40 [From Cleocin] hydrocodone Allergy Rash Verified 06/03/19 12:40 Latex, Natural Rubber Allergy Itching Verified 06/03/19 12:40 telithromycin [From Ketek] Allergy Rash Verified 06/03/19 12:40 ELASTIC BANDAGE IN CLOTHING Allergy Mild Itching Uncoded 05/03/19 15:47 ELASTIC BANDAGES & ZINC Allergy Unknown UNKNOWN Uncoded 05/03/19 15:47 SULFATE Home Meds: Home Meds Furosemide [Lasix] 20 mg PO DAILY 07/17/16 [History] Acetaminophen [Tylenol Arthritis] 1,300 mg PO Q8H PRN 11/09/16 [History] Cetirizine [ZyrTEC] 10 mg PO DAILY PRN 11/09/16 [History] Propylene Glycol/PEG 400/Pf [Systane 0.3-0.4% Eye Drop] 1 drop EYEBOTH Q4H PRN 11/09/16 [History] clonazePAM [Klonopin] 0.5 mg PO BID PRN 11/09/16 [History] Aspirin 81 mg PO DAILY 09/27/18 [History] Cholestyramine/Sucrose [Cholestyramine] 4 gm PO WITHDINNER 09/27/18 [History] Clopidogrel Bisulfate [Plavix] 75 mg PO DAILY 09/27/18 [History] Diclofenac Sodium [Voltaren] 4 gm TP QID PRN 09/27/18 [History] Estrogens, Conjugated [Premarin Vaginal Crm] 0.5 gm VAG TUSA@2100 09/27/18 [History] Isosorbide Mononitrate [Imdur] 30 mg PO DAILY 09/27/18 [History] Lactulose 20 gm PO BID PRN 09/27/18 [History] Melatonin 10 mg PO BEDTIME 09/27/18 [History] Nitroglycerin [Nitrostat] 0.4 mg SL Q5M PRN 09/27/18 [History] SUMAtriptan [Imitrex] 25 mg PO ASDIRECTED 09/27/18 [History] atorvaSTATin [Lipitor] 40 mg PO DAILY 09/27/18 [History] clonazePAM [Klonopin] 2 mg PO BEDTIME 09/27/18 [History] tiZANidine [Zanaflex] 2 mg PO BEDTIME PRN 09/27/18 [History] ARIPiprazole [Abilify] 15 mg PO DAILY 12/25/19 [History] Calcium Citrate/Vitamin D3 [Calcium Citrate - Vit D Caplet] 1 tab PO DAILY 12/25/19 [History] DULoxetine [Cymbalta] 120 mg PO DAILY 12/25/19 [History] Folic Acid 2.4 mg PO DAILY 12/25/19 [History] Magnesium Oxide 400 mg PO DAILY 12/25/19 [History] Metoprolol Succinate [Toprol XL] 12.5 mg PO DAILY 12/25/19 [History] Mirabegron [Myrbetriq] 25 mg PO DAILY 12/25/19 [History] Pnv No.95/Ferrous Fum/Folic AC [ Caplet] 1 tab PO DAILY 12/25/19 [History] Potassium Chloride [Klor-Con M20] 20 meq PO DAILY #30 tab.er 12/25/19 [Rx] allopurinoL [Zyloprim] 300 mg PO DAILY 12/25/19 [History] calcitrioL [Calcitriol] 0.25 mcg PO DAILY 12/25/19 [History] polyethylene glycoL 3350 [MiraLAX] 17 gm PO BEDTIME 12/25/19 [History] Azithromycin [Zithromax] 500 mg PO DAILY #10 tab 12/30/20 [Rx] Past Medical History HEENT History: Reports: Other (See Below) Other HEENT History: wears glasses for reading. Cardiovascular History: Reports: CAD, Hypertension, FL, PTCA, Stents Respiratory History: Reports: Asthma Gastrointestinal History: Reports: Diverticulosis, GERD Genitourinary History: Reports: Renal Disease, Other (See Below) Other Genitourinary History: RENAL FAILURE STAGE III 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 DIET NURSING CLINICAL DIRECTOR History: Reports: Polycystic Ovaries, Other NURSING CLINICAL DIRECTOR History: Musculoskeletal History: Reports: Arthritis, Fracture, Fibromyalgia, Osteoarthritis, Other (See Below) Other Musculoskeletal History: ANKOLOSIS SPONDYLITIS AND OSTEOPENIA, hx fx L lower leg Neurological History: Reports: Concussion, Migraines Psychiatric History: Reports: Anxiety, Depression Endocrine/Metabolic History: Reports: Hyperparathyroidism, Obesity/BMI 30+, Osteopenia Hematologic History: Reports: Blood Transfusion(s) Immunologic History: Reports: Immunosuppression, Other (See Below) Other Immunologic History: states is immunosuppressed from ankylosing spondylosis Dermatologic History: Reports: Other (See Below) Other Dermatologic History: has mites - Infectious Disease History Infectious Disease History: Reports: Chicken Pox, Mumps - Past Surgical History Cardiovascular Surgical History: Reports: Coronary Artery Stent GI Surgical History: Reports: Bariatric Procedure, Cholecystectomy, Colonoscopy, EGD, Hernia, Abdominal, Other (See Below) Other GI Surgeries/Procedures: GASTRIC BYPASS, PANNICULECTOMY Female Surgical History: Reports: Breast Biopsy, Hysterectomy, Oophorectomy, Other (See Below) Other Female Surgeries/Procedures: rectocele & cystocele repair Endocrine Surgical History: Reports: Parathyroidectomy Neurological Surgical History: Reports: Spinal Fusion Musculoskeletal Surgical History: Reports: Hip Replacement, Knee Replacement Other Musculoskeletal Surgeries/Procedures:: L hip & R knee replacements, back surgeries Social & Family History - Family History Family Medical History: No Pertinent Family History - Tobacco Use Tobacco Use Status *Q: Never Tobacco User - Caffeine Use Caffeine Use: Reports: None Other Caffeine Use: rarely - Living Situation & Occupation Living situation: Reports: Occupation: Employed (Works at [employer]) ED ROS GENERAL - Review of Systems Review Of Systems: See Below Constitutional: Reports: Chills, Malaise, Weakness HEENT: Reports: No Symptoms Respiratory: Reports: No Symptoms Cardiovascular: Reports: No Symptoms Endocrine: Reports: No Symptoms GI/Abdominal: Reports: Abdominal Pain, Diarrhea : Reports: No Symptoms Musculoskeletal: Reports: No Symptoms Skin: Reports: No Symptoms Neurological: Reports: No Symptoms Psychiatric: Reports: No Symptoms Hematologic/Lymphatic: Reports: No Symptoms Immunologic: Reports: No Symptoms ED EXAM, GENERAL - Physical Exam Exam: See Below Exam Limited By: No Limitations General Appearance: Alert, No Apparent Distress Ears: Normal External Exam, Normal Canal Nose: Normal Inspection, Normal Mucosa, No Blood Throat/Mouth: Normal Inspection, Normal Lips, Normal Teeth Head: Atraumatic, Normocephalic Neck: Normal Inspection, Supple, Non-Tender Respiratory/Chest: No Respiratory Distress, Lungs Clear, Normal Breath Sounds, No Accessory Muscle Use, Chest Non-Tender Cardiovascular: Normal Peripheral Pulses, Regular Rate, Rhythm, No Edema, No JVD, No Murmur GI/Abdominal: Normal Bowel Sounds, Soft, Non-Tender, No Distention, No Abnormal Bruit, No Mass Back Exam: Normal Inspection, Full Range of Motion Extremities: Normal Inspection, Normal Range of Motion, Non-Tender, No Pedal Edema, Normal Capillary Refill Neurological: Alert, Oriented, CN II-XII Intact, Normal Cognition, Normal Reflexes, No Motor/Sensory Deficits Psychiatric: Normal Affect, Normal Mood Course - Vital Signs Text/Narrative:: Lab result was reviewed and discussed with patient and Dr Denis KELLER 2 L bolus Toradol 30 mg IV x1 Lomotil 2 PO x1 Cipro 500 mg IV x1 Zithroma x 500 mg IV x1 Last Recorded V/S: Last Vital Signs Temp 36.2 C 12/30/20 15:41 Pulse 98 12/30/20 15:41 Resp 16 12/30/20 15:41 BP 103/75 12/30/20 15:41 Pulse Ox 100 12/30/20 15:41 - Orders/Labs/Meds Orders: Active Orders 24 hr Category Date Time Status Azithromycin [Zithromax] 500 mg Med 12/30/20 17:44 Active Sodium Chloride 0.9% [Normal Saline AdvBag] 250 ml IV NOW Ciprofloxacin in D5W [Cipro in D5W 400 MG/200 ML] 400 Med 12/30/20 17:44 Active mg Premix Bag 1 bag IV NOW Sodium Chloride 0.9% [Normal Saline] 1,000 ml Med 12/30/20 16:15 Active IV ASDIRECTED Sodium Chloride 0.9% [Normal Saline] 1,000 ml Med 12/30/20 17:00 Active IV ASDIRECTED Sodium Chloride 0.9% [Saline Flush] Med 12/30/20 16:05 Active 10 ml FLUSH ASDIRECTED PRN Saline Lock Insert [OM.PC] Routine Oth 12/30/20 16:05 Ordered Medication Orders Sodium Chloride (Normal Saline) 1,000 mls @ 999 mls/hr IV ASDIRECTED CORNELIUS Last Admin: 12/30/20 17:19 Dose: 999 mls/hr Documented by: Infusion: 12/30/20 17:18 Dose: 999 mls/hr Documented by: Admin: 12/30/20 16:17 Dose: 999 mls/hr Documented by: RICARDO Sodium Chloride (Normal Saline) 1,000 mls @ 999 mls/hr IV ASDIRECTED CORNELIUS Azithromycin 500 mg/ Sodium (Chloride) 250 mls @ 250 mls/hr IV NOW STA Stop: 12/30/20 18:43 Ciprofloxacin/Dextrose 400 mg/ (Premix) 200 mls @ 200 mls/hr IV NOW STA Stop: 12/30/20 18:43 Last Admin: 12/30/20 17:53 Dose: 200 mls/hr Documented by: RICARDO Sodium Chloride (Sodium Chloride 0.9% 10 Ml Syringe) 10 ml FLUSH ASDIRECTED PRN PRN Reason: Keep Vein Open Last Admin: 12/30/20 16:17 Dose: 10 ml Documented by: RICARDO Labs: Laboratory Tests 12/30/20 12/30/20 12/30/20 Range/Units 16:35 16:35 16:35 WBC 5.9 (3.0-10.3) x10-3/uL RBC 3.98 (3.60-5.20) x10(6)uL Hgb 11.9 (11.4-15.5) g/dL Hct 36.9 (34.2-48.2) % MCV 92.6 (76.7-100.5) fL MCH 29.8 (23.9-33.9) pg MCHC 32.2 (31.9-34.8) g/dL RDW 14.5 (12.3-16.5) % Plt Count 194 (151-488) x10(3)uL MPV 8.0 (7.1-12.4) fL Neut % (Auto) 45.5 (30.8-76.2) % Lymph % (Auto) 39.3 (18.4-52.1) % [place] % (Auto) 12.2 (4.4-15.7) % Eos % (Auto) 2.1 (0.6-8.1) % Baso % (Auto) 0.9 (0.2-1.5) % Neut # (Auto) 2.7 (1.5-6.3) x10-3/uL Lymph # (Auto) 2.3 (1.0-4.4) x10-3/uL [place] # (Auto) 0.7 (0.3-1.0) x10-3/uL Eos # (Auto) 0.1 (0.0-0.8) x10-3/uL Baso # (Auto) 0.1 (0.0-0.1) x10-3/uL D-Dimer, Quantitative (0.0-0.59) mg/LFEU Sodium 141 (135-145) mmol/L Potassium 3.6 (3.5-5.3) mmol/L Chloride 103 (100-110) mmol/L Carbon Dioxide 34 H (21-32) mmol/L BUN 13 (7-18) mg/dL Creatinine 1.4 H (0.55-1.02) mg/dL Est Cr Clr Drug Dosing 31.04 mL/min Estimated GFR (MDRD) 38 L (>60) BUN/Creatinine Ratio 9.3 (9-20) Glucose 49 L* (80-116) mg/dL Lactic Acid 0.7 (0.4-2.0) mmol/L Calcium 9.1 (8.6-10.2) mg/dL Total Bilirubin 0.5 (0.1-1.3) mg/dL AST 29 H D (5-25) IU/L ALT 48 H D (12-36) U/L Alkaline Phosphatase 80 (56-112) IU/L Total Protein 7.2 (6.0-8.0) g/dL Albumin 3.3 (3.2-4.6) g/dL Globulin 3.9 g/dL Albumin/Globulin Ratio 0.9 SARS-CoV-2 RNA (IS[facility]O) (NEGATIVE) 12/30/20 12/30/20 Range/Units 16:35 16:46 WBC (3.0-10.3) x10-3/uL RBC (3.60-5.20) x10(6)uL Hgb (11.4-15.5) g/dL Hct (34.2-48.2) % MCV (76.7-100.5) fL MCH (23.9-33.9) pg MCHC (31.9-34.8) g/dL RDW (12.3-16.5) % Plt Count (151-488) x10(3)uL MPV (7.1-12.4) fL Neut % (Auto) (30.8-76.2) % Lymph % (Auto) (18.4-52.1) % [place] % (Auto) (4.4-15.7) % Eos % (Auto) (0.6-8.1) % Baso % (Auto) (0.2-1.5) % Neut # (Auto) (1.5-6.3) x10-3/uL Lymph # (Auto) (1.0-4.4) x10-3/uL [place] # (Auto) (0.3-1.0) x10-3/uL Eos # (Auto) (0.0-0.8) x10-3/uL Baso # (Auto) (0.0-0.1) x10-3/uL D-Dimer, Quantitative 0.52 (0.0-0.59) mg/LFEU Sodium (135-145) mmol/L Potassium (3.5-5.3) mmol/L Chloride (100-110) mmol/L Carbon Dioxide (21-32) mmol/L BUN (7-18) mg/dL Creatinine (0.55-1.02) mg/dL Est Cr Clr Drug Dosing mL/min Estimated GFR (MDRD) (>60) BUN/Creatinine Ratio (9-20) Glucose (80-116) mg/dL Lactic Acid (0.4-2.0) mmol/L Calcium (8.6-10.2) mg/dL Total Bilirubin (0.1-1.3) mg/dL AST (5-25) IU/L ALT (12-36) U/L Alkaline Phosphatase (56-112) IU/L Total Protein (6.0-8.0) g/dL Albumin (3.2-4.6) g/dL Globulin g/dL Albumin/Globulin Ratio SARS-CoV-2 RNA ([facility]) Negative (NEGATIVE) Meds: Medications Generic Name Dose Route Start Last Admin Trade Name Anyi PRN Reason Stop Dose Admin Sodium Chloride 1,000 mls @ 999 mls/hr 12/30/20 16:15 12/30/20 17:19 Normal Saline IV 999 mls/hr ASDIRECTED CORNELIUS Administration Sodium Chloride 1,000 mls @ 999 mls/hr 12/30/20 17:00 Normal Saline IV ASDIRECTED CORNELIUS Azithromycin 500 mg/ Sodium 250 mls @ 250 mls/hr 12/30/20 17:44 Chloride IV 12/30/20 18:43 NOW STA Ciprofloxacin/Dextrose 400 mg/ 200 mls @ 200 mls/hr 12/30/20 17:44 12/30/20 17:53 Premix IV 12/30/20 18:43 200 mls/hr NOW STA Administration Sodium Chloride 10 ml 12/30/20 16:05 12/30/20 16:17 Sodium Chloride 0.9% 10 Ml Syringe FLUSH 10 ml ASDIRECTED PRN Administration Keep Vein Open Discontinued Medications Generic Name Dose Route Start Last Admin Trade Name Anyi PRN Reason Stop Dose Admin Dextrose/Water 50 ml 12/30/20 17:31 12/30/20 17:36 50% Dextrose In Water 50 Ml Syringe IVPUSH 12/30/20 17:32 50 ml ONETIME ONE Administration Diphenoxylate HCl/Atropine 2 tab 12/30/20 16:59 12/30/20 17:22 Atropine/Diphenoxylate 0.025-2.5 Mg Tab PO 12/30/20 17:00 2 tab NOW STA Administration Ketorolac Tromethamine 30 mg 12/30/20 16:58 12/30/20 17:20 Ketorolac 30 Mg/Ml Sdv IVPUSH 12/30/20 16:59 30 mg ONETIME ONE Administration Departure - Departure Time of Disposition: 19:00 Disposition: Home, Self-Care 01 Condition: Good Clinical Impression: Salmonella gastroenteritis - Discharge Information Prescriptions: Azithromycin [Zithromax] 500 mg PO DAILY #10 tab Instructions: Salmonella Gastroenteritis, Adult Referrals: Dewayne Barrios MD [Primary Care Provider] - Forms: ED Department Discharge Additional Instructions: Please read discharge instructions on Salmonella Gastroenteritis Drink at least 2 liters of water daily Grequent hand washing Zithromax 50 mg daily for 10 days Cipro 500 mg twice daily for 10 days Follow up with Dr Barrios on Wednesday Sepsis Event Note (ED) - Evaluation Sepsis Screening Result: No Definite Risk - Focused Exam Vital Signs: Vital Signs Temp Pulse Resp BP Pulse Ox 12/30/20 15:41 36.2 C 98 16 103/75 100 - My Orders Last 24 Hours: My Active Orders 12/30/20 16:05 Sodium Chloride 0.9% [Saline Flush] 10 ml FLUSH ASDIRECTED PRN Saline Lock Insert [OM.PC] Routine 12/30/20 16:15 Sodium Chloride 0.9% [Normal Saline] 1,000 ml IV ASDIRECTED 12/30/20 17:00 Sodium Chloride 0.9% [Normal Saline] 1,000 ml IV ASDIRECTED 12/30/20 17:44 Azithromycin [Zithromax] 500 mg Sodium Chloride 0.9% [Normal Saline AdvBag] 250 ml IV NOW Ciprofloxacin in D5W [Cipro in D5W 400 MG/200 ML] 400 mg Premix Bag 1 bag IV NOW - Assessment/Plan Last 24 Hours: My Active Orders 12/30/20 16:05 Sodium Chloride 0.9% [Saline Flush] 10 ml FLUSH ASDIRECTED PRN Saline Lock Insert [OM.PC] Routine 12/30/20 16:15 Sodium Chloride 0.9% [Normal Saline] 1,000 ml IV ASDIRECTED 12/30/20 17:00 Sodium Chloride 0.9% [Normal Saline] 1,000 ml IV ASDIRECTED 12/30/20 17:44 Azithromycin [Zithromax] 500 mg Sodium Chloride 0.9% [Normal Saline AdvBag] 250 ml IV NOW Ciprofloxacin in D5W [Cipro in D5W 400 MG/200 ML] 400 mg Premix Bag 1 bag IV NOW
[2020-12-30 21:25] VITALS: BP 132/79; PULSE 83
== END 2020-12-30 20:13 | disposition home or self-care (01) ==
LOC: FB.ED 15:30
DX: A02.0 Salmonella enteritis (principal); I25.10 Atherosclerotic heart disease of native coronary artery without angina pectoris; I10 Essential (primary) hypertension; I25.2 Old myocardial infarction; J45.909 Unspecified asthma, uncomplicated; M19.90 Unspecified osteoarthritis, unspecified site; E21.3 Hyperparathyroidism, unspecified; E66.9 Obesity, unspecified; Z68.33 Body mass index [BMI] 33.0-33.9, adult; Z88.0 Allergy status to penicillin; Z88.8 Allergy status to other drugs, medicaments and biological substances; Z88.5 Allergy status to narcotic agent; Z91.048 Other nonmedicinal substance allergy status; Z88.1 Allergy status to other antibiotic agents; Z91.040 Latex allergy status; Z79.82 Long term (current) use of aspirin; Z79.02 Long term (current) use of antithrombotics/antiplatelets; Z79.899 Other long term (current) drug therapy; Z20.822 Contact with and (suspected) exposure to COVID-19
CPT/HCPCS: 36415; 80053; 83605; 85025; 85379; 96365; 96367; 96375; 99284; A9270; J0456; J0744; J1885; J7030; J7050; U0002

== ENCOUNTER 2021-01-03 07:45 | Inpatient (IN) | payer MEDICARE ==
[2021-01-03] MEDS ORDERED: Sodium Chloride 0.9% 10 ML Syringe FLUSH PRN (13:38)
[2021-01-03] MEDS: Sodium Chloride 0.9% 1,000 ML IV SCH (14:20)
[2021-01-03] MEDS: Ciprofloxacin in D5W 400 MG in Premix Bag 1 BAG IV SCH ×2 (14:45)
--- NOTE | 2021-01-03 14:57 | PCM.HP.2 ---
H&P History of Present Illness - General Date of Service: 01/03/21 Admit Problem/Dx: Admission Diagnosis/Problem Admission Diagnosis/Problem Salmonella gastroenteritis Source of Information: Patient, Old Records, Provider History Limitations: Reports: No Limitations - History of Present Illness Initial Comments - Free Text/Narative: Samina presents for direct admission from Clinic for worsening Salmonella gastroenteritis. She started having symptoms on 12/21, was seen in clinic on 12/24 had C. difficile testing, basic enteric pathogen panel, CMP and started on Vancomycin while awaiting test results. She had been on Linezolid for UTI(she's had 15 UTIs in the past year). Testing came back negative for C. Difficile so that was discontinued. 12/26 enteric pathogen panel came back positive for Salmonella. She was advised to do supportive care, she was having 10-20 stools per day when seen on 12/24, it was worsening so contacted Dr Barrios on 12/30, he advised coming into clinic or going to ER. She was seen in ER by Dr Bush started on Ciprofloxacin and Azithromycin for 10 days. She denies any vomiting, nausea, fevers, chills, shortness of breath, chest pain. Describes diarrhea has yellow/green stool, watery, some bright red blood when she wipes. States she has dry mouth, but no dysuria, hematuria or frequency of urination. No rash, though dry hands from aggressive hand washing. Has had runny nose but cough. Covid test in clinic today was negative. History of Gastric bypass, hypertension, ankylosing spondylitis on Consentyx. She also has intrathecal pump for pain management of Sacroiliitis. Cardiac stents x 2 placed in 12/2017. - Related Data Allergies/Adverse Reactions: Allergies Allergy/AdvReac Type Severity Reaction Status Date / Time Penicillins Allergy Severe Rash Verified 06/03/19 12:40 gabapentin [From Neurontin] Allergy Mild Nausea and Verified 06/03/19 12:40 Vomiting oxycodone HCl [From Percocet] Allergy Mild Rash Verified 06/03/19 12:40 adhesive Allergy Unknown UNKNOWN Verified 06/03/19 12:40 morphine Allergy Unknown UNKNOWN Verified 06/03/19 12:40 clindamycin HCl Allergy Rash Verified 06/03/19 12:40 [From Cleocin] clindamycin palmitate HCl Allergy Rash Verified 06/03/19 12:40 [From Cleocin] clindamycin phosphate Allergy Rash Verified 06/03/19 12:40 [From Cleocin] hydrocodone Allergy Rash Verified 06/03/19 12:40 Latex, Natural Rubber Allergy Itching Verified 06/03/19 12:40 telithromycin [From Ketek] Allergy Rash Verified 06/03/19 12:40 ELASTIC BANDAGE IN CLOTHING Allergy Mild Itching Uncoded 05/03/19 15:47 ELASTIC BANDAGES & ZINC Allergy Unknown UNKNOWN Uncoded 05/03/19 15:47 SULFATE Home Medications: Home Meds Furosemide [Lasix] 20 mg PO DAILY 07/17/16 [History] Acetaminophen [Tylenol Arthritis] 1,300 mg PO Q8H PRN 11/09/16 [History] Cetirizine [ZyrTEC] 10 mg PO DAILY PRN 11/09/16 [History] Propylene Glycol/PEG 400/Pf [Systane 0.3-0.4% Eye Drop] 1 drop EYEBOTH Q4H PRN 11/09/16 [History] clonazePAM [Klonopin] 0.5 mg PO BID PRN 11/09/16 [History] Aspirin 81 mg PO DAILY 09/27/18 [History] Cholestyramine/Sucrose [Cholestyramine] 4 gm PO WITHDINNER 09/27/18 [History] Clopidogrel Bisulfate [Plavix] 75 mg PO DAILY 09/27/18 [History] Diclofenac Sodium [Voltaren] 4 gm TP QID PRN 09/27/18 [History] Estrogens, Conjugated [Premarin Vaginal Crm] 0.5 gm VAG TUSA@2100 09/27/18 [History] Isosorbide Mononitrate [Imdur] 30 mg PO DAILY 09/27/18 [History] Lactulose 20 gm PO BID PRN 09/27/18 [History] Melatonin 10 mg PO BEDTIME 09/27/18 [History] Nitroglycerin [Nitrostat] 0.4 mg SL Q5M PRN 09/27/18 [History] SUMAtriptan [Imitrex] 25 mg PO ASDIRECTED 09/27/18 [History] atorvaSTATin [Lipitor] 40 mg PO DAILY 09/27/18 [History] clonazePAM [Klonopin] 2 mg PO BEDTIME 09/27/18 [History] tiZANidine [Zanaflex] 2 mg PO BEDTIME PRN 09/27/18 [History] ARIPiprazole [Abilify] 15 mg PO DAILY 12/25/19 [History] Calcium Citrate/Vitamin D3 [Calcium Citrate - Vit D Caplet] 1 tab PO DAILY 12/25/19 [History] DULoxetine [Cymbalta] 120 mg PO DAILY 12/25/19 [History] Folic Acid 2.4 mg PO DAILY 12/25/19 [History] Magnesium Oxide 400 mg PO DAILY 12/25/19 [History] Metoprolol Succinate [Toprol XL] 12.5 mg PO DAILY 12/25/19 [History] Mirabegron [Myrbetriq] 25 mg PO DAILY 12/25/19 [History] Pnv No.95/Ferrous Fum/Folic AC [ Caplet] 1 tab PO DAILY 12/25/19 [History] Potassium Chloride [Klor-Con M20] 20 meq PO DAILY #30 tab.er 12/25/19 [Rx] allopurinoL [Zyloprim] 300 mg PO DAILY 12/25/19 [History] calcitrioL [Calcitriol] 0.25 mcg PO DAILY 12/25/19 [History] polyethylene glycoL 3350 [MiraLAX] 17 gm PO BEDTIME 12/25/19 [History] Azithromycin [Zithromax] 500 mg PO DAILY #10 tab 12/30/20 [Rx] Past Medical History HEENT History: Reports: Other (See Below) Other HEENT History: wears glasses for reading. Cardiovascular History: Reports: CAD, Hypertension, VA, PTCA, Stents Respiratory History: Reports: Asthma Gastrointestinal History: Reports: Diverticulosis, GERD Genitourinary History: Reports: Renal Disease, Other (See Below) Other Genitourinary History: RENAL FAILURE STAGE III 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 DIET NREMT History: Reports: Polycystic Ovaries, Other OB/BYN History: Musculoskeletal History: Reports: Arthritis, Fracture, Fibromyalgia, Osteoarthritis, Other (See Below) Other Musculoskeletal History: ANKOLOSIS SPONDYLITIS AND OSTEOPENIA, hx fx L lower leg Neurological History: Reports: Concussion, Migraines Psychiatric History: Reports: Anxiety, Depression Endocrine/Metabolic History: Reports: Hyperparathyroidism, Obesity/BMI 30+, Osteopenia Hematologic History: Reports: Blood Transfusion(s) Immunologic History: Reports: Immunosuppression, Other (See Below) Other Immunologic History: states is immunosuppressed from ankylosing spondylosis Dermatologic History: Reports: Other (See Below) Other Dermatologic History: has mites - Infectious Disease History Infectious Disease History: Reports: Chicken Pox, Mumps - Past Surgical History Cardiovascular Surgical History: Reports: Coronary Artery Stent GI Surgical History: Reports: Bariatric Procedure, Cholecystectomy, Colonoscopy, EGD, Hernia, Abdominal, Other (See Below) Other GI Surgeries/Procedures: GASTRIC BYPASS, PANNICULECTOMY Female Surgical History: Reports: Breast Biopsy, Hysterectomy, Oophorectomy, Other (See Below) Other Female Surgeries/Procedures: rectocele & cystocele repair Endocrine Surgical History: Reports: Parathyroidectomy Neurological Surgical History: Reports: Spinal Fusion Musculoskeletal Surgical History: Reports: Hip Replacement, Knee Replacement Other Musculoskeletal Surgeries/Procedures:: L hip & R knee replacements, back surgeries Social & Family History - Family History Family Medical History: No Pertinent Family History - Caffeine Use Caffeine Use: Reports: None Other Caffeine Use: rarely - Living Situation & Occupation Living situation: Reports: Occupation: Employed (Works at [employer]) H&P Review of Systems - Review of Systems: Review Of Systems: Comprehensive ROS is negative, except as noted in HPI. Exam - Exam Exam: See Below - Exam General: Alert, Oriented, Cooperative HEENT: PERRLA, Conjunctiva Clear, EOMI, Hearing Intact. No: Mucosa Moist & [place] Neck: Trachea Midline. No: Lymphadenopathy Lungs: Clear to Auscultation, Normal Respiratory Effort Cardiovascular: Tachycardia GI/Abdominal Exam: Soft, No Distention, Guarding, Tender (diffuse), Abnormal Bowel Sounds (hyperactive BS x 4) (Female) Exam: Deferred Rectal (Female) Exam: Deferred Extremities: No Pedal Edema, Normal Capillary Refill Peripheral Pulses: 2+: Radial (L), Radial (R), Posterior Tibial (L), Posterior Tibial (R), Dorsalis Pedis (L), Dorsalis Pedis (R) Skin: Warm, Dry, Intact, Rash (dry skin bilateral hands) Neurological: Cranial Nerves Intact, Normal Speech, Normal Tone - Problem List (1) Salmonella gastroenteritis SNOMED Code(s): 92574607 ICD Code: A02.0 - SALMONELLA ENTERITIS Status: Acute Current Visit: No (2) Dehydration SNOMED Code(s): 39768501 ICD Code: E86.0 - DEHYDRATION Status: Acute Current Visit: No (3) 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 SNOMED Code(s): 246087836 ICD Code: Z98.84 - BARIATRIC SURGERY STATUS Status: Chronic Current Visit: Yes (4) Hypertension SNOMED Code(s): 49705982 ICD Code: I10 - ESSENTIAL (PRIMARY) HYPERTENSION Status: Chronic Current Visit: Yes (5) Atherosclerotic heart disease of tribal coronary artery without angina pectoris SNOMED Code(s): 194818722 ICD Code: I25.10 - ATHSCL HEART DISEASE OF [place] CORONARY ARTERY W/O ANG PC TRS Status: Chronic Current Visit: Yes (6) Generalized anxiety disorder SNOMED Code(s): 95434611 ICD Code: F41.1 - GENERALIZED ANXIETY DISORDER Status: Chronic Current Visit: Yes (7) Major depressive disorder, recurrent episode, mild SNOMED Code(s): 546064032, 100098781, 970995350 ICD Code: F33.0 - MAJOR DEPRESSIVE DISORDER, RECURRENT, MILD Status: Chronic Current Visit: Yes (8) GERD (gastroesophageal reflux disease) SNOMED Code(s): 069434836 ICD Code: K21.9 - GASTRO-ESOPHAGEAL REFLUX DISEASE WITHOUT ESOPHAGITIS Status: Chronic Current Visit: Yes (9) Postsurgical dumping syndrome SNOMED Code(s): 37523756 ICD Code: K91.1 - POSTGASTRIC SURGERY SYNDROMES Status: Chronic Current Visit: Yes (10) Ankylosing spondylitis SNOMED Code(s): 0191757 ICD Code: M45.9 - ANKYLOSING SPONDYLITIS OF UNSPECIFIED SITES IN SPINE Status: Chronic Current Visit: Yes Problem Details: on Cosentyx (11) Presence of implanted infusion pump SNOMED Code(s): 740911051, 615489747 ICD Code: Z95.828 - PRESENCE OF OTHER VASCULAR IMPLANTS AND GRAFTS Status: Acute Current Visit: Yes Problem Details: for Sacroiliitis (12) Sacroiliitis SNOMED Code(s): 94656874 ICD Code: M46.1 - SACROILIITIS, NOT ELSEWHERE CLASSIFIED Status: Chronic Current Visit: Yes (13) CKD (chronic kidney disease) SNOMED Code(s): 991593352 ICD Code: N18.9 - CHRONIC KIDNEY DISEASE, UNSPECIFIED Status: Chronic Current Visit: No (14) Personal history of immunosupression therapy SNOMED Code(s): 303108055 ICD Code: Z92.25 - PERSONAL HISTORY OF IMMUNOSUPPRESSION THERAPY Status: Acute Current Visit: Yes Problem Details: On Cosentyx for Ankylosing spondylitis Problem List Initiated/Reviewed/Updated: Yes Orders Last 24hrs: Active Orders 24 hr Category Date Time Status Patient Status [ADT] Routine ADT 01/03/21 13:38 Active Nurse Communication: Isolation [RC] ASDIRECTED Care 01/03/21 13:47 Active Oxygen Therapy [RC] PRN Care 01/03/21 13:38 Active Up ad Eveline [RC] ASDIRECTED Care 01/03/21 13:38 Active VTE/DVT Education [RC] Per Unit Routine Care 01/03/21 13:38 Active Vital Signs [RC] Q4H Care 01/03/21 13:38 Active Regular Diet [DIET] Diet 01/03/21 Dinner Active Abdomen Pelvis w wo Cont [CT] Urgent Exams 01/03/21 13:38 Ordered CBC WITH AUTO DIFF [HEME] Routine Lab 01/03/21 14:10 Received COMPREHENSIVE METABOLIC PN,CMP [CHEM] Routine Lab 01/03/21 14:10 Received CULTURE BLOOD [BC] Urgent Lab 01/03/21 14:10 Received CULTURE BLOOD [BC] Urgent Lab 01/03/21 14:10 Received Ciprofloxacin in D5W [Cipro in D5W 400 MG/200 ML] 400 Med 01/03/21 14:15 Active mg Premix Bag 1 bag IV Q12H Enoxaparin [Lovenox] Med 01/03/21 13:45 Ordered 40 mg SUBCUT Q24H Ondansetron [Zofran ODT] Med 01/03/21 13:38 Active 4 mg PO Q4H PRN Pantoprazole [ProTONIX] Med 01/04/21 06:00 Active 40 mg PO DAILY@0600 Sodium Chloride 0.9% [Normal Saline] 1,000 ml Med 01/03/21 13:45 Active IV ASDIRECTED Sodium Chloride 0.9% [Saline Flush] Med 01/03/21 13:38 Active 10 ml FLUSH ASDIRECTED PRN Antiembolic Hose [OM.PC] Per Unit Routine Oth 01/03/21 13:39 Ordered Blood Culture x2 Reflex Set [OM.PC] Urgent Oth 01/03/21 13:38 Ordered Isolation [COMM] Routine Oth 01/03/21 13:47 Ordered Peripheral IV Insertion Adult [OM.PC] Routine Oth 01/03/21 13:38 Ordered Resuscitation Status Routine Resus Stat 01/03/21 13:38 Ordered Medication Orders Enoxaparin Sodium (Enoxaparin 40 Mg/0.4 Ml Syringe) 40 mg SUBCUT Q24H [facility] Sodium Chloride (Normal Saline) 1,000 mls @ 125 mls/hr IV ASDIRECTED CORNELIUS Ciprofloxacin/Dextrose 400 mg/ (Premix) 200 mls @ 200 mls/hr IV Q12H CORNELIUS Ondansetron HCl (Ondansetron 4 Mg Tab.Dis) 4 mg PO Q4H PRN PRN Reason: Nausea/Vomiting Pantoprazole Sodium (Pantoprazole 40 Mg Tab.Cr) 40 mg PO DAILY@0600 CORNELIUS Sodium Chloride (Sodium Chloride 0.9% 10 Ml Syringe) 10 ml FLUSH ASDIRECTED PRN PRN Reason: Keep Vein Open Assessment/Plan Comment:: 1. Admit for dehydration, salmonella gastroenteritis, immunocompromised status on Cosentyx. 2. Salmonella gastroenteritis: Was on oral ciprofloxacin & Azithromycin for 3 days will change to Ciprofloxacin 400 mg IV q12h then transition back to oral. Since she is on Consentyx, would treat for [address] Barrios sent over from clinic, was positive on 12/26, symptoms started 12/21. He spoke with [facility], they recommended supportive care, CT abdomen/pelvis with contrast, Blood cultures. Covid negative in clinic. CBC, CMP, Blood cultures pending. CT abdomen/pelvis with contrast ordered. Enteric isolation. 3. Dehydration: NS at 125 ml/hr. 4. Diet: Regular. 5. Sacroiliitis: Intrathecal pump in place for pain, will not do any adjustments to this. 6. Activity: as tolerated. 7. DVT prophylaxis: ambulate around room. 8. CODE STATUS: FULL. 9. Disposition: anticipate discharge once diarrhea slows and pt can maintain hydration. Adjust treatments as necessary. - Mortality Measure Prognosis:: Good
[2021-01-03] MEDS ORDERED: Iopamidol 755 Mg/ML 75 ML Bottle IV ONE (15:36)
[2021-01-03] MEDS ORDERED: Diatrizoate Meglumine/Diatrizoate Sodium 37% 30 ML Bottle PO ONE (15:36)
[2021-01-03] MEDS: Enoxaparin 40 MG/0.4 ML Syringe SUBCUT SCH (18:12)
[2021-01-03] MEDS: Famotidine 20 MG Tab PO SCH (20:22)
[2021-01-03] MEDS: MELATONIN 10 MG PO SCH (20:23)
[2021-01-03] MEDS ORDERED: ClonazePAM 1 MG Tab PO SCH (21:00)
[2021-01-03] MEDS: Tamsulosin 0.4 MG Cap.ER PO SCH (21:18)
[2021-01-04] MEDS: Sodium Chloride 0.9% 1,000 ML IV SCH ×3 (00:38→20:00)
[2021-01-04] MEDS: Ciprofloxacin in D5W 400 MG in Premix Bag 1 BAG IV SCH ×4 (01:46→14:34)
[2021-01-04] MEDS: Pantoprazole 40 MG Tab.CR PO SCH (05:50)
[2021-01-04] MEDS: Allopurinol 300 MG Tab PO SCH (09:11)
[2021-01-04] MEDS: Mirabegron 25 MG Tab Extended Release PO SCH (09:11)
[2021-01-04] MEDS: atorvaSTATin 40 MG Tab PO SCH (09:12)
[2021-01-04] MEDS: Calcitriol 0.25 MCG Cap PO SCH (09:13)
[2021-01-04] MEDS: OMEPRAZOLE 20 MG PO SCH (09:13)
[2021-01-04] MEDS: DULoxetine 60 MG Cap PO SCH (09:14)
[2021-01-04] MEDS: ARIPIPRAZOLE 15 MG PO SCH (09:14)
[2021-01-04] MEDS: Clopidogrel 75 MG Tab PO SCH (09:14)
[2021-01-04] MEDS: Potassium Citrate 10 MEQ Tab.ER PO SCH (09:15)
[2021-01-04] MEDS: PRENATAL PO SCH (09:16)
[2021-01-04] MEDS: Folic Acid 0.8 MG Tab PO SCH (09:16)
[2021-01-04] MEDS: D MANNOSE 500 MG PO SCH (09:17)
[2021-01-04] MEDS: Aspirin 81 MG Tab.EC PO SCH (09:17)
[2021-01-04] MEDS: MAGNESIUM 250 MG PO SCH (09:18)
[2021-01-04] MEDS: CYANOCOBALAMIN 500 MCG PO SCH (09:19)
[2021-01-04] MEDS: [UNRECOGNIZED DRUG - OTHER] PO SCH (09:20)
[2021-01-04] MEDS: CRANBERRY PO SCH (09:20)
[2021-01-04] MEDS: VITAMIN D3 PO SCH (09:20)
[2021-01-04] MEDS: CALCIUM CITRATE PO SCH (09:20)
--- NOTE | 2021-01-04 13:51 | PCM.PN ---
- General Info Date of Service: 01/04/21 Subjective Update: Samina states that she usually does not have diarrhea even after her gastric bypass, she doesn't have any issues with sugars. States she does not have dumping syndrome. She states she had stool incontinence even with showering today. She had CT Abdomen/pelvis yesterday showed infectious colitis, also showed multiple ureteral stones in left ureter ranging in size from 1 mm, 5 mm and one 9 mm stone that is the most proximal. She states she had lithotripsy a f ew months ago, has not passed the stones but states her pain is tolerable with her intrathecal pump. NO fevers. - Patient Data Vitals - Most Recent: Last Vital Signs Temp 98.1 F 01/04/21 06:00 Pulse 88 01/04/21 06:00 Resp 18 01/04/21 06:00 BP 122/82 01/04/21 06:00 Pulse Ox 97 01/04/21 06:00 Weight - Most Recent: 177 lb 6 oz I&O - Last 24 Hours: Intake & Output 01/03/21 01/04/21 01/04/21 22:59 06:59 14:59 Intake Total 815 1315 Balance 815 1315 Lab Results Last 24 Hours: Laboratory Results - last 24 hr 01/03/21 01/03/21 01/04/21 Range/Units 14:10 14:10 06:50 WBC 4.0 4.0 (3.0-10.3) x10-3/uL RBC 3.71 3.50 L (3.60-5.20) x10(6)uL Hgb 11.0 L 10.6 L (11.4-15.5) g/dL Hct 33.9 L 32.4 L (34.2-48.2) % MCV 91.3 92.5 (76.7-100.5) fL MCH 29.7 30.2 (23.9-33.9) pg MCHC 32.5 32.6 (31.9-34.8) g/dL RDW 15.1 15.0 (12.3-16.5) % Plt Count 163 154 (151-488) x10(3)uL MPV 8.2 8.6 (7.1-12.4) fL Neut % (Auto) 48.7 67.0 (30.8-76.2) % Lymph % (Auto) 36.8 22.6 (18.4-52.1) % Will % (Auto) 10.4 8.0 (4.4-15.7) % Eos % (Auto) 2.9 1.8 (0.6-8.1) % Baso % (Auto) 1.2 0.6 (0.2-1.5) % Neut # (Auto) 1.9 2.7 (1.5-6.3) x10-3/uL Lymph # (Auto) 1.5 0.9 L (1.0-4.4) x10-3/uL Will # (Auto) 0.4 0.3 (0.3-1.0) x10-3/uL Eos # (Auto) 0.1 0.1 (0.0-0.8) x10-3/uL Baso # (Auto) 0.0 0.0 (0.0-0.1) x10-3/uL Sodium 141 (135-145) mmol/L Potassium 3.8 (3.5-5.3) mmol/L Chloride 104 (100-110) mmol/L Carbon Dioxide 31 (21-32) mmol/L BUN 15 (7-18) mg/dL Creatinine 1.6 H (0.55-1.02) mg/dL Est Cr Clr Drug Dosing TNP Estimated GFR (MDRD) 33 L (>60) BUN/Creatinine Ratio 9.4 (9-20) Glucose 98 (80-116) mg/dL Calcium 8.5 L (8.6-10.2) mg/dL Total Bilirubin 0.4 (0.1-1.3) mg/dL AST 132 H D (5-25) IU/L ALT 141 H D (12-36) U/L Alkaline Phosphatase 90 (56-112) IU/L Total Protein 6.7 (6.0-8.0) g/dL Albumin 3.0 L (3.2-4.6) g/dL Globulin 3.7 g/dL Albumin/Globulin Ratio 0.8 01/04/ Range/Units 06:50 WBC (3.0-10.3) x10-3/uL RBC (3.60-5.20) x10(6)uL Hgb (11.4-15.5) g/dL Hct (34.2-48.2) % MCV (76.7-100.5) fL MCH (23.9-33.9) pg MCHC (31.9-34.8) g/dL RDW (12.3-16.5) % Plt Count (151-488) x10(3)uL MPV (7.1-12.4) fL Neut % (Auto) (30.8-76.2) % Lymph % (Auto) (18.4-52.1) % Will % (Auto) (4.4-15.7) % Eos % (Auto) (0.6-8.1) % Baso % (Auto) (0.2-1.5) % Neut # (Auto) (1.5-6.3) x10-3/uL Lymph # (Auto) (1.0-4.4) x10-3/uL Will # (Auto) (0.3-1.0) x10-3/uL Eos # (Auto) (0.0-0.8) x10-3/uL Baso # (Auto) (0.0-0.1) x10-3/uL Sodium 140 (135-145) mmol/L Potassium 3.4 L (3.5-5.3) mmol/L Chloride 104 (100-110) mmol/L Carbon Dioxide 29 (21-32) mmol/L BUN 11 (7-18) mg/dL Creatinine 1.2 H (0.55-1.02) mg/dL Est Cr Clr Drug Dosing 34.47 Estimated GFR (MDRD) 45 L (>60) BUN/Creatinine Ratio 9.2 (9-20) Glucose 95 (80-116) mg/dL Calcium 8.4 L (8.6-10.2) mg/dL Total Bilirubin (0.1-1.3) mg/dL AST (5-25) IU/L ALT (12-36) U/L Alkaline Phosphatase (56-112) IU/L Total Protein (6.0-8.0) g/dL Albumin (3.2-4.6) g/dL Globulin g/dL Albumin/Globulin Ratio Med Orders - Current: Current Medications Acetaminophen (Acetaminophen 650 Mg Tab.Er) 1,300 mg PO Q8H PRN PRN Reason: MODERATE/SEVERE PAIN Allopurinol (Allopurinol 300 Mg Tab *Ptom*) 300 mg PO DAILY [facility] Last Admin: 01/04/21 09:11 Dose: 300 mg Documented by: Aspirin (Aspirin 81 Mg Tab.Ec *Ptom*) 81 mg PO DAILY [facility] Last Admin: 01/04/21 09:17 Dose: 81 mg Documented by: Atorvastatin Calcium (Atorvastatin 40 Mg Tab *Ptom*) 40 mg PO DAILY [facility] Last Admin: 01/04/21 09:12 Dose: 40 mg Documented by: Calcitriol (Calcitriol 0.25 Mcg Cap *Ptom*) 0.25 mcg PO DAILY [facility] Last Admin: 01/04/21 09:13 Dose: 0.25 mcg Documented by: Clonazepam (Clonazepam 1 Mg Tab) 2 mg PO BEDTIME [facility] Last Admin: 01/03/21 21:18 Dose: 2 mg Documented by: Clopidogrel Bisulfate (Clopidogrel 75 Mg Tab *Ptom*) 75 mg PO DAILY [facility] Last Admin: 01/04/21 09:14 Dose: 75 mg Documented by: Cyanocobalamin (Cyanocobalamin (Vitamin B12) 500 Mcg Tab *Ptom*) 500 mcg PO DAILY [facility] Last Admin: 01/04/21 09:19 Dose: 500 mcg Documented by: Duloxetine HCl (Duloxetine 60 Mg Cap *Ptom*) 120 mg PO DAILY [facility] Last Admin: 01/04/21 09:14 Dose: 120 mg Documented by: Enoxaparin Sodium (Enoxaparin 40 Mg/0.4 Ml Syringe) 40 mg SUBCUT Q24H [facility] Last Admin: 01/03/21 18:12 Dose: 40 mg Documented by: Famotidine (Famotidine 20 Mg Tab *Ptom*) 20 mg PO BEDTIME [facility] Last Admin: 01/03/21 20:22 Dose: 20 mg Documented by: Folic Acid (Folic Acid 0.8 Mg Tab *Ptom*) 2.4 mg PO DAILY [facility] Last Admin: 01/04/21 09:16 Dose: 2.4 mg Documented by: Sodium Chloride (Normal Saline) 1,000 mls @ 125 mls/hr IV ASDIRECTED [facility] Last Admin: 01/04/21 09:26 Dose: 125 mls/hr Documented by: Ciprofloxacin/Dextrose 400 mg/ (Premix) 200 mls @ 200 mls/hr IV Q12H [facility] Last Admin: 01/04/21 01:46 Dose: 200 mls/hr Documented by: Mirabegron (Mirabegron 25 Mg Tab Extended Release *Ptom*) 25 mg PO DAILY [facility] Last Admin: 01/04/21 09:11 Dose: 25 mg Documented by: Aripiprazole [ Abilify] 15 Mg Tablet *Ptom* 15 mg PO DAILY [facility] Last Admin: 01/04/21 09:14 Dose: 15 mg Documented by: Calcium Citrate/ (Vitamin D3 *Ptom*) 1 tab PO DAILY [facility] Last Admin: 01/04/21 09:20 Dose: 1 tab Documented by: Probiotic Plus & (Cranberry *Ptom*) 1 cap PO DAILY [facility] Last Admin: 01/04/21 09:20 Dose: 1 cap Documented by: D-Mannose [Azo D- Mannose] 500 Mg Capsule *Ptom* 500 mg PO DAILY [facility] Last Admin: 01/04/21 09:17 Dose: 500 mg Documented by: Magnesium [Magnesium ] 250 Mg Tablet * Ptom* 250 mg PO DAILY [facility] Last Admin: 01/04/21 09:18 Dose: 250 mg Documented by: Melatonin [Melatonin ] 10 Mg Tablet *Ptom * 10 mg PO BEDTIME [facility] Last Admin: 01/03/21 20:23 Dose: 10 mg Documented by: Omeprazole [ Omeprazole] 20 Mg Capsule.Dr *Ptom* 40 mg PO DAILY [facility] Last Admin: 01/04/21 09:13 Dose: 40 mg Documented by: Caplet * (Ptom*) 1 tab PO DAILY [facility] Last Admin: 01/04/21 09:16 Dose: 1 tab Documented by: Ondansetron HCl (Ondansetron 4 Mg Tab.Dis) 4 mg PO Q4H PRN PRN Reason: Nausea/Vomiting Pantoprazole Sodium (Pantoprazole 40 Mg Tab.Cr) 40 mg PO DAILY@0600 [facility] Last Admin: 01/04/21 05:50 Dose: 40 mg Documented by: Potassium Citrate (Potassium Citrate 10 Meq Tab.Er *Ptom*) 30 meq PO DAILY [facility] Last Admin: 01/04/21 09:15 Dose: 30 meq Documented by: Sodium Chloride (Sodium Chloride 0.9% 10 Ml Syringe) 10 ml FLUSH ASDIRECTED PRN PRN Reason: Keep Vein Open Last Admin: 01/03/21 14:20 Dose: 10 ml Documented by: Tamsulosin HCl (Tamsulosin 0.4 Mg Cap.Er) 0.4 mg PO BEDTIME [facility] Last Admin: 01/03/21 21:18 Dose: 0.4 mg Documented by: Discontinued Medications Diatrizoate Meglum/Diatrizoate Sod (Diatrizoate Meglumine/Diatrizoate Sodium 37% 30 Ml Bottle) 30 ml PO . DIRECTED ONE Stop: 01/03/21 15:37 Last Admin: 01/03/21 16:25 Dose: 30 ml Documented by: Iopamidol (Iopamidol 755 Mg/Ml 75 Ml Bottle) 75 ml IV ASDIRECTED ONE Stop: 01/03/21 15:37 Last Admin: 01/03/21 16:25 Dose: 75 ml Documented by: - Exam General: Alert, Oriented ( ), Cooperative Lungs: Clear to Auscultation, Normal Respiratory Effort Cardiovascular: Regular Rate, Regular Rhythm GI/Abdominal Exam: Soft, No Distention, Guarding, Tender, Abnormal Bowel Sounds (very hyperactive BS x 4) (Female) Exam: Deferred Extremities: No Pedal Edema, Normal Capillary Refill Peripheral Pulses: 2+: Radial (L), Radial (R) Skin: Warm, Dry, Intact - Patient Data Lab Results Last 24 hrs: Laboratory Results - last 24 hr 01/03/21 01/03/21 01/04/21 Range/Units 14:10 14:10 06:50 WBC 4.0 4.0 (3.0-10.3) x10-3/uL RBC 3.71 3.50 L (3.60-5.20) x10(6)uL Hgb 11.0 L 10.6 L (11.4-15.5) g/dL Hct 33.9 L 32.4 L (34.2-48.2) % MCV 91.3 92.5 (76.7-100.5) fL MCH 29.7 30.2 (23.9-33.9) pg MCHC 32.5 32.6 (31.9-34.8) g/dL RDW 15.1 15.0 (12.3-16.5) % Plt Count 163 154 (151-488) x10(3)uL MPV 8.2 8.6 (7.1-12.4) fL Neut % (Auto) 48.7 67.0 (30.8-76.2) % Lymph % (Auto) 36.8 22.6 (18.4-52.1) % Will % (Auto) 10.4 8.0 (4.4-15.7) % Eos % (Auto) 2.9 1.8 (0.6-8.1) % Baso % (Auto) 1.2 0.6 (0.2-1.5) % Neut # (Auto) 1.9 2.7 (1.5-6.3) x10-3/uL Lymph # (Auto) 1.5 0.9 L (1.0-4.4) x10-3/uL Will # (Auto) 0.4 0.3 (0.3-1.0) x10-3/uL Eos # (Auto) 0.1 0.1 (0.0-0.8) x10-3/uL Baso # (Auto) 0.0 0.0 (0.0-0.1) x10-3/uL Sodium 141 (135-145) mmol/L Potassium 3.8 (3.5-5.3) mmol/L Chloride 104 (100-110) mmol/L Carbon Dioxide 31 (21-32) mmol/L BUN 15 (7-18) mg/dL Creatinine 1.6 H (0.55-1.02) mg/dL Est Cr Clr Drug Dosing TNP Estimated GFR (MDRD) 33 L (>60) BUN/Creatinine Ratio 9.4 (9-20) Glucose 98 (80-116) mg/dL Calcium 8.5 L (8.6-10.2) mg/dL Total Bilirubin 0.4 (0.1-1.3) mg/dL AST 132 H D (5-25) IU/L ALT 141 H D (12-36) U/L Alkaline Phosphatase 90 (56-112) IU/L Total Protein 6.7 (6.0-8.0) g/dL Albumin 3.0 L (3.2-4.6) g/dL Globulin 3.7 g/dL Albumin/Globulin Ratio 0.8 /20/21 Range/Units 06:50 WBC (3.0-10.3) x10-3/uL RBC (3.60-5.20) x10(6)uL Hgb (11.4-15.5) g/dL Hct (34.2-48.2) % MCV (76.7-100.5) fL MCH (23.9-33.9) pg MCHC (31.9-34.8) g/dL RDW (12.3-16.5) % Plt Count (151-488) x10(3)uL MPV (7.1-12.4) fL Neut % (Auto) (30.8-76.2) % Lymph % (Auto) (18.4-52.1) % Will % (Auto) (4.4-15.7) % Eos % (Auto) (0.6-8.1) % Baso % (Auto) (0.2-1.5) % Neut # (Auto) (1.5-6.3) x10-3/uL Lymph # (Auto) (1.0-4.4) x10-3/uL Will # (Auto) (0.3-1.0) x10-3/uL Eos # (Auto) (0.0-0.8) x10-3/uL Baso # (Auto) (0.0-0.1) x10-3/uL Sodium 140 (135-145) mmol/L Potassium 3.4 L (3.5-5.3) mmol/L Chloride 104 (100-110) mmol/L Carbon Dioxide 29 (21-32) mmol/L BUN 11 (7-18) mg/dL Creatinine 1.2 H (0.55-1.02) mg/dL Est Cr Clr Drug Dosing 34.47 Estimated GFR (MDRD) 45 L (>60) BUN/Creatinine Ratio 9.2 (9-20) Glucose 95 (80-116) mg/dL Calcium 8.4 L (8.6-10.2) mg/dL Total Bilirubin (0.1-1.3) mg/dL AST (5-25) IU/L ALT (12-36) U/L Alkaline Phosphatase (56-112) IU/L Total Protein (6.0-8.0) g/dL Albumin (3.2-4.6) g/dL Globulin g/dL Albumin/Globulin Ratio Result Diagrams: 01/04/21 06:50 01/04/21 06:50 Sepsis Event Note - Evaluation Sepsis Screening Result: No Definite Risk - Focused Exam Vital Signs: Vital Signs Temp Pulse Resp BP Pulse Ox 01/04/21 06:00 98.1 F 88 18 122/82 97 01/04/21 02:00 98.4 F 89 18 112/64 97 - Problem List & Annotations (1) Salmonella gastroenteritis SNOMED Code(s): 96216365 Code(s): A02.0 - SALMONELLA ENTERITIS Status: Acute Current Visit: No (2) Dehydration SNOMED Code(s): 07834057 Code(s): E86.0 - DEHYDRATION Status: Acute Current Visit: No (3) Personal history of immunosupression therapy SNOMED Code(s): 437944085 Code(s): Z92.25 - PERSONAL HISTORY OF IMMUNOSUPPRESSION THERAPY Status: Acute Current Visit: Yes Annotation/Comment:: On Cosentyx for Ankylosing spondylitis (4) 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 SNOMED Code(s): 867213617 Code(s): Z98.84 - BARIATRIC SURGERY STATUS Status: Chronic Current Visit: Yes (5) CKD (chronic kidney disease) SNOMED Code(s): 145774848 Code(s): N18.9 - CHRONIC KIDNEY DISEASE, UNSPECIFIED Status: Chronic Current Visit: No (6) Hypertension SNOMED Code(s): 48010900 Code(s): I10 - ESSENTIAL (PRIMARY) HYPERTENSION Status: Chronic Current Visit: Yes (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 SNOMED Code(s): 621629077 Code(s): I25.10 - ATHSCL HEART DISEASE OF [place] CORONARY ARTERY W/O ANG PCTRS Status: Chronic Current Visit: Yes (8) Generalized anxiety disorder SNOMED Code(s): 15499034 Code(s): F41.1 - GENERALIZED ANXIETY DISORDER Status: Chronic Current Visit: Yes (9) Major depressive disorder, recurrent episode, mild SNOMED Code(s): 365126511, 165582964, 273053097 Code(s): F33.0 - MAJOR DEPRESSIVE DISORDER, RECURRENT, MILD Status: Chronic Current Visit: Yes (10) GERD (gastroesophageal reflux disease) SNOMED Code(s): 004536536 Code(s): K21.9 - GASTRO-ESOPHAGEAL REFLUX DISEASE WITHOUT ESOPHAGITIS Status: Chronic Current Visit: Yes (11) Ankylosing spondylitis SNOMED Code(s): 3140140 Code(s): M45.9 - ANKYLOSING SPONDYLITIS OF UNSPECIFIED SITES IN SPINE Status: Chronic Current Visit: Yes Annotation/Comment:: on Cosentyx (12) Presence of implanted infusion pump SNOMED Code(s): 876940877, 617205425 Code(s): Z95.828 - PRESENCE OF OTHER VASCULAR IMPLANTS AND GRAFTS Status: Chronic Current Visit: Yes Annotation/Comment:: for Sacroiliitis (13) Sacroiliitis SNOMED Code(s): 81835836 Code(s): M46.1 - SACROILIITIS, NOT ELSEWHERE CLASSIFIED Status: Chronic Current Visit: Yes - Problem List Review Problem List Initiated/Reviewed/Updated: Yes - My Orders Last 24 Hours: My Active Orders 01/03/21 13:38 Patient Status [ADT] Routine Oxygen Therapy [RC] PRN Up ad Eveline [RC] ASDIRECTED Vital Signs [RC] Q4H Abdomen Pelvis w Cont [CT] Urgent Ondansetron [Zofran ODT] 4 mg PO Q4H PRN Sodium Chloride 0.9% [Saline Flush] 10 ml FLUSH ASDIRECTED PRN Blood Culture x2 Reflex Set [OM.PC] Urgent Peripheral IV Insertion Adult [OM.PC] Routine Resuscitation Status Routine 01/03/21 13:39 Antiembolic Hose [OM.PC] Per Unit Routine 01/03/21 13:45 Sodium Chloride 0.9% [Normal Saline] 1,000 ml IV ASDIRECTED 01/03/21 13:47 Isolation [COMM] Routine 01/03/21 14:10 CULTURE BLOOD [BC] Urgent CULTURE BLOOD [BC] Urgent 01/03/21 14:15 Ciprofloxacin in D5W [Cipro in D5W 400 MG/200 ML] 400 mg Premix Bag 1 bag IV Q12H 01/03/21 15:30 Enoxaparin [Lovenox] 40 mg SUBCUT Q24H 01/03/21 15:52 Acetaminophen [Tylenol Arthritis Pain] 1,300 mg PO Q8H PRN 01/03/21 Dinner Regular Diet [DIET] 01/03/21 17:19 Strain Urine [RC] ASDIRECTED 01/03/21 21:00 ClonazePAM [KlonoPIN] 2 mg PO BEDTIME Famotidine [Pepcid] 20 mg PO BEDTIME Melatonin [Melatonin] 10 mg PO BEDTIME Tamsulosin [Flomax] 0.4 mg PO BEDTIME 01/04/21 06:00 Pantoprazole [ProTONIX] 40 mg PO DAILY@0600 01/04/21 09:00 ARIPiprazole [Abilify] 15 mg PO DAILY Aspirin [Halfprin] 81 mg PO DAILY Calcium Citrate/Vitamin D3 [Calcium Citrate - Vit D Caplet] 1 tab PO DAILY Clopidogrel [Plavix] 75 mg PO DAILY Cran/C/B.coag/Fos/L.acid/L.rha [Probiotic Plus & Cranberry Cap] 1 cap PO DAILY Cyanocobalamin (Vitamin B12) [Vitamin B12] 500 mcg PO DAILY D-Mannose [Azo D-Mannose] 500 mg PO DAILY DULoxetine [Cymbalta] 120 mg PO DAILY Folic Acid 2.4 mg PO DAILY Magnesium [Magnesium] 250 mg PO DAILY Mirabegron [Myrbetriq] 25 mg PO DAILY Omeprazole [Omeprazole] 40 mg PO DAILY Pnv No.95/Ferrous Fum/Folic AC [ Caplet] 1 tab PO DAILY Potassium Citrate 30 meq PO DAILY allopurinoL [Zyloprim] 300 mg PO DAILY atorvaSTATin [Lipitor] 40 mg PO DAILY calcitrioL [Rocaltrol] 0.25 mcg PO DAILY - Plan Plan:: 1. Salmonella gastroenteritis: Ciprofloxacin 400 mg IV q12h day 2. Since she is on Consentyx, would treat for [address] showed infectious colitis and multiple stone varying in size from few 1 mm stones, a 5 mm stone and most proximal a 9 mm stone. She had lithotripsy a few months ago and states she didn't think she passed any. Enteric isolation. 2. Multiple kidney stones, with hydronephrosis: Flomax 0.4 mg daily. NS at 125 ml/hr. Consult nephrology, pain controlled. 3. Dehydration/hypokalemia: NS at 125 ml/hr to keep up with profuse diarrhea. On potassium citrate 30 mEq daily, will keep this dose for now and if she drops further then will increased to bid. 4. Disposition: anticipate discharge once diarrhea slows and pt can maintain hydration. Adjust treatments as necessary.
[2021-01-04] MEDS: Enoxaparin 40 MG/0.4 ML Syringe SUBCUT SCH (16:23)
[2021-01-04] MEDS: Acetaminophen 650 MG Tab.ER PO PRN (16:24)
[2021-01-04] MEDS: Ondansetron 4 MG Tab.DIS PO PRN ×2 (16:31→21:07)
[2021-01-04] MEDS: CLONAZEPAM 1 MG PO SCH (21:03)
[2021-01-04] MEDS: MELATONIN 10 MG PO SCH (21:04)
[2021-01-04] MEDS: Famotidine 20 MG Tab PO SCH (21:05)
[2021-01-04] MEDS: Tamsulosin 0.4 MG Cap.ER PO SCH (21:10)
[2021-01-05] MEDS: Ciprofloxacin in D5W 400 MG in Premix Bag 1 BAG IV SCH ×4 (01:37→13:57)
[2021-01-05] MEDS: Pantoprazole 40 MG Tab.CR PO SCH (05:12)
[2021-01-05] MEDS: Sodium Chloride 0.9% 1,000 ML IV SCH ×3 (05:14→22:18)
[2021-01-05] MEDS: Potassium Citrate 10 MEQ Tab.ER PO SCH (09:28)
[2021-01-05] MEDS: Allopurinol 300 MG Tab PO SCH (09:29)
[2021-01-05] MEDS: ARIPIPRAZOLE 15 MG PO SCH (09:30)
[2021-01-05] MEDS: Clopidogrel 75 MG Tab PO SCH (09:30)
[2021-01-05] MEDS: Calcitriol 0.25 MCG Cap PO SCH (09:31)
[2021-01-05] MEDS: D MANNOSE 500 MG PO SCH (09:32)
[2021-01-05] MEDS: VITAMIN D3 PO SCH (09:32)
[2021-01-05] MEDS: CALCIUM CITRATE PO SCH (09:32)
[2021-01-05] MEDS: Mirabegron 25 MG Tab Extended Release PO SCH (09:33)
[2021-01-05] MEDS: OMEPRAZOLE 20 MG PO SCH (09:34)
[2021-01-05] MEDS: Aspirin 81 MG Tab.EC PO SCH (09:35)
[2021-01-05] MEDS: DULoxetine 60 MG Cap PO SCH (09:36)
[2021-01-05] MEDS: MAGNESIUM 250 MG PO SCH (09:36)
[2021-01-05] MEDS: Folic Acid 0.8 MG Tab PO SCH (09:37)
[2021-01-05] MEDS: PRENATAL PO SCH (09:37)
[2021-01-05] MEDS: CYANOCOBALAMIN 500 MCG PO SCH (09:38)
[2021-01-05] MEDS: CRANBERRY PO SCH (09:38)
[2021-01-05] MEDS: [UNRECOGNIZED DRUG - OTHER] PO SCH (09:38)
[2021-01-05] MEDS: atorvaSTATin 40 MG Tab PO SCH (09:38)
--- NOTE | 2021-01-05 11:00 | PCM.PN ---
- General Info Date of Service: 01/05/21 Subjective Update: Samina reports still having a lot of stool, nurses reported that 4 loose stools. NO fevers. Having more pain on left flank. - Patient Data Vitals - Most Recent: Last Vital Signs Temp 97.6 F 01/05/21 05:58 Pulse 75 01/05/21 05:58 Resp 20 01/05/21 05:58 BP 109/67 01/05/21 05:58 Pulse Ox 97 01/05/21 05:58 Weight - Most Recent: 177 lb 6 oz I&O - Last 24 Hours: Intake & Output 01/04/21 01/05/21 01/05/21 22:59 06:59 14:59 Intake Total 1305 1089 Balance 1305 1089 Lab Results Last 24 Hours: Laboratory Results - last 24 hr 01/05/21 Range/Units 06:10 Sodium 141 (135-145) mmol/L Potassium 3.7 (3.5-5.3) mmol/L Chloride 108 (100-110) mmol/L Carbon Dioxide 27 (21-32) mmol/L BUN 7 (7-18) mg/dL Creatinine 1.3 H (0.55-1.02) mg/dL Est Cr Clr Drug Dosing 31.82 mL/min Estimated GFR (MDRD) 41 L (>60) BUN/Creatinine Ratio 5.4 L (9-20) Glucose 97 (80-116) mg/dL Calcium 8.2 L (8.6-10.2) mg/dL Magnesium 1.7 L (1.8-2.5) mg/dL Gerard Results Last 24 Hours: Microbiology 01/03/21 14:10 Aerobic Blood Culture - Preliminary Blood - Venous - Lab Draw NO GROWTH AFTER 1 DAY Anaerobic Blood Culture - Preliminary NO GROWTH AFTER 1 DAY 01/03/21 14:10 Aerobic Blood Culture - Preliminary Blood - Venous NO GROWTH AFTER 1 DAY Anaerobic Blood Culture - Preliminary NO GROWTH AFTER 1 DAY Med Orders - Current: Current Medications Acetaminophen (Acetaminophen 650 Mg Tab.Er) 1,300 mg PO Q8H PRN PRN Reason: MODERATE/SEVERE PAIN Last Admin: 01/04/21 16:24 Dose: 1,300 mg Documented by: Allopurinol (Allopurinol 300 Mg Tab *Ptom*) 300 mg PO DAILY CORNELIUS Last Admin: 01/05/21 09:29 Dose: 300 mg Documented by: Aspirin (Aspirin 81 Mg Tab.Ec *Ptom*) 81 mg PO DAILY COUNTS INCLUDE 234 BEDS AT THE [facility] Last Admin: 01/05/21 09:35 Dose: 81 mg Documented by: Atorvastatin Calcium (Atorvastatin 40 Mg Tab *Ptom*) 40 mg PO DAILY COUNTS INCLUDE 234 BEDS AT THE [facility] Last Admin: 01/05/21 09:38 Dose: 40 mg Documented by: Calcitriol (Calcitriol 0.25 Mcg Cap *Ptom*) 0.25 mcg PO DAILY COUNTS INCLUDE 234 BEDS AT THE [facility] Last Admin: 01/05/21 09:31 Dose: 0.25 mcg Documented by: Clonazepam (Clonazepam 1 Mg TabOwn Med) 2 mg PO BEDTIME COUNTS INCLUDE 234 BEDS AT THE [facility] Last Admin: 01/04/21 21:03 Dose: 2 mg Documented by: Clopidogrel Bisulfate (Clopidogrel 75 Mg Tab *Ptom*) 75 mg PO DAILY COUNTS INCLUDE 234 BEDS AT THE [facility] Last Admin: 01/05/21 09:30 Dose: 75 mg Documented by: Cyanocobalamin (Cyanocobalamin (Vitamin B12) 500 Mcg Tab *Ptom*) 500 mcg PO DAILY COUNTS INCLUDE 234 BEDS AT THE [facility] Last Admin: 01/05/21 09:38 Dose: 500 mcg Documented by: Duloxetine HCl (Duloxetine 60 Mg Cap *Ptom*) 120 mg PO DAILY COUNTS INCLUDE 234 BEDS AT THE [facility] Last Admin: 01/05/21 09:36 Dose: 120 mg Documented by: Enoxaparin Sodium (Enoxaparin 40 Mg/0.4 Ml Syringe) 40 mg SUBCUT Q24H COUNTS INCLUDE 234 BEDS AT THE [facility] Last Admin: 01/04/21 16:23 Dose: 40 mg Documented by: Famotidine (Famotidine 20 Mg Tab *Ptom*) 20 mg PO BEDTIME COUNTS INCLUDE 234 BEDS AT THE [facility] Last Admin: 01/04/21 21:05 Dose: 20 mg Documented by: Folic Acid (Folic Acid 0.8 Mg Tab *Ptom*) 2.4 mg PO DAILY COUNTS INCLUDE 234 BEDS AT THE [facility] Last Admin: 01/05/21 09:37 Dose: 2.4 mg Documented by: Sodium Chloride (Normal Saline) 1,000 mls @ 125 mls/hr IV ASDIRECTED COUNTS INCLUDE 234 BEDS AT THE [facility] Last Admin: 01/05/21 05:14 Dose: 125 mls/hr Documented by: Ciprofloxacin/Dextrose 400 mg/ (Premix) 200 mls @ 200 mls/hr IV Q12H COUNTS INCLUDE 234 BEDS AT THE [facility] Last Admin: 01/05/21 01:37 Dose: 200 mls/hr Documented by: Mirabegron (Mirabegron 25 Mg Tab Extended Release *Ptom*) 25 mg PO DAILY COUNTS INCLUDE 234 BEDS AT THE [facility] Last Admin: 01/05/21 09:33 Dose: 25 mg Documented by: Aripiprazole [ Abilify] 15 Mg Tablet *Ptom* 15 mg PO DAILY COUNTS INCLUDE 234 BEDS AT THE [facility] Last Admin: 01/05/21 09:30 Dose: 15 mg Documented by: Calcium Citrate/ (Vitamin D3 *Ptom*) 1 tab PO DAILY COUNTS INCLUDE 234 BEDS AT THE [facility] Last Admin: 01/05/21 09:32 Dose: 1 tab Documented by: Probiotic Plus & (Cranberry *Ptom*) 1 cap PO DAILY COUNTS INCLUDE 234 BEDS AT THE [facility] Last Admin: 01/05/21 09:38 Dose: 1 cap Documented by: D-Mannose [Azo D- Mannose] 500 Mg Capsule *Ptom* 500 mg PO DAILY COUNTS INCLUDE 234 BEDS AT THE [facility] Last Admin: 01/05/21 09:32 Dose: 500 mg Documented by: Magnesium [Magnesium ] 250 Mg Tablet * Ptom* 250 mg PO DAILY COUNTS INCLUDE 234 BEDS AT THE [facility] Last Admin: 01/05/21 09:36 Dose: 250 mg Documented by: Melatonin [Melatonin ] 10 Mg Tablet *Ptom * 10 mg PO BEDTIME COUNTS INCLUDE 234 BEDS AT THE [facility] Last Admin: 01/04/21 21:04 Dose: 10 mg Documented by: Omeprazole [ Omeprazole] 20 Mg Capsule. *Ptom* 40 mg PO DAILY COUNTS INCLUDE 234 BEDS AT THE [facility] Last Admin: 01/05/21 09:34 Dose: 40 mg Documented by: George Caplet * (Ptom*) 1 tab PO DAILY COUNTS INCLUDE 234 BEDS AT THE [facility] Last Admin: 01/05/21 09:37 Dose: 1 tab Documented by: Ondansetron HCl (Ondansetron 4 Mg Tab.Dis) 4 mg PO Q4H PRN PRN Reason: Nausea/Vomiting Last Admin: 01/04/21 21:07 Dose: 4 mg Documented by: Pantoprazole Sodium (Pantoprazole 40 Mg Tab.Cr) 40 mg PO DAILY@0600 COUNTS INCLUDE 234 BEDS AT THE [facility] Last Admin: 01/05/21 05:12 Dose: 40 mg Documented by: Potassium Citrate (Potassium Citrate 10 Meq Tab.Er *Ptom*) 30 meq PO DAILY COUNTS INCLUDE 234 BEDS AT THE [facility] Last Admin: 01/05/21 09:28 Dose: 30 meq Documented by: Sodium Chloride (Sodium Chloride 0.9% 10 Ml Syringe) 10 ml FLUSH ASDIRECTED PRN PRN Reason: Keep Vein Open Last Admin: 01/03/21 14:20 Dose: 10 ml Documented by: Tamsulosin HCl (Tamsulosin 0.4 Mg Cap.Er) 0.4 mg PO BEDTIME CORNELIUS Last Admin: 01/04/21 21:10 Dose: 0.4 mg Documented by: Discontinued Medications Clonazepam (Clonazepam 1 Mg Tab) 2 mg PO BEDTIME CORNELIUS Last Admin: 01/03/21 21:18 Dose: 2 mg Documented by: Diatrizoate Meglum/Diatrizoate Sod (Diatrizoate Meglumine/Diatrizoate Sodium 37% 30 Ml Bottle) 30 ml PO . DIRECTED ONE Stop: 01/03/21 15:37 Last Admin: 01/03/21 16:25 Dose: 30 ml Documented by: Iopamidol (Iopamidol 755 Mg/Ml 75 Ml Bottle) 75 ml IV ASDIRECTED ONE Stop: 01/03/21 15:37 Last Admin: 01/03/21 16:25 Dose: 75 ml Documented by: - Exam General: Alert, Oriented, Cooperative Lungs: Clear to Auscultation, Normal Respiratory Effort Cardiovascular: Regular Rate, Regular Rhythm GI/Abdominal Exam: Soft, No Distention, Guarding, Tender (LLQ), Abnormal Bowel Sounds (hyperactive BS x 4). No: Rigid, Rebound Back Exam: CVA Tenderness (L) Extremities: No Pedal Edema Peripheral Pulses: 2+: Radial (L), Radial (R), Posterior Tibial (L), Posterior Tibial (R), Dorsalis Pedis (L), Dorsalis Pedis (R) Skin: Warm, Dry, Intact - Patient Data Lab Results Last 24 hrs: Laboratory Results - last 24 hr 01/05/21 Range/Units 06:10 Sodium 141 (135-145) mmol/L Potassium 3.7 (3.5-5.3) mmol/L Chloride 108 (100-110) mmol/L Carbon Dioxide 27 (21-32) mmol/L BUN 7 (7-18) mg/dL Creatinine 1.3 H (0.55-1.02) mg/dL Est Cr Clr Drug Dosing 31.82 mL/min Estimated GFR (MDRD) 41 L (>60) BUN/Creatinine Ratio 5.4 L (9-20) Glucose 97 (80-116) mg/dL Calcium 8.2 L (8.6-10.2) mg/dL Magnesium 1.7 L (1.8-2.5) mg/dL Result Diagrams: 01/04/21 06:50 01/05/21 06:10 Gerard Results Last 24 hrs: Microbiology 01/03/21 14:10 Aerobic Blood Culture - Preliminary Blood - Venous - Lab Draw NO GROWTH AFTER 1 DAY Anaerobic Blood Culture - Preliminary NO GROWTH AFTER 1 DAY 01/03/21 14:10 Aerobic Blood Culture - Preliminary Blood - Venous NO GROWTH AFTER 1 DAY Anaerobic Blood Culture - Preliminary NO GROWTH AFTER 1 DAY Sepsis Event Note - Evaluation Sepsis Screening Result: No Definite Risk - Focused Exam Vital Signs: Vital Signs Temp Pulse Resp BP Pulse Ox 01/05/21 05:58 97.6 F 75 20 109/67 97 01/05/21 01:47 18 - Problem List & Annotations (1) Salmonella gastroenteritis SNOMED Code(s): 66086985 Code(s): A02.0 - SALMONELLA ENTERITIS Status: Acute Current Visit: No (2) Dehydration SNOMED Code(s): 57148493 Code(s): E86.0 - DEHYDRATION Status: Acute Current Visit: No Annotation/Comment:: improving, Cr 1.3. (3) Personal history of immunosupression therapy SNOMED Code(s): 054554358 Code(s): Z92.25 - PERSONAL HISTORY OF IMMUNOSUPPRESSION THERAPY Status: Acute Current Visit: Yes Annotation/Comment:: On Cosentyx for Ankylosing spondylitis (4) 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 SNOMED Code(s): 042508487 Code(s): Z98.84 - BARIATRIC SURGERY STATUS Status: Chronic Current Visit: Yes (5) CKD (chronic kidney disease) SNOMED Code(s): 918111923 Code(s): N18.9 - CHRONIC KIDNEY DISEASE, UNSPECIFIED Status: Chronic Current Visit: No Annotation/Comment:: Cr 1.3 (6) Hypertension SNOMED Code(s): 01280656 Code(s): I10 - ESSENTIAL (PRIMARY) HYPERTENSION Status: Chronic Current Visit: Yes (7) Atherosclerotic heart disease of [place] coronary artery without angina pectoris SNOMED Code(s): 817845781 Code(s): I25.10 - ATHSCL HEART DISEASE OF [place] CORONARY ARTERY W/O ANG PCTRS Status: Chronic Current Visit: Yes (8) Generalized anxiety disorder SNOMED Code(s): 24987948 Code(s): F41.1 - GENERALIZED ANXIETY DISORDER Status: Chronic Current Vi sit: Yes (9) Major depressive disorder, recurrent episode, mild SNOMED Code(s): 396449443, 800196025, 324582417 Code(s): F33.0 - MAJOR DEPRESSIVE DISORDER, RECURRENT, MILD Status: Chronic Current Visit: Yes (10) GERD (gastroesophageal reflux disease) SNOMED Code(s): 017817156 Code(s): K21.9 - GASTRO-ESOPHAGEAL REFLUX DISEASE WITHOUT ESOPHAGITIS Status: Chronic Current Visit: Yes (11) Ankylosing spondylitis SNOMED Code(s): 0037119 Code(s): M45.9 - ANKYLOSING SPONDYLITIS OF UNSPECIFIED SITES IN SPINE Status: Chronic Current Visit: Yes Annotation/Comment:: on Cosentyx (12) Presence of implanted infusion pump SNOMED Code(s): 135178283, 988728677 Code(s): Z95.828 - PRESENCE OF OTHER VASCULAR IMPLANTS AND GRAFTS Status: Chronic Current Visit: Yes Annotation/Comment:: for Sacroiliitis (13) Sacroiliitis SNOMED Code(s): 10724921 Code(s): M46.1 - SACROILIITIS, NOT ELSEWHERE CLASSIFIED Status: Chronic Current Visit: Yes - Problem List Review Problem List Initiated/Reviewed/Updated: Yes - My Orders Last 24 Hours: My Active Orders 01/04/21 21:00 ClonazePAM [KlonoPIN] 2 mg PO BEDTIME - Plan Plan:: 1. Salmonella gastroenteritis: Ciprofloxacin 400 mg IV q12h day 3. Since she is on Consentyx, would treat for [address] showed infectious colitis and multiple stone varying in size from few 1 mm stones, a 5 mm stone and most proximal a 9 mm stone. She had lithotripsy a few months ago and states she didn't think she passed any. Enteric isolation. 2. Multiple kidney stones, with hydronephrosis: Flomax 0.4 mg daily. NS at 125 ml/hr. Consult nephrology, pain controlled. 3. Dehydration/hypokalemia: NS at 125 ml/hr to keep up with profuse diarrhea. On potassium citrate 30 mEq daily, K 3.7 today. Mag 1.7, on magnesium at home which was continued for her stay. 4. Disposition: Will discuss with urology since she has been having more pain in left flank secondary to stones. Adjust treatments as necessary.
[2021-01-05] MEDS: Enoxaparin 40 MG/0.4 ML Syringe SUBCUT SCH (15:56)
[2021-01-05] MEDS: Tamsulosin 0.4 MG Cap.ER PO SCH (20:33)
[2021-01-05] MEDS: Ondansetron 4 MG Tab.DIS PO PRN (20:33)
[2021-01-05] MEDS: CLONAZEPAM 1 MG PO SCH (20:34)
[2021-01-05] MEDS: MELATONIN 10 MG PO SCH (20:35)
[2021-01-05] MEDS: Famotidine 20 MG Tab PO SCH (20:36)
[2021-01-06] MEDS: Acetaminophen 650 MG Tab.ER PO PRN ×2 (01:31→15:49)
[2021-01-06] MEDS: Ciprofloxacin in D5W 400 MG in Premix Bag 1 BAG IV SCH ×2 (01:35)
[2021-01-06] MEDS: Pantoprazole 40 MG Tab.CR PO SCH (05:09)
--- NOTE | 2021-01-06 06:57 | CT ---
CT ABDOMEN AND PELVIS WITH CONTRAST TECHNIQUE Spiral 3.75 mm axial sections were obtained through the abdomen and pelvis with oral and IV contrast (75 mL Isovue-370 at 2 mL/second) with sagittal and coronal reconstructions, 01/03/21 and compared with 05/14/20. 100 second and four-minute delayed images were obtained. TOTAL EXAM DLP: 2360.31 mGy/cm. FINDINGS There is some patchy minimal infiltrate at the lung bases, which could be fibrotic in nature, or possibly related to minimal patchy pneumonia and/or minimal subsegmental atelectasis. No gross consolidating pneumonia or pleural effusion was seen. The heart remains normal in size. No pericardial effusion is seen. A probable tiny cyst is noted in the mid right liver lobe, unchanged from the previous study. The liver was otherwise unremarkable. The gallbladder is absent, compatible with history of its removal. A clip is noted near the cystic duct. The common bile duct was not grossly enlarged, allowing for the postcholecystectomy status. The pancreas was diminutive, with no other abnormality identified. The spleen and adrenal glands appeared normal. Evidence of gastric bypass surgery is noted. A tiny cyst is noted exophytically off the midpole of the right kidney, present previously and unchanged, with the right kidney otherwise unremarkable. The left kidney showed evidence of a midpole calculus of moderate size, with minimal prominence of the renal pelvis. There is a large calculus in the proximal left ureter, which measured 9.9 mm. The more distal left ureter also showed evidence of calcifications - multiple. The largest of which measured approximately 6 mm. Additional calculi are present extending to the ureterovesical junction on the left. Findings are compatible with multiple ureteral calculi on the left, but producing obstructing uropathy. Detail of the lower pelvis was limited by a total hip arthroplasty on the left due to hard beam artifact. As visualized, the urinary bladder appeared normal with no definite calculi within it. Multiple air-fluid levels are noted in the colon, which is mildly prominent in caliber, raising question of paralytic ileus. Air-fluid levels are noted extending into the rectum. Findings may represent colitis, possibly infectious. No definite bowel obstruction, free air or abscess formation was identified. No additional mass lesions, organomegaly, free fluid collections or significant herniation could be identified. Calcifications are noted in the abdominal aorta, splenic, iliac and femoral arteries. No retroperitoneal mass was seen. IMPRESSION 1. Mildly prominent caliber of the colon in general with air-fluid levels throughout, including the rectum, suggesting colitis, possibly infectious, possibly with paralytic ileus to some degree. 2. Obstructive uropathy on the left due to multiple calculi within the left ureter of varying sizes, as noted above. 3. ASD. 4. . Minimal densities in the lower lung lira, which may be subsegmental atelectatic in nature, although minimal patchy pneumonia is difficult to entirely exclude. 5. Appendix is not visualized. 6. Post hysterectomy status. 7. Post gastric bypass. 8. Post cholecystectomy. 9. Renal calcinosis on the left. 10. Tiny, probable simple cyst right lobe of the liver. 11. Hypertrophic degenerative changes and disc disease in the lumbosacral spine with fusion at L5-S1. Report was called to Dr. Merida at 1716 hours. [facility]
[2021-01-06] MEDS: Sodium Chloride 0.9% 1,000 ML IV SCH (07:40)
[2021-01-06] MEDS: VITAMIN D3 PO SCH (08:20)
[2021-01-06] MEDS: CALCIUM CITRATE PO SCH (08:20)
[2021-01-06] MEDS: CRANBERRY PO SCH (08:20)
[2021-01-06] MEDS: ARIPIPRAZOLE 15 MG PO SCH (08:20)
[2021-01-06] MEDS: [UNRECOGNIZED DRUG - OTHER] PO SCH (08:20)
[2021-01-06] MEDS: Folic Acid 0.8 MG Tab PO SCH (08:21)
[2021-01-06] MEDS: D MANNOSE 500 MG PO SCH (08:21)
[2021-01-06] MEDS: DULoxetine 60 MG Cap PO SCH (08:21)
[2021-01-06] MEDS: Aspirin 81 MG Tab.EC PO SCH (08:21)
[2021-01-06] MEDS: atorvaSTATin 40 MG Tab PO SCH (08:22)
[2021-01-06] MEDS: MAGNESIUM 250 MG PO SCH (08:22)
[2021-01-06] MEDS: Potassium Citrate 10 MEQ Tab.ER PO SCH (08:23)
[2021-01-06] MEDS: Clopidogrel 75 MG Tab PO SCH (08:23)
[2021-01-06] MEDS: Mirabegron 25 MG Tab Extended Release PO SCH (08:23)
[2021-01-06] MEDS: PRENATAL PO SCH (08:23)
[2021-01-06] MEDS: OMEPRAZOLE 20 MG PO SCH (08:23)
[2021-01-06] MEDS: Calcitriol 0.25 MCG Cap PO SCH (08:24)
[2021-01-06] MEDS: Allopurinol 300 MG Tab PO SCH (08:24)
[2021-01-06] MEDS: CYANOCOBALAMIN 500 MCG PO SCH (08:24)
[2021-01-06] MEDS ORDERED: Ciprofloxacin 500 MG Tab PO SCH (12:00)
[2021-01-06] MEDS: Enoxaparin 40 MG/0.4 ML Syringe SUBCUT SCH (15:50)
--- NOTE | 2021-01-06 16:17 | PCM.PN ---
- General Info Date of Service: 01/06/21 Subjective Update: Spoke with Dr Lange yesterday, would have her follow up with Dr Adams at earlier than Jan 28, pt on cancelation list to get earlier appt. She states no BM overnight, had soft stool this morning but then watery stool this afternoon. Switched to orals today. No fevers, pain in her flank is same as yesterday. - Patient Data Vitals - Most Recent: Last Vital Signs Temp 97.4 F 01/06/21 15:27 Pulse 72 01/06/21 15:27 Resp 16 01/06/21 15:27 BP 137/80 01/06/21 15:27 Pulse Ox 96 01/06/21 15:27 Weight - Most Recent: 177 lb 6 oz I&O - Last 24 Hours: Intake & Output 01/06/21 01/06/21 01/06/21 06:59 14:59 22:59 Intake Total 1480 Balance 1480 Lab Results Last 24 Hours: Laboratory Results - last 24 hr 01/06/21 01/06/21 Range/Units 06:45 06:45 WBC 3.6 (3.0-10.3) x10-3/uL RBC 3.32 L (3.60-5.20) x10(6)uL Hgb 10.2 L (11.4-15.5) g/dL Hct 31.1 L (34.2-48.2) % MCV 93.7 (76.7-100.5) fL MCH 30.6 (23.9-33.9) pg MCHC 32.7 (31.9-34.8) g/dL RDW 15.3 (12.3-16.5) % Plt Count 133 L (151-488) x10(3)uL MPV 8.7 (7.1-12.4) fL Neut % (Auto) 46.1 (30.8-76.2) % Lymph % (Auto) 38.7 (18.4-52.1) % [facility] % (Auto) 10.5 (4.4-15.7) % Eos % (Auto) 3.9 (0.6-8.1) % Baso % (Auto) 0.8 (0.2-1.5) % Neut # (Auto) 1.7 (1.5-6.3) x10-3/uL Lymph # (Auto) 1.4 (1.0-4.4) x10-3/uL [facility] # (Auto) 0.4 (0.3-1.0) x10-3/uL Eos # (Auto) 0.1 (0.0-0.8) x10-3/uL Baso # (Auto) 0.0 (0.0-0.1) x10-3/uL Sodium 141 (135-145) mmol/L Potassium 4.1 (3.5-5.3) mmol/L Chloride 109 (100-110) mmol/L Carbon Dioxide 28 (21-32) mmol/L BUN 6 L (7-18) mg/dL Creatinine 1.3 H (0.55-1.02) mg/dL Est Cr Clr Drug Dosing 31.82 mL/min Estimated GFR (MDRD) 41 L (>60) BUN/Creatinine Ratio 4.6 L (9-20) Glucose 92 (80-116) mg/dL Calcium 8.3 L (8.6-10.2) mg/dL Gerard Results Last 24 Hours: Microbiology 01/03/21 14:10 Aerobic Blood Culture - Preliminary Blood - Venous - Lab Draw NO GROWTH AFTER 3 DAYS Anaerobic Blood Culture - Preliminary NO GROWTH AFTER 3 DAYS 01/03/21 14:10 Aerobic Blood Culture - Preliminary Blood - Venous NO GROWTH AFTER 3 DAYS Anaerobic Blood Culture - Preliminary NO GROWTH AFTER 3 DAYS Med Orders - Current: Current Medications Acetaminophen (Acetaminophen 650 Mg Tab.Er) 1,300 mg PO Q8H PRN PRN Reason: MODERATE/SEVERE PAIN Last Admin: 01/06/21 15:49 Dose: 1,300 mg Documented by: Allopurinol (Allopurinol 300 Mg Tab) 300 mg PO DAILY [facility] Last Admin: 01/06/21 08:24 Dose: 300 mg Documented by: Aripiprazole (Aripiprazole 5 Mg Tab) 15 mg PO DAILY [facility] Aspirin (Aspirin 81 Mg Tab.Ec) 81 mg PO DAILY [facility] Last Admin: 01/06/21 08:21 Dose: 81 mg Documented by: Atorvastatin Calcium (Atorvastatin 40 Mg Tab) 40 mg PO DAILY [facility] Last Admin: 01/06/21 08:22 Dose: 40 mg Documented by: Calcitriol (Calcitriol 0.25 Mcg Cap) 0.25 mcg PO DAILY [facility] Last Admin: 01/06/21 08:24 Dose: 0.25 mcg Documented by: Ciprofloxacin (Ciprofloxacin 500 Mg Tab) 500 mg PO BID [facility] Stop: 01/16/21 21:01 Last Admin: 01/06/21 11:46 Dose: 500 mg Documented by: Clonazepam (Clonazepam 1 Mg Tab) 2 mg PO BEDTIME [facility] Clopidogrel Bisulfate (Clopidogrel 75 Mg Tab) 75 mg PO DAILY [facility] Last Admin: 01/06/21 08:23 Dose: 75 mg Documented by: Cyanocobalamin (Cyanocobalamin (Vitamin B12) 500 Mcg Tab) 500 mcg PO DAILY [facility] Duloxetine HCl (Duloxetine 60 Mg Cap) 120 mg PO DAILY [facility] Last Admin: 01/06/21 08:21 Dose: 120 mg Documented by: Enoxaparin Sodium (Enoxaparin 40 Mg/0.4 Ml Syringe) 40 mg SUBCUT Q24H [facility] Last Admin: 01/06/21 15:50 Dose: 40 mg Documented by: Famotidine (Famotidine 20 Mg Tab) 20 mg PO BEDTIME [facility] Last Admin: 01/05/21 20:36 Dose: 20 mg Documented by: Folic Acid (Folic Acid 0.8 Mg Tab) 2.4 mg PO DAILY [facility] Last Admin: 01/06/21 08:21 Dose: 2.4 mg Documented by: Mirabegron (Mirabegron 25 Mg Tab Extended Release) 25 mg PO DAILY [facility] Last Admin: 01/06/21 08:23 Dose: 25 mg Documented by: Calcium Citrate/ (Vitamin D3 *Ptom*) 1 tab PO DAILY [facility] Last Admin: 01/06/21 08:20 Dose: 1 tab Documented by: Probiotic Plus & (Cranberry *Ptom*) 1 cap PO DAILY [facility] Last Admin: 01/06/21 08:20 Dose: 1 cap Documented by: D-Mannose [Azo D- Mannose] 500 Mg Capsule *Ptom* 500 mg PO DAILY [facility] Last Admin: 01/06/21 08:21 Dose: 500 mg Documented by: Magnesium [Magnesium ] 250 Mg Tablet * Ptom* 250 mg PO DAILY [facility] Last Admin: 01/06/21 08:22 Dose: 250 mg Documented by: Melatonin [Melatonin ] 10 Mg Tablet *Ptom * 10 mg PO BEDTIME [facility] Last Admin: 01/05/21 20:35 Dose: 10 mg Documented by: Ondansetron HCl (Ondansetron 4 Mg Tab.Dis) 4 mg PO Q4H PRN PRN Reason: Nausea/Vomiting Last Admin: 01/05/21 20:33 Dose: 4 mg Documented by: Pantoprazole Sodium (Pantoprazole 40 Mg Tab.Cr) 40 mg PO DAILY@0600 [facility] Last Admin: 01/06/21 05:09 Dose: 40 mg Documented by: Potassium Citrate (Potassium Citrate 10 Meq Tab.Er) 30 meq PO DAILY [facility] Last Admin: 01/06/21 08:23 Dose: 30 meq Documented by: Multivit/Folic Acid/Iron ( Multivitamin With Calcium/Folic Acid/Fe Fumarate Cap) 1 each PO DAILY [facility] Sodium Chloride (Sodium Chloride 0.9% 10 Ml Syringe) 10 ml FLUSH ASDIRECTED PRN PRN Reason: Keep Vein Open Last Admin: 01/03/21 14:20 Dose: 10 ml Documented by: Tamsulosin HCl (Tamsulosin 0.4 Mg Cap.Er) 0.4 mg PO BEDTIME [facility] Last Admin: 01/05/21 20:33 Dose: 0.4 mg Documented by: Discontinued Medications Clonazepam (Clonazepam 1 Mg Tab) 2 mg PO BEDTIME [facility] Last Admin: 01/03/21 21:18 Dose: 2 mg Documented by: Clonazepam (Clonazepam 1 Mg TabOwn Med) 2 mg PO BEDTIME [facility] Last Admin: 01/05/21 20:34 Dose: 2 mg Documented by: Cyanocobalamin (Cyanocobalamin (Vitamin B12) 500 Mcg Tab *Ptom*) 500 mcg PO DAILY [facility] Last Admin: 01/06/21 08:24 Dose: 500 mcg Documented by: Diatrizoate Meglum/Diatrizoate Sod (Diatrizoate Meglumine/Diatrizoate Sodium 37% 30 Ml Bottle) 30 ml PO . DIRECTED ONE Stop: 01/03/21 15:37 Last Admin: 01/03/21 16:25 Dose: 30 ml Documented by: Sodium Chloride (Normal Saline) 1,000 mls @ 125 mls/hr IV ASDIRECTED [facility] Last Admin: 01/06/21 07:40 Dose: 125 mls/hr Documented by: Ciprofloxacin/Dextrose 400 mg/ (Premix) 200 mls @ 200 mls/hr IV Q12H [facility] Last Admin: 01/06/21 01:35 Dose: 200 mls/hr Documented by: Iopamidol (Iopamidol 755 Mg/Ml 75 Ml Bottle) 75 ml IV ASDIRECTED ONE Stop: 01/03/21 15:37 Last Admin: 01/03/21 16:25 Dose: 75 ml Documented by: Aripiprazole [ Abilify] 15 Mg Tablet *Ptom* 15 mg PO DAILY [facility] Last Admin: 01/06/21 08:20 Dose: 15 mg Documented by: Omeprazole [ Omeprazole] 20 Mg Capsule. *Ptom* 40 mg PO DAILY [facility] Last Admin: 01/06/21 08:23 Dose: 40 mg Documented by: Caplet * (Ptom*) 1 tab PO DAILY [facility] Last Admin: 01/06/21 08:23 Dose: 1 tab Documented by: - Exam General: Alert, Oriented, Cooperative Lungs: Clear to Auscultation, Normal Respiratory Effort Cardiovascular: Regular Rate, Regular Rhythm GI/Abdominal Exam: Normal Bowel Sounds, Soft, No Distention, Guarding (Left flank), Tender Extremities: Pedal Edema (1+BLE, bilateral hands: nonpitting edema.) - Patient Data Lab Results Last 24 hrs: Laboratory Results - last 24 hr 01/06/21 01/06/21 Range/Units 06:45 06:45 WBC 3.6 (3.0-10.3) x10-3/uL RBC 3.32 L (3.60-5.20) x10(6)uL Hgb 10.2 L (11.4-15.5) g/dL Hct 31.1 L (34.2-48.2) % MCV 93.7 (76.7-100.5) fL MCH 30.6 (23.9-33.9) pg MCHC 32.7 (31.9-34.8) g/dL RDW 15.3 (12.3-16.5) % Plt Count 133 L (151-488) x10(3)uL MPV 8.7 (7.1-12.4) fL Neut % (Auto) 46.1 (30.8-76.2) % Lymph % (Auto) 38.7 (18.4-52.1) % [facility] % (Auto) 10.5 (4.4-15.7) % Eos % (Auto) 3.9 (0.6-8.1) % Baso % (Auto) 0.8 (0.2-1.5) % Neut # (Auto) 1.7 (1.5-6.3) x10-3/uL Lymph # (Auto) 1.4 (1.0-4.4) x10-3/uL [facility] # (Auto) 0.4 (0.3-1.0) x10-3/uL Eos # (Auto) 0.1 (0.0-0.8) x10-3/uL Baso # (Auto) 0.0 (0.0-0.1) x10-3/uL Sodium 141 (135-145) mmol/L Potassium 4.1 (3.5-5.3) mmol/L Chloride 109 (100-110) mmol/L Carbon Dioxide 28 (21-32) mmol/L BUN 6 L (7-18) mg/dL Creatinine 1.3 H (0.55-1.02) mg/dL Est Cr Clr Drug Dosing 31.82 mL/min Estimated GFR (MDRD) 41 L (>60) BUN/Creatinine Ratio 4.6 L (9-20) Glucose 92 (80-116) mg/dL Calcium 8.3 L (8.6-10.2) mg/dL Result Diagrams: 01/06/21 06:45 01/06/21 06:45 Gerard Results Last 24 hrs: Microbiology 01/03/21 14:10 Aerobic Blood Culture - Preliminary Blood - Venous - Lab Draw NO GROWTH AFTER 3 DAYS Anaerobic Blood Culture - Preliminary NO GROWTH AFTER 3 DAYS 01/03/21 14:10 Aerobic Blood Culture - Preliminary Blood - Venous NO GROWTH AFTER 3 DAYS Anaerobic Blood Culture - Preliminary NO GROWTH AFTER 3 DAYS Sepsis Event Note - Evaluation Sepsis Screening Result: No Definite Risk - Focused Exam Vital Signs: Vital Signs Temp Pulse Resp BP Pulse Ox 01/06/21 15:27 97.4 F 72 16 137/80 96 01/06/21 08:00 97.7 F 79 16 114/62 98 - Problem List & Annotations (1) Salmonella gastroenteritis SNOMED Code(s): 06304582 Code(s): A02.0 - SALMONELLA ENTERITIS Status: Acute Current Visit: No Annotation/Comment:: improving (2) Left ureteral stone SNOMED Code(s): 19650873 Code(s): N20.1 - CALCULUS OF URETER Status: Acute Current Visit: Yes Onset Date: ~01/03/21 Annotation/Comment:: Multiple stones, range 1 mm, 5 mm, 9 mm(closest to UPJ) (3) Personal history of immunosupression therapy SNOMED Code(s): 749261111 Code(s): Z92.25 - PERSONAL HISTORY OF IMMUNOSUPPRESSION THERAPY Status: Acute Current Visit: Yes Annotation/Comment:: On Cosentyx for Ankylosing spondylitis (4) 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 SNOMED Code(s): 465691646 Code(s): Z98.84 - BARIATRIC SURGERY STATUS Status: Chronic Current Visit: Yes (5) CKD (chronic kidney disease) SNOMED Code(s): 878738264 Code(s): N18.9 - CHRONIC KIDNEY DISEASE, UNSPECIFIED Status: Chronic Current Visit: No Annotation/Comment:: Cr 1.3 (6) Hypertension SNOMED Code(s): 80933041 Code(s): I10 - ESSENTIAL (PRIMARY) HYPERTENSION Status: Chronic Current Visit: Yes (7) Atherosclerotic heart disease of [place] coronary artery without angina pectoris SNOMED Code(s): 069200139 Code(s): I25.10 - ATHSCL HEART DISEASE OF [place] CORONARY ARTERY W/O ANG PCTRS Status: Chronic Current Visit: Yes (8) Generalized anxiety disorder SNOMED Code(s): 73344190 Code(s): F41.1 - GENERALIZED ANXIETY DISORDER Status: Chronic Current Visit: Yes (9) Major depressive disorder, recurrent episode, mild SNOMED Code(s): 001663550, 517470832, 390781818 Code(s): F33.0 - MAJOR DEPRESSIVE DISORDER, RECURRENT, MILD Status: Chronic Current Visit: Yes (10) GERD (gastroesophageal reflux disease) SNOMED Code(s): 603274100 Code(s): K21.9 - GASTRO-ESOPHAGEAL REFLUX DISEASE WITHOUT ESOPHAGITIS Status: Chronic Current Visit: Yes (11) Ankylosing spondylitis SNOMED Code(s): 8327807 Code(s): M45.9 - ANKYLOSING SPONDYLITIS OF UNSPECIFIED SITES IN SPINE Status: Chronic Current Visit: Yes Annotation/Comment:: on Cosentyx (12) Presence of implanted infusion pump SNOMED Code(s): 706445527, 318524869 Code(s): Z95.828 - PRESENCE OF OTHER VASCULAR IMPLANTS AND GRAFTS Status: Chronic Current Visit: Yes Annotation/Comment:: for Sacroiliitis (13) Sacroiliitis SNOMED Code(s): 46980098 Code(s): M46.1 - SACROILIITIS, NOT ELSEWHERE CLASSIFIED Status: Chronic Current Visit: Yes (14) Dehydration SNOMED Code(s): 42376618 Code(s): E86.0 - DEHYDRATION Status: Resolved Current Visit: No Annotation/Comment:: improving, Cr 1.3. (15) Hypokalemia SNOMED Code(s): 80193772 Code(s): E87.6 - HYPOKALEMIA Status: Resolved Current Visit: No Annotation/Comment:: K 4.1 - Problem List Review Problem List Initiated/Reviewed/Updated: Yes - My Orders Last 24 Hours: My Active Orders 01/06/21 07:45 Patient Status [ADT] Routine 01/06/21 09:09 Convert IV to Peripheral Lock [Convert IV to Saline Lock] [OM.PC] Routine 01/06/21 12:00 Ciprofloxacin [Ciprofloxacin HCl] 500 mg PO BID 01/06/21 21:00 ClonazePAM [KlonoPIN] 2 mg PO BEDTIME 01/07/21 09:00 ARIPiprazole [Abilify] 15 mg PO DAILY Cyanocobalamin (Vitamin B12) [Vitamin B12] 500 mcg PO DAILY Vit/FA/Fe Fumarate [-U] 1 each PO DAILY - Plan Plan:: 1. Salmonella gastroenteritis: Ciprofloxacin 500 mg po bid, noon and 2100, then 0900 tomorrow. Since she is on Consentyx, would treat for 14 days. Enteric isolation. 2. Multiple kidney stones, with hydronephrosis: Flomax 0.4 mg daily. Saline lock. Consult nephrology, Dr Lange recommended follow up with Dr Adams earlier than 01/28, patient is on cancellation list to get earlier appt. Appt made with Dr Lowery for 01/20 at 1030 am for hospital follow up. Her pain is controlled. 3. Dehydration/hypokalemia: resolved. K 4.1 today, keep on home dose of potassium. 4. Disposition: Change to orals, see how she does overnight and possible discharge tomorrow. Adjust treatments as necessary.
[2021-01-06] MEDS: Ciprofloxacin 500 MG Tab PO SCH (20:34)
[2021-01-06] MEDS: Tamsulosin 0.4 MG Cap.ER PO SCH (20:34)
[2021-01-06] MEDS: MELATONIN 10 MG PO SCH (20:37)
[2021-01-06] MEDS: Famotidine 20 MG Tab PO SCH (20:39)
[2021-01-06] MEDS: Ondansetron 4 MG Tab.DIS PO PRN (20:39)
[2021-01-06] MEDS ORDERED: ClonazePAM 1 MG Tab PO SCH (21:00)
[2021-01-07] MEDS: Pantoprazole 40 MG Tab.CR PO SCH (05:18)
[2021-01-07] MEDS: Acetaminophen 650 MG Tab.ER PO PRN (07:26)
[2021-01-07 07:38] VITALS: BP 154/92; PULSE 84
[2021-01-07] MEDS ORDERED: ARIPiprazole 5 MG Tab PO SCH (09:00)
[2021-01-07] MEDS ORDERED: Sulfamethoxazole/Trimethoprim 800-160 MG Tab PO SCH (09:00)
[2021-01-07] MEDS ORDERED: Prenatal Multivitamin with Calcium/Folic Acid/Fe Fumarate Cap PO SCH (09:00)
[2021-01-07] MEDS ORDERED: Cyanocobalamin (Vitamin B12) 500 MCG Tab PO SCH (09:00)
[2021-01-07] MEDS: Ciprofloxacin 500 MG Tab PO SCH (10:00)
[2021-01-07] MEDS: [UNRECOGNIZED DRUG - OTHER] PO SCH (10:02)
[2021-01-07] MEDS: CRANBERRY PO SCH (10:02)
[2021-01-07] MEDS: D MANNOSE 500 MG PO SCH (10:03)
[2021-01-07] MEDS: DULoxetine 60 MG Cap PO SCH (10:03)
[2021-01-07] MEDS: Folic Acid 0.8 MG Tab PO SCH (10:04)
[2021-01-07] MEDS: Aspirin 81 MG Tab.EC PO SCH (10:04)
[2021-01-07] MEDS: atorvaSTATin 40 MG Tab PO SCH (10:04)
[2021-01-07] MEDS: Clopidogrel 75 MG Tab PO SCH (10:05)
[2021-01-07] MEDS: Mirabegron 25 MG Tab Extended Release PO SCH (10:05)
[2021-01-07] MEDS: Potassium Citrate 10 MEQ Tab.ER PO SCH (10:05)
[2021-01-07] MEDS: Calcitriol 0.25 MCG Cap PO SCH (10:06)
[2021-01-07] MEDS: Allopurinol 300 MG Tab PO SCH (10:07)
--- NOTE | 2021-01-07 12:54 | PCM.DCSUM1 ---
Discharge Summary - Hospital Course HPI Initial Comments: Samina presents for direct admission from Clinic for worsening Salmonella gastroenteritis. She started having symptoms on 12/21, was seen in clinic on 12/24 had C. difficile testing, basic enteric pathogen panel, CMP and started on Vancomycin while awaiting test results. She had been on Linezolid for UTI(she's had 15 UTIs in the past year). Testing came back negative for C. Difficile so that was discontinued. 12/26 enteric pathogen panel came back positive for Salmonella. She was advised to do supportive care, she was having 10-20 stools per day when seen on 12/24, it was worsening so contacted Dr Barrios on 12/30, he advised coming into clinic or going to ER. She was seen in ER by Dr Bush started on Ciprofloxacin and Azithromycin for 10 days. She denies any vomiting, nausea, fevers, chills, shortness of breath, chest pain. Describes diarrhea has yellow/green stool, watery, some bright red blood when she wipes. States she has dry mouth, but no dysuria, hematuria or frequency of urination. No rash, though dry hands from aggressive hand washing. Has had runny nose but cough. Covid test in clinic today was negative. History of Gastric bypass, hypertension, ankylosing spondylitis on Consentyx. She also has intrathecal pump for pain management of Sacroiliitis. Cardiac stents x 2 placed in 12/2017. Diagnosis: Stroke: No - Discharge Data Discharge Date: 01/07/21 Discharge Disposition: Home, Self-Care 01 Condition: Good - Referral to Home Health Primary Care Physician: Dewayne Barrios MD - Discharge Diagnosis/Problem(s) (1) Salmonella gastroenteritis SNOMED Code(s): 62684763 ICD Code: A02.0 - SALMONELLA ENTERITIS Status: Acute Current Visit: No Problem Details: improving (2) Left ureteral stone SNOMED Code(s): 15129929 ICD Code: N20.1 - CALCULUS OF URETER Status: Acute Current Visit: Yes Onset Date: ~01/03/21 Problem Details: Multiple stones, range 1 mm, 5 mm, 9 mm(closest to UPJ) (3) Cellulitis of left hand SNOMED Code(s): 15283362 ICD Code: L03.114 - CELLULITIS OF LEFT UPPER LIMB Status: Acute Current Visit: Yes Problem Details: started Bactrim BS bid x 7 days. (4) Personal history of immunosupression therapy SNOMED Code(s): 858709376 ICD Code: Z92.25 - PERSONAL HISTORY OF IMMUNOSUPPRESSION THERAPY Status: Acute Current Visit: Yes Problem Details: On Cosentyx for Ankylosing spondylitis (5) 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 SNOMED Code(s): 355093924 ICD Code: Z98.84 - BARIATRIC SURGERY STATUS Status: Chronic Current Visit: Yes (6) CKD (chronic kidney disease) SNOMED Code(s): 105953672 ICD Code: N18.9 - CHRONIC KIDNEY DISEASE, UNSPECIFIED Status: Chronic Current Visit: No Problem Details: Cr 1.3 (7) Hypertension SNOMED Code(s): 95757745 ICD Code: I10 - ESSENTIAL (PRIMARY) HYPERTENSION Status: Chronic Current Visit: Yes (8) Atherosclerotic heart disease of [place] coronary artery without angina pectoris SNOMED Code(s): 068420318 ICD Code: I25.10 - ATHSCL HEART DISEASE OF [place] CORONARY ARTERY W/O ANG PCTRS Status: Chronic Current Visit: Yes (9) Generalized anxiety disorder SNOMED Code(s): 30484106 ICD Code: F41.1 - GENERALIZED ANXIETY DISORDER Status: Chronic Current Visit: Yes (10) Major depressive disorder, recurrent episode, mild SNOMED Code(s): 053477202, 374303523, 403077730 ICD Code: F33.0 - MAJOR DEPRESSIVE DISORDER, RECURRENT, MILD Status: Chronic Current Visit: Yes (11) GERD (gastroesophageal reflux disease) SNOMED Code(s): 315717260 ICD Code: K21.9 - GASTRO-ESOPHAGEAL REFLUX DISEASE WITHOUT ESOPHAGITIS Status: Chronic Current Visit: Yes (12) Ankylosing spondylitis SNOMED Code(s): 0271403 ICD Code: M45.9 - ANKYLOSING SPONDYLITIS OF UNSPECIFIED SITES IN SPINE Status: Chronic Current Visit: Yes Problem Details: on Cosentyx (13) Presence of implanted infusion pump SNOMED Code(s): 717001258, 103498238 ICD Code: Z95.828 - PRESENCE OF OTHER VASCULAR IMPLANTS AND GRAFTS Status: Chronic Current Visit: Yes Problem Details: for Sacroiliitis (14) Sacroiliitis SNOMED Code(s): 90458654 ICD Code: M46.1 - SACROILIITIS, NOT ELSEWHERE CLASSIFIED Status: Chronic Current Visit: Yes (15) Dehydration SNOMED Code(s): 15789137 ICD Code: E86.0 - DEHYDRATION Status: Resolved Current Visit: No Problem Details: improving, Cr 1.3. (16) Hypokalemia SNOMED Code(s): 10227832 ICD Code: E87.6 - HYPOKALEMIA Status: Resolved Current Visit: No Problem Details: K 4.1 - Patient Summary/Data Hospital Course: WBC 4.0, 3.6, Cr 1.6 on admission; she was started on Ciprofloxacin [address] abdomen/pelvis showed infectious colitis but incidental finding of multiple ureteral stones on left, multiple 1 mm stones, 5 mm stone & a 9 mm stone closet to the UPJ junction, mild hydronephrosis present. She had lithotripsy [address] Adams[address] She did not have any flank pain on admission, but she did progressively more left flank pain. She has a intrathecal pain pump for sacroiliitis, she declined any additional pain medication. Spoke with Dr Lange, [facility], he recommended her following up with Dr Adams earlier than 01/28 which is her 3 month follow up after her lithotripsy. She was on NS at 125 ml/hr, saline locked once her stools slowed down and her chemistry remained stable. Cr came down to 1.2 at discharge. Her potassium 3.8 on admission, dropped to 3.4, up to 4.3 today, we did not have to change her potassium dose. Her magnesium was 1.7 on 01/05, she is on magnesium supplement and her stools improved so dose was not changed. Her diarrhea slowed during hospital stay and was becoming more formed by discharge, switched to oral Ciprofloxacin on 01/06 will do 14 day course of antibiotics since she is immunocompromised for salmonella gastroenteritis. She had enteric pathogen panel in clinic and was positive on 12/26. She got a skin tear from paper tape on her left hand, she was using this hand to wipe herself so had antibiotic ointment applied with op site dressing to help keep clean when toileting. Added Bactrim DS bid x 7 days for left hand cellulitis, 1 dose given here. She has been on this before without side effects. Hold Calcium, Magnesium and vitamins at home while on ciprofloxacin(medications times were adjusted during her stay to avoid interactions). Follow up with Dr Lowery 01/20 1030 am for hospital follow up. Called Dr Adams's office to get her an earlier appt, have not heard back at time of discharge so will notify her of appt time once we hear back. - Patient Instructions Diet: Usual Diet as Tolerated Activity: As Tolerated Driving: May Drive Today Showering/Bathing: May Shower Notify Provider of: Fever, Increased Pain, Nausea and/or Vomiting Other/Special Instructions: Follow up with Dr Lowery on Jan 20 at 1030 am in [place] for salmonella recheck and also reassess your left hand. Follow up with Dr Adams, we will notify of you of your appt time once we hear back from his office. HOLD YOUR CALCIUM, MAGNESIUM, & VITAMINS WHILE ON CIPROFLOXACIN. - Discharge Plan *PRESCRIPTION DRUG MONITORING PROGRAM REVIEWED*: Not Applicable *COPY OF PRESCRIPTION DRUG MONITORING REPORT IN PATIENT ABEL: Not Applicable Prescriptions/Med Rec: Ciprofloxacin [Ciprofloxacin HCl] 500 mg PO BID@0900,2100 #19 tablet Tamsulosin [Flomax] 0.4 mg PO BEDTIME #14 cap.er Sulfamethoxazole/Trimethoprim [Septra DS] 1 tab PO BID #13 tablet Home Medications: Home Meds Furosemide [Lasix] 20 mg PO DAILY 07/17/16 [History] Acetaminophen [Tylenol Arthritis] 1,300 mg PO Q8H PRN 11/09/16 [History] Cetirizine [ZyrTEC] 10 mg PO DAILY PRN 11/09/16 [History] Propylene Glycol/PEG 400/Pf [Systane 0.3-0.4% Eye Drop] 1 drop EYEBOTH Q4H PRN 11/09/16 [History] clonazePAM [Klonopin] 0.5 mg PO DAILY PRN 11/09/16 [History] Clopidogrel Bisulfate [Plavix] 75 mg PO DAILY 09/27/18 [History] Diclofenac Sodium [Voltaren] 4 gm TP QID PRN 09/27/18 [History] Estrogens, Conjugated [Premarin Vaginal Crm] 0.5 gm VAG TUSA@2100 09/27/18 [History] Melatonin 10 mg PO BEDTIME 09/27/18 [History] Nitroglycerin [Nitrostat] 0.4 mg SL Q5M PRN 09/27/18 [History] SUMAtriptan [Imitrex] 25 mg PO DAILY PRN 09/27/18 [History] atorvaSTATin [Lipitor] 40 mg PO DAILY 09/27/18 [History] clonazePAM [Klonopin] 2 mg PO BEDTIME 09/27/18 [History] tiZANidine [Zanaflex] 2 mg PO BEDTIME PRN 09/27/18 [History] ARIPiprazole [Abilify] 15 mg PO DAILY 12/25/19 [History] Calcium Citrate/Vitamin D3 [Calcium Citrate - Vit D Caplet] 1 tab PO DAILY 12/25/19 [History] DULoxetine [Cymbalta] 120 mg PO DAILY 12/25/19 [History] Folic Acid 2.4 mg PO DAILY 12/25/19 [History] Mirabegron [Myrbetriq] 25 mg PO DAILY 12/25/19 [History] Pnv No.95/Ferrous Fum/Folic AC [ Caplet] 1 tab PO DAILY 12/25/19 [History] allopurinoL [Zyloprim] 300 mg PO DAILY 12/25/19 [History] calcitrioL [Calcitriol] 0.25 mcg PO DAILY 12/25/19 [History] Aspirin [Halfprin] 81 mg PO DAILY 01/03/21 [History] Cran/C/B.coag/Fos/L.acid/L.rha [Probiotic Plus & Cranberry Cap] 1 cap PO DAILY 01/03/21 [History] Cyanocobalamin (Vitamin B-12) [Vitamin B-12] 500 mcg PO DAILY 01/03/21 [History] D-Mannose [Azo D-Mannose] 500 mg PO DAILY 01/03/21 [History] Famotidine 20 mg PO BEDTIME 01/03/21 [History] Magnesium 250 mg PO DAILY 01/03/21 [History] Omeprazole 40 mg PO DAILY 01/03/21 [History] Potassium Citrate [Potassium Citrate ER] 30 meq PO DAILY 01/03/21 [History] Secukinumab [Cosentyx Pen (2 Pens)] 300 mg SQ Q28D 01/03/21 [History] hydroCHLOROthiazide [Hydrochlorothiazide] 12.5 mg PO DAILY 01/03/21 [History] Ciprofloxacin [Ciprofloxacin HCl] 500 mg PO BID@0900,2100 #19 tablet 01/07/21 [Rx] Sulfamethoxazole/Trimethoprim [Septra DS] 1 tab PO BID #13 tablet 01/07/21 [Rx] Tamsulosin [Flomax] 0.4 mg PO BEDTIME #14 cap.er 01/07/21 [Rx] Oxygen Therapy Mode: Room Air Patient Handouts: Contact Precautions, Viad-cc-Barn, Tamsulosin capsules, Fall Prevention in Hospitals, Adult, Ciprofloxacin tablets, Enteric Precautions in the Hospital, Salmonella Gastroenteritis, Adult, Sulfamethoxazole; Trimethoprim, SMX-TMP tablets, Venous Thromboembolism Prevention Referrals: Ally Lowery MD [Ordering Only Provider] - - Discharge Summary/Plan Comment DC Time >30 min.: Yes Total # of Minutes for Discharge Time: 30 min - General Info Date of Service: 01/07/21 Subjective Update: She had soft, mushy, formed stools last night, no diarrhea. No fevers, chills. She had a 2 cm skin tear on her left hand that is red with swelling of the back of her hand. She had edema in her right hand that has IV but that has improved today. She has been using her left hand to wipe herself after going to the bathroom. Nursing had covered wound but states tender. - Patient Data Vitals - Most Recent: Last Vital Signs Temp 98.0 F 01/07/21 07:37 Pulse 84 01/07/21 07:37 Resp 18 01/07/21 07:37 BP 154/92 H 01/07/21 07:37 Pulse Ox 99 01/07/21 07:37 Weight - Most Recent: 177 lb 6 oz Lab Results - Last 24 hrs: Laboratory Results - last 24 hr 01/07/21 Range/Units 06:25 Sodium 141 (135-145) mmol/L Potassium 4.3 (3.5-5.3) mmol/L Chloride 108 (100-110) mmol/L Carbon Dioxide 27 (21-32) mmol/L BUN 5 L (7-18) mg/dL Creatinine 1.2 H (0.55-1.02) mg/dL Est Cr Clr Drug Dosing 34.47 mL/min Estimated GFR (MDRD) 45 L (>60) BUN/Creatinine Ratio 4.2 L (9-20) Glucose 91 (80-116) mg/dL Calcium 8.6 (8.6-10.2) mg/dL CHRISTIN Results - Last 24 hrs: Microbiology 01/03/21 14:10 Aerobic Blood Culture - Preliminary Blood - Venous - Lab Draw NO GROWTH AFTER 3 DAYS Anaerobic Blood Culture - Preliminary NO GROWTH AFTER 3 DAYS 01/03/21 14:10 Aerobic Blood Culture - Preliminary Blood - Venous NO GROWTH AFTER 3 DAYS Anaerobic Blood Culture - Preliminary NO GROWTH AFTER 3 DAYS Med Orders - Current: Current Medications Acetaminophen (Acetaminophen 650 Mg Tab.Er) 1,300 mg PO Q8H PRN PRN Reason: MODERATE/SEVERE PAIN Last Admin: 01/07/21 07:26 Dose: 1,300 mg Documented by: Allopurinol (Allopurinol 300 Mg Tab) 300 mg PO DAILY [facility] Last Admin: 01/07/21 10:07 Dose: 300 mg Documented by: Aripiprazole (Aripiprazole 5 Mg Tab) 15 mg PO DAILY [facility] Last Admin: 01/07/21 09:59 Dose: 15 mg Documented by: Aspirin (Aspirin 81 Mg Tab.Ec) 81 mg PO DAILY [facility] Last Admin: 01/07/21 10:04 Dose: 81 mg Documented by: Atorvastatin Calcium (Atorvastatin 40 Mg Tab) 40 mg PO DAILY [facility] Last Admin: 01/07/21 10:04 Dose: 40 mg Documented by: Calcitriol (Calcitriol 0.25 Mcg Cap) 0.25 mcg PO DAILY [facility] Last Admin: 01/07/21 10:06 Dose: 0.25 mcg Documented by: Ciprofloxacin (Ciprofloxacin 500 Mg Tab) 500 mg PO BID@0900,2100 [facility] Stop: 01/16/21 21:01 Last Admin: 01/07/21 10:00 Dose: 500 mg Documented by: Clonazepam (Clonazepam 1 Mg Tab) 2 mg PO BEDTIME [facility] Last Admin: 01/06/21 20:35 Dose: 2 mg Documented by: Clopidogrel Bisulfate (Clopidogrel 75 Mg Tab) 75 mg PO DAILY [facility] Last Admin: 01/07/21 10:05 Dose: 75 mg Documented by: Cyanocobalamin (Cyanocobalamin (Vitamin B12) 500 Mcg Tab) 500 mcg PO DAILY [facility] Last Admin: 01/07/21 10:12 Dose: 500 mcg Documented by: Duloxetine HCl (Duloxetine 60 Mg Cap) 120 mg PO DAILY [facility] Last Admin: 01/07/21 10:03 Dose: 120 mg Documented by: Enoxaparin Sodium (Enoxaparin 40 Mg/0.4 Ml Syringe) 40 mg SUBCUT Q24H [facility] Last Admin: 01/06/21 15:50 Dose: 40 mg Documented by: Famotidine (Famotidine 20 Mg Tab) 20 mg PO BEDTIME [facility] Last Admin: 01/06/21 20:39 Dose: 20 mg Documented by: Folic Acid (Folic Acid 0.8 Mg Tab) 2.4 mg PO DAILY [facility] Last Admin: 01/07/21 10:04 Dose: 2.4 mg Documented by: Mirabegron (Mirabegron 25 Mg Tab Extended Release) 25 mg PO DAILY [facility] Last Admin: 01/07/21 10:05 Dose: 25 mg Documented by: Calcium Citrate/ (Vitamin D3 *Ptom*) 1 tab PO DAILY [facility] Last Admin: 01/06/21 08:20 Dose: 1 tab Documented by: Probiotic Plus & (Cranberry *Ptom*) 1 cap PO DAILY [facility] Last Admin: 01/07/21 10:02 Dose: 1 cap Documented by: D-Mannose [Azo D- Mannose] 500 Mg Capsule *Ptom* 500 mg PO DAILY [facility] Last Admin: 01/07/21 10:03 Dose: 500 mg Documented by: Magnesium [Magnesium ] 250 Mg Tablet * Ptom* 250 mg PO DAILY [facility] Last Admin: 01/06/21 08:22 Dose: 250 mg Documented by: Melatonin [Melatonin ] 10 Mg Tablet *Ptom * 10 mg PO BEDTIME [facility] Last Admin: 01/06/21 20:37 Dose: 10 mg Documented by: Ondansetron HCl (Ondansetron 4 Mg Tab.Dis) 4 mg PO Q4H PRN PRN Reason: Nausea/Vomiting Last Admin: 01/06/21 20:39 Dose: 4 mg Documented by: Pantoprazole Sodium (Pantoprazole 40 Mg Tab.Cr) 40 mg PO DAILY@0600 [facility] Last Admin: 01/07/21 05:18 Dose: 40 mg Documented by: Potassium Citrate (Potassium Citrate 10 Meq Tab.Er) 30 meq PO DAILY [facility] Last Admin: 01/07/21 10:05 Dose: 30 meq Documented by: Multivit/Folic Acid/Iron ( Multivitamin With Calcium/Folic Acid/Fe Fumarate Cap) 1 each PO DAILY [facility] Sodium Chloride (Sodium Chloride 0.9% 10 Ml Syringe) 10 ml FLUSH ASDIRECTED PRN PRN Reason: Keep Vein Open Last Admin: 01/03/21 14:20 Dose: 10 ml Documented by: Tamsulosin HCl (Tamsulosin 0.4 Mg Cap.Er) 0.4 mg PO BEDTIME [facility] Last Admin: 01/06/21 20:34 Dose: 0.4 mg Documented by: Trimethoprim/Sulfamethoxazole (Sulfamethoxazole/Trimethoprim 800-160 Mg Tab) 1 tab PO BID [facility] Last Admin: 01/07/21 10:12 Dose: 1 tab Documented by: Discontinued Medications Ciprofloxacin (Ciprofloxacin 500 Mg Tab) 500 mg PO BID [facility] Stop: 01/16/21 21:01 Last Admin: 01/06/21 11:46 Dose: 500 mg Documented by: Clonazepam (Clonazepam 1 Mg Tab) 2 mg PO BEDTIME [facility] Last Admin: 01/03/21 21:18 Dose: 2 mg Documented by: Clonazepam (Clonazepam 1 Mg TabOwn Med) 2 mg PO BEDTIME [facility] Last Admin: 01/05/21 20:34 Dose: 2 mg Documented by: Cyanocobalamin (Cyanocobalamin (Vitamin B12) 500 Mcg Tab *Ptom*) 500 mcg PO DAILY [facility] Last Admin: 01/06/21 08:24 Dose: 500 mcg Documented by: Diatrizoate Meglum/Diatrizoate Sod (Diatrizoate Meglumine/Diatrizoate Sodium 37% 30 Ml Bottle) 30 ml PO . DIRECTED ONE Stop: 01/03/21 15:37 Last Admin: 01/03/21 16:25 Dose: 30 ml Documented by: Sodium Chloride (Normal Saline) 1,000 mls @ 125 mls/hr IV ASDIRECTED [facility] Last Admin: 01/06/21 07:40 Dose: 125 mls/hr Documented by: Ciprofloxacin/Dextrose 400 mg/ (Premix) 200 mls @ 200 mls/hr IV Q12H [facility] Last Admin: 01/06/21 01:35 Dose: 200 mls/hr Documented by: Iopamidol (Iopamidol 755 Mg/Ml 75 Ml Bottle) 75 ml IV ASDIRECTED ONE Stop: 01/03/21 15:37 Last Admin: 01/03/21 16:25 Dose: 75 ml Documented by: Aripiprazole [ Abilify] 15 Mg Tablet *Ptom* 15 mg PO DAILY [facility] Last Admin: 01/06/21 08:20 Dose: 15 mg Documented by: Omeprazole [ Omeprazole] 20 Mg Capsule. *Ptom* 40 mg PO DAILY [facility] Last Admin: 01/06/21 08:23 Dose: 40 mg Documented by: Caplet * (Ptom*) 1 tab PO DAILY [facility] Last Admin: 01/06/21 08:23 Dose: 1 tab Documented by: - Exam General: Reports: Alert, Oriented, Cooperative, No Acute Distress Lungs: Reports: Clear to Auscultation, Normal Respiratory Effort Cardiovascular: Reports: Regular Rate, Regular Rhythm GI/Abdominal Exam: Normal Bowel Sounds, Soft, Non-Tender, No Distention Extremities: No Pedal Edema, Redness (left dorsal hand, 2 cm linear wound, superficial does not open with pressure on either side, has surrounding erythema, TTP but no warmth. Moderate swelling of left dorsal hand. ) Wound/Incisions: Reports: No Drainage, Erythema
== END 2021-01-07 11:45 | disposition home or self-care (01) | DRG 372 ==
LOC: FB.MS 07:45 → OBSVTOIN 01-06 07:45
PROVIDERS: ADMIT Family Medicine; ATTEND Family Medicine
DX: A02.0 Salmonella enteritis (principal); L03.114 Cellulitis of left upper limb; F33.0 Major depressive disorder, recurrent, mild; N13.2 Hydronephrosis with renal and ureteral calculous obstruction; Z92.25 Personal history of immunosuppression therapy; Z98.84 Bariatric surgery status; I12.9 Hypertensive chronic kidney disease with stage 1 through stage 4 chronic kidney disease, or unspecified chronic kidney disease; I25.10 Atherosclerotic heart disease of native coronary artery without angina pectoris; F41.1 Generalized anxiety disorder; K21.9 Gastro-esophageal reflux disease without esophagitis; M45.9 Ankylosing spondylitis of unspecified sites in spine; M46.1 Sacroiliitis, not elsewhere classified; E86.0 Dehydration; Z95.5 Presence of coronary angioplasty implant and graft; E87.6 Hypokalemia; J45.909 Unspecified asthma, uncomplicated; K57.90 Diverticulosis of intestine, part unspecified, without perforation or abscess without bleeding; N18.30 Chronic kidney disease, stage 3 unspecified; F41.9 Anxiety disorder, unspecified; M19.90 Unspecified osteoarthritis, unspecified site; M79.7 Fibromyalgia; E21.3 Hyperparathyroidism, unspecified; K91.1 Postgastric surgery syndromes; E66.9 Obesity, unspecified; Z90.49 Acquired absence of other specified parts of digestive tract; Z95.828 Presence of other vascular implants and grafts; Z88.8 Allergy status to other drugs, medicaments and biological substances; Z88.0 Allergy status to penicillin; Z88.5 Allergy status to narcotic agent; Z91.040 Latex allergy status; Z79.82 Long term (current) use of aspirin; Z79.899 Other long term (current) drug therapy; I25.2 Old myocardial infarction; Z90.710 Acquired absence of both cervix and uterus; Z98.61 Coronary angioplasty status; Z88.6 Allergy status to analgesic agent; Z88.1 Allergy status to other antibiotic agents; Z91.048 Other nonmedicinal substance allergy status; Z79.02 Long term (current) use of antithrombotics/antiplatelets
CPT/HCPCS: 36410; 36415 ×4; 74177; 80048 ×3; 80053; 83735; 85025 ×3; 87040 ×2; A9270 ×54; J0744 ×6; J1650 ×3; J7030 ×8; Q9963; Q9967; 96365; 96366; 96372; G0378; G0379

== ENCOUNTER 2023-08-19 15:38 | Emergency (ER) | payer MEDICARE ==
[2023-08-19] MEDS ORDERED: Ciprofloxacin 500 MG Tab PO ONE (15:39)
[2023-08-19 15:59] LABS: BASOPHILS PERCENT AUTO 0.6 % (0.2-1.5); EOSINOPHILS PERCENT AUTO 0.5 % (0.6-8.1); HEMATOCRIT 39.7 % (34.2-48.2); HEMOGLOBIN 13.1 g/dL (11.4-15.5); LYMPHOCYTES ABSOLUTE AUTO 1.5 x10-3/uL (1.0-4.4); LYMPHOCYTES PERCENT AUTO 18.1 % (18.4-52.1); MEAN CORPUSCULAR HGB CONC 32.9 g/dL (31.9-34.8); MEAN CORPUSCULAR VOLUME 94.2 fL (76.7-100.5); MEAN PLATELET VOLUME 8.7 fL (7.1-12.4); MONOCYTES ABSOLUTE AUTO 0.4 x10-3/uL (0.3-1.0); MONOCYTES PERCENT AUTO 4.9 % (4.4-15.7); NEUTROPHILS ABSOLUTE AUTO 6.2 x10-3/uL (1.5-6.3); NEUTROPHILS PERCENT AUTO 75.9 % (30.8-76.2); PLATELET COUNT,PLT 219 x10(3)uL (151-488); RED BLOOD CELL COUNT 4.22 x10(6)uL (3.60-5.20); RED CELL DISTRIBUTION WIDTH 14.7 % (12.3-16.5); WHITE BLOOD CELL COUNT,WBC 8.2 x10-3/uL (3.0-10.3)
[2023-08-19 16:03] LABS: BLOOD UREA NITROGEN,BUN 13 mg/dL (7-18); CALCIUM 9.1 mg/dL (8.6-10.2); CARBON DIOXIDE,CO2 25 mmol/L (21-32); CHLORIDE,CL 105 mmol/L (100-110); CREATININE 1.3 mg/dL (0.55-1.02); EST CRCL DRUG DOSING (CG) 30.58 mL/min; ESTIMATED GFR 45 mL/min (>60); GLUCOSE RANDOM 126 mg/dL (80-116); POTASSIUM,K 4.7 mmol/L (3.5-5.3); SODIUM,NA 140 mmol/L (135-145)
[2023-08-19 16:04] VITALS: BP 111/81; PULSE 90
[2023-08-19 16:09] LABS: BILIRUBIN,URINE NEGATIVE (NEGATIVE); GLUCOSE,URINE NORMAL (NORMAL); KETONES,URINE NEGATIVE (NEGATIVE); LEUKOCYTE ESTERASE,URINE LARGE (NEGATIVE); NITRITE,URINE POSITIVE (NEGATIVE); OCCULT BLOOD,URINE MODERATE (NEGATIVE); PROTEIN,URINE TRACE mg/dL (NEGATIVE); UROBILINOGEN,URINE NORMAL (NEGATIVE)
[2023-08-19 16:11] LABS: APPEARANCE,URINE SLIGHTLY CLOUDY (CLEAR); BACTERIA,URINE MANY (NS); COLOR,URINE YELLOW (YELLOW); SQUAMOUS EPITHELIAL CELLS,UR FEW (NS,R,O); WBC,URINE 30-40 (0-5)
== END 2023-08-19 16:23 | disposition home or self-care (01) ==
LOC: FB.ED 15:38
DX: N39.0 Urinary tract infection, site not specified (principal); I12.9 Hypertensive chronic kidney disease with stage 1 through stage 4 chronic kidney disease, or unspecified chronic kidney disease; N18.30 Chronic kidney disease, stage 3 unspecified; I25.10 Atherosclerotic heart disease of native coronary artery without angina pectoris; I25.2 Old myocardial infarction; J45.909 Unspecified asthma, uncomplicated; E66.9 Obesity, unspecified; Z88.0 Allergy status to penicillin; Z88.5 Allergy status to narcotic agent; Z88.8 Allergy status to other drugs, medicaments and biological substances; Z91.040 Latex allergy status; Z91.048 Other nonmedicinal substance allergy status; Z79.899 Other long term (current) drug therapy; Z90.49 Acquired absence of other specified parts of digestive tract; Z90.710 Acquired absence of both cervix and uterus; Z68.42 Body mass index [BMI] 45.0-49.9, adult
CPT/HCPCS: 36415; 80048; 81001; 85025; 87086; 87088; 87186; 99284; A9270-GY

== ENCOUNTER 2023-09-18 12:52 | Inpatient (IN) | payer MEDICARE ==
[2023-09-18] MEDS: Sodium Chloride 0.9% 10 ML Syringe FLUSH PRN (13:08)
[2023-09-18 13:17] LABS: BASOPHILS PERCENT AUTO 0.6 % (0.2-1.5); EOSINOPHILS ABSOLUTE AUTO 0.1 x10-3/uL (0.0-0.8); EOSINOPHILS PERCENT AUTO 2.5 % (0.6-8.1); HEMATOCRIT 38.8 % (34.2-48.2); LYMPHOCYTES ABSOLUTE AUTO 1.1 x10-3/uL (1.0-4.4); LYMPHOCYTES PERCENT AUTO 21.1 % (18.4-52.1); MEAN CORPUSCULAR HEMOGLOBIN 30.8 pg (23.9-33.9); MEAN CORPUSCULAR HGB CONC 33.4 g/dL (31.9-34.8); MEAN CORPUSCULAR VOLUME 92.4 fL (76.7-100.5); MONOCYTES ABSOLUTE AUTO 0.4 x10-3/uL (0.3-1.0); MONOCYTES PERCENT AUTO 7.1 % (4.4-15.7); NEUTROPHILS ABSOLUTE AUTO 3.5 x10-3/uL (1.5-6.3); NEUTROPHILS PERCENT AUTO 68.7 % (30.8-76.2); PLATELET COUNT,PLT 184 x10(3)uL (151-488); RED CELL DISTRIBUTION WIDTH 14.6 % (12.3-16.5); WHITE BLOOD CELL COUNT,WBC 5.1 x10-3/uL (3.0-10.3)
[2023-09-18 13:23] LABS: BLOOD UREA NITROGEN,BUN 13 mg/dL (7-18); BUN/CREATININE RATIO 9.3 (9-20); CARBON DIOXIDE,CO2 27 mmol/L (21-32); CHLORIDE,CL 103 mmol/L (100-110); CREATININE 1.4 mg/dL (0.55-1.02); ESTIMATED GFR 41 mL/min (>60); GLUCOSE RANDOM 118 mg/dL (80-116); POTASSIUM,K 4.4 mmol/L (3.5-5.3); SODIUM,NA 140 mmol/L (135-145)
[2023-09-18 13:24] LABS: LIPASE 32 U/L (16-77)
[2023-09-18 13:28] LABS: A/G RATIO 0.8; ALANINE AMINOTRANSFERASE,ALT 32 U/L (12-36); ALBUMIN 3.6 g/dL (3.2-4.6); ALKALINE PHOSPHATASE 111 IU/L (56-112); ASPARTATE AMNIOTRANSFERASE,AST 28 IU/L (5-25); BILIRUBIN TOTAL 0.8 mg/dL (0.1-1.3)
[2023-09-18 13:34] LABS: C-REACTIVE PROTEIN < 0.50 mg/dL (<0.50)
[2023-09-18] MEDS: Sodium Chloride 0.9% 1,000 ML IV ONE ×2 (14:04→17:47)
[2023-09-18] MEDS: Ketorolac 15 MG/ML SDV IVPUSH ONE (14:06)
[2023-09-18] MEDS: Ondansetron 4 MG/2 ML SDV IVPUSH ONE (14:06)
[2023-09-18 17:29] LABS: BILIRUBIN,URINE NEGATIVE (NEGATIVE); GLUCOSE,URINE NORMAL (NORMAL); KETONES,URINE NEGATIVE (NEGATIVE); LEUKOCYTE ESTERASE,URINE NEGATIVE (NEGATIVE); NITRITE,URINE NEGATIVE (NEGATIVE); OCCULT BLOOD,URINE NEGATIVE (NEGATIVE); PROTEIN,URINE NEGATIVE (NEGATIVE); UROBILINOGEN,URINE NORMAL (NEGATIVE)
[2023-09-18 17:33] LABS: APPEARANCE,URINE CLEAR (CLEAR); BACTERIA,URINE FEW (NS); COLOR,URINE YELLOW (YELLOW); RBC,URINE 0-5 (0-5); SQUAMOUS EPITHELIAL CELLS,UR RARE (NS,R,O); WBC,URINE 0-5 (0-5)
[2023-09-18] MEDS ORDERED: Ketorolac 30 MG/ML SDV IVPUSH PRN ×2 (19:19→20:00)
[2023-09-18] MEDS: Sodium Chloride 0.9% 1,000 ML IV SCH (21:44)
[2023-09-18] MEDS: Enoxaparin 40 MG/0.4 ML Syringe SUBCUT SCH (21:45)
[2023-09-18] MEDS: ClonazePAM 1 MG Tab PO SCH (22:04)
[2023-09-18] MEDS: Ketorolac 15 MG/ML SDV IVPUSH PRN (23:57)
[2023-09-19 06:49] LABS: BASOPHILS PERCENT AUTO 0.9 % (0.2-1.5); EOSINOPHILS ABSOLUTE AUTO 0.1 x10-3/uL (0.0-0.8); EOSINOPHILS PERCENT AUTO 2.9 % (0.6-8.1); HEMATOCRIT 32.8 % (34.2-48.2); LYMPHOCYTES ABSOLUTE AUTO 1.9 x10-3/uL (1.0-4.4); LYMPHOCYTES PERCENT AUTO 47.2 % (18.4-52.1); MEAN CORPUSCULAR HEMOGLOBIN 31.4 pg (23.9-33.9); MEAN CORPUSCULAR HGB CONC 33.6 g/dL (31.9-34.8); MEAN CORPUSCULAR VOLUME 93.6 fL (76.7-100.5); MEAN PLATELET VOLUME 9.1 fL (7.1-12.4); MONOCYTES ABSOLUTE AUTO 0.4 x10-3/uL (0.3-1.0); MONOCYTES PERCENT AUTO 8.9 % (4.4-15.7); NEUTROPHILS ABSOLUTE AUTO 1.6 x10-3/uL (1.5-6.3); NEUTROPHILS PERCENT AUTO 40.1 % (30.8-76.2); PLATELET COUNT,PLT 143 x10(3)uL (151-488); RED BLOOD CELL COUNT 3.51 x10(6)uL (3.60-5.20); RED CELL DISTRIBUTION WIDTH 14.7 % (12.3-16.5); WHITE BLOOD CELL COUNT,WBC 4.1 x10-3/uL (3.0-10.3)
[2023-09-19 07:03] LABS: A/G RATIO 0.7; ALANINE AMINOTRANSFERASE,ALT 31 U/L (12-36); ALBUMIN 2.6 g/dL (3.2-4.6); ALKALINE PHOSPHATASE 87 IU/L (56-112); ASPARTATE AMNIOTRANSFERASE,AST 39 IU/L (5-25); BILIRUBIN TOTAL 0.5 mg/dL (0.1-1.3); BLOOD UREA NITROGEN,BUN 11 mg/dL (7-18); BUN/CREATININE RATIO 8.5 (9-20); CALCIUM 7.2 mg/dL (8.6-10.2); CARBON DIOXIDE,CO2 28 mmol/L (21-32); CHLORIDE,CL 109 mmol/L (100-110); CREATININE 1.3 mg/dL (0.55-1.02); ESTIMATED GFR 45 mL/min (>60); GLUCOSE RANDOM 80 mg/dL (80-116); MAGNESIUM 2.1 mg/dL (1.8-2.5); POTASSIUM,K 4.2 mmol/L (3.5-5.3); PROTEIN TOTAL,TP 6.3 g/dL (6.0-8.0); SODIUM,NA 142 mmol/L (135-145)
[2023-09-19] MEDS ORDERED: Diclofenac Sodium 1% Gel 100 GM Tube TOP PRN (20:16)
[2023-09-19] MEDS: Acetaminophen 500 MG Tab PO PRN (20:47)
[2023-09-19] MEDS: Diclofenac Sodium 1% Gel 100 GM Tube TOP PRN (20:48)
[2023-09-19] MEDS ORDERED: ClonazePAM 1 MG Tab PO SCH (21:00)
[2023-09-19] MEDS: Atropine/Diphenoxylate 0.025-2.5 MG Tab PO PRN (22:15)
[2023-09-19] MEDS: Ondansetron 4 MG/2 ML SDV IV PRN (22:15)
[2023-09-20 06:36] LABS: BASOPHILS PERCENT AUTO 0.5 % (0.2-1.5); EOSINOPHILS ABSOLUTE AUTO 0.1 x10-3/uL (0.0-0.8); EOSINOPHILS PERCENT AUTO 2.7 % (0.6-8.1); HEMATOCRIT 32.7 % (34.2-48.2); HEMOGLOBIN 10.7 g/dL (11.4-15.5); LYMPHOCYTES ABSOLUTE AUTO 1.8 x10-3/uL (1.0-4.4); LYMPHOCYTES PERCENT AUTO 42.5 % (18.4-52.1); MEAN CORPUSCULAR HGB CONC 32.9 g/dL (31.9-34.8); MEAN CORPUSCULAR VOLUME 94.3 fL (76.7-100.5); MONOCYTES ABSOLUTE AUTO 0.3 x10-3/uL (0.3-1.0); MONOCYTES PERCENT AUTO 7.5 % (4.4-15.7); NEUTROPHILS PERCENT AUTO 46.8 % (30.8-76.2); PLATELET COUNT,PLT 131 x10(3)uL (151-488); RED BLOOD CELL COUNT 3.46 x10(6)uL (3.60-5.20); RED CELL DISTRIBUTION WIDTH 14.6 % (12.3-16.5); WHITE BLOOD CELL COUNT,WBC 4.3 x10-3/uL (3.0-10.3)
[2023-09-20 06:43] LABS: A/G RATIO 0.7; ALANINE AMINOTRANSFERASE,ALT 27 U/L (12-36); ALBUMIN 2.5 g/dL (3.2-4.6); ALKALINE PHOSPHATASE 81 IU/L (56-112); ASPARTATE AMNIOTRANSFERASE,AST 27 IU/L (5-25); BILIRUBIN TOTAL 0.5 mg/dL (0.1-1.3); BLOOD UREA NITROGEN,BUN 9 mg/dL (7-18); BUN/CREATININE RATIO 7.5 (9-20); CALCIUM 7.7 mg/dL (8.6-10.2); CARBON DIOXIDE,CO2 26 mmol/L (21-32); CHLORIDE,CL 108 mmol/L (100-110); CREATININE 1.2 mg/dL (0.55-1.02); ESTIMATED GFR 50 mL/min (>60); GLUCOSE RANDOM 90 mg/dL (80-116); POTASSIUM,K 4.2 mmol/L (3.5-5.3); PROTEIN TOTAL,TP 6.1 g/dL (6.0-8.0); SODIUM,NA 141 mmol/L (135-145)
[2023-09-20] MEDS ORDERED: Triamcinolone Acetonide 0.1% Crm 15 GM Tube TOP PRN (13:09)
[2023-09-20] MEDS ORDERED: Ondansetron 4 MG Tab.DIS PO PRN (13:09)
[2023-09-20] MEDS ORDERED: Diclofenac Sodium 1% Gel 100 GM Tube TOP PRN (13:09)
[2023-09-20] MEDS ORDERED: tiZANidine 4 MG Tab PO PRN (13:09)
[2023-09-20] MEDS ORDERED: Furosemide 20 MG Tab PO PRN (13:09)
[2023-09-20] MEDS ORDERED: CLOBETASOL 0.05% TOP PRN (13:09)
[2023-09-20] MEDS ORDERED: Nitroglycerin 0.4 MG Tab.SL SL PRN (13:09)
[2023-09-20] MEDS ORDERED: Fluticasone NASAL Spray 16 GM Bottle NASBOTH PRN (13:09)
[2023-09-20] MEDS ORDERED: Lactulose Soln 10 GM/15 ML 30 ML UD Cup PO PRN (13:09)
[2023-09-20] MEDS ORDERED: ClonazePAM 0.5 MG Tab PO PRN (13:20)
[2023-09-20] MEDS ORDERED: Loratadine 10 MG Tab PO PRN (13:25)
[2023-09-20] MEDS ORDERED: SUMAtriptan 50 MG Tab PO PRN (13:27)
[2023-09-20] MEDS ORDERED: Carboxymethylcellulose Sodium 0.5% Ophth Soln 15 ML Bottle EYEBOTH PRN (13:27)
[2023-09-20] MEDS: Magnesium Oxide 400 MG Tab PO SCH (14:42)
[2023-09-20] MEDS: Pantoprazole 20 MG Tab, Delayed Release PO SCH (14:42)
[2023-09-20] MEDS: Aspirin 81 MG Tab.EC PO SCH (14:42)
[2023-09-20] MEDS: DULoxetine 60 MG Cap PO SCH (14:42)
[2023-09-20] MEDS: Famotidine 20 MG Tab PO SCH (17:00)
[2023-09-20] MEDS: Potassium Chloride 10 MEQ Tab.ER PO SCH (20:16)
[2023-09-20] MEDS ORDERED: Famotidine 20 MG Tab PO SCH (21:00)
[2023-09-20] MEDS: ClonazePAM 1 MG Tab PO SCH (22:29)
[2023-09-21 06:28] LABS: BASOPHILS PERCENT AUTO 0.8 % (0.2-1.5); EOSINOPHILS ABSOLUTE AUTO 0.1 x10-3/uL (0.0-0.8); EOSINOPHILS PERCENT AUTO 3.3 % (0.6-8.1); HEMATOCRIT 34.5 % (34.2-48.2); HEMOGLOBIN 11.5 g/dL (11.4-15.5); LYMPHOCYTES ABSOLUTE AUTO 1.6 x10-3/uL (1.0-4.4); LYMPHOCYTES PERCENT AUTO 35.4 % (18.4-52.1); MEAN CORPUSCULAR HGB CONC 33.2 g/dL (31.9-34.8); MEAN CORPUSCULAR VOLUME 93.4 fL (76.7-100.5); MEAN PLATELET VOLUME 8.8 fL (7.1-12.4); MONOCYTES ABSOLUTE AUTO 0.4 x10-3/uL (0.3-1.0); NEUTROPHILS ABSOLUTE AUTO 2.3 x10-3/uL (1.5-6.3); NEUTROPHILS PERCENT AUTO 51.5 % (30.8-76.2); PLATELET COUNT,PLT 135 x10(3)uL (151-488); RED CELL DISTRIBUTION WIDTH 14.3 % (12.3-16.5); WHITE BLOOD CELL COUNT,WBC 4.5 x10-3/uL (3.0-10.3)
[2023-09-21 06:35] LABS: BLOOD UREA NITROGEN,BUN 7 mg/dL (7-18); BUN/CREATININE RATIO 5.4 (9-20); CALCIUM 8.7 mg/dL (8.6-10.2); CARBON DIOXIDE,CO2 28 mmol/L (21-32); CHLORIDE,CL 109 mmol/L (100-110); CREATININE 1.3 mg/dL (0.55-1.02); ESTIMATED GFR 45 mL/min (>60); GLUCOSE RANDOM 90 mg/dL (80-116); POTASSIUM,K 4.5 mmol/L (3.5-5.3); SODIUM,NA 142 mmol/L (135-145)
[2023-09-21] MEDS: Folic Acid 0.4 MG Tab PO SCH (08:36)
[2023-09-21] MEDS: Isosorbide Mononitrate 30 MG Tab.ER PO SCH (08:37)
[2023-09-21] MEDS: atorvaSTATin 40 MG Tab PO SCH (08:38)
[2023-09-21] MEDS: Allopurinol 300 MG Tab PO SCH (08:39)
[2023-09-21] MEDS: Multivitamins with Iron/Calcium/Folic Acid/Minerals Tab PO SCH (08:39)
[2023-09-21] MEDS: Calcitriol 0.25 MCG Cap PO SCH (08:39)
[2023-09-21] MEDS: Acetaminophen 650 MG Tab.ER PO PRN (08:48)
[2023-09-21 16:28] VITALS: BP 164/79; PULSE 74
[2023-09-21] MEDS ORDERED: Non-Formulary Medication 1 Each (Estrogens, Conjugated [Premarin Vaginal Crm] 30 GM Tube) VAG SCH (21:00)
[2023-09-22 02:40] LABS: ADENOVIRUS 40/41 PCR Not Detected; ASTROVIRUS PCR Not Detected; CAMPYLOBACTER PCR Not Detected; CRYPTOSPORIDIUM PCR Not Detected; CYCLOSPORA CAYETANENSIS PCR Not Detected; ENTAMOEBA HISTOLYTICA PCR Not Detected; ENTEROAGGREGATIVE E. COLI PCR Not Detected; ENTEROPATHOGENIC E. COLI PCR Not Detected; ENTEROTOXIGENIC E. COLI PCR Not Detected; GIARDIA LAMBLIA PCR Not Detected; NOROVIRUS GI/GII PCR Not Detected; PLESIOMONAS SHIGELLOIDES PCR Not Detected; ROTAVIRUS A PCR Not Detected; SALMONELLA PCR Not Detected; SAPOVIRUS PCR Not Detected; SHIG/ENTEROINVASIVE E COLI PCR Not Detected; SHIGA TOXIN-PRODUC E. COLI PCR Not Detected; VIBRIO CHOLERAE PCR Not Detected; VIBRIO PCR Not Detected; YERSINIA ENTEROCOLITICA PCR Not Detected
== END 2023-09-21 16:49 | disposition home or self-care (01) | DRG 392 ==
LOC: FB.ED 12:52 → OBSVTOIN 19:19 → FB.MS 19:19
PROVIDERS: ADMIT Family Medicine; ATTEND Internal Medicine
DX: K52.9 Noninfective gastroenteritis and colitis, unspecified (principal); R19.7 Diarrhea, unspecified; D84.9 Immunodeficiency, unspecified; I10 Essential (primary) hypertension; E86.0 Dehydration; I25.10 Atherosclerotic heart disease of native coronary artery without angina pectoris; J45.909 Unspecified asthma, uncomplicated; M19.90 Unspecified osteoarthritis, unspecified site; E66.9 Obesity, unspecified; Z68.35 Body mass index [BMI] 35.0-35.9, adult; F41.9 Anxiety disorder, unspecified; F32.A Depression, unspecified; Z88.8 Allergy status to other drugs, medicaments and biological substances; K21.9 Gastro-esophageal reflux disease without esophagitis; I25.2 Old myocardial infarction; G47.30 Sleep apnea, unspecified; Z91.048 Other nonmedicinal substance allergy status; Z88.6 Allergy status to analgesic agent; N18.30 Chronic kidney disease, stage 3 unspecified; M79.7 Fibromyalgia; I12.9 Hypertensive chronic kidney disease with stage 1 through stage 4 chronic kidney disease, or unspecified chronic kidney disease; G43.909 Migraine, unspecified, not intractable, without status migrainosus; Z88.0 Allergy status to penicillin; Z88.5 Allergy status to narcotic agent; Z88.1 Allergy status to other antibiotic agents; Z88.2 Allergy status to sulfonamides; Z95.5 Presence of coronary angioplasty implant and graft; Z98.1 Arthrodesis status; Z90.49 Acquired absence of other specified parts of digestive tract; Z79.82 Long term (current) use of aspirin; Z79.02 Long term (current) use of antithrombotics/antiplatelets; Z91.040 Latex allergy status; Z79.899 Other long term (current) drug therapy; Z90.710 Acquired absence of both cervix and uterus; Z96.642 Presence of left artificial hip joint; Z96.652 Presence of left artificial knee joint; Z98.890 Other specified postprocedural states
CPT/HCPCS: 36415; 74176; 80048; 80053; 81001; 83605; 83690; 83735; 85025; 86140; 87230; 87507; 94150; 96361; 96372; 96374; 96375; 96376; 97161-GP; 97165-GO; 97530-GP; 97535-GO; 99221; 99231; 99238; 99285; 99285-25; A9270-GY; J1650; J1885; J2405; J3490; J7030; U0002